=== PATIENT | male | born 1940 | race Caucasian/White ===

== ENCOUNTER 2020-12-28 16:41 | Inpatient (IN) | payer OTHER, SELFPAY ==
[2020-12-28 17:16] VITALS: BMI 35.2
[2020-12-28 18:09] VITALS: BP 118/64; PULSE 62; RESP 22; TEMP 36.7; O2SAT 93; O2SAT 96
--- NOTE | 2020-12-28 19:08 | P.HP_ITS ---
History of Present Illness History of Present Illness Date Patient Seen: 12/28/20 Time Patient Seen: 18:00 Chief complaint: DIRECT ADMIT FROM [facility] Narrative: Patient is 80-year-old male with history insulin dependent type 2 diabetes, hypertension, hyperlipidemia, TIA in April 2019 presented to [facility] Emergency Department on 12/27 with complaints of weakness, cough, diarrhea and confusion. Patient is able to give limited history but son reports that he has been declining in the past week with severe diarrhea and weakness to the point where son had to help him with all activities. Patient normally ambulates on his own and has been unable to get out of chair without help. Son also noticed there was some blood in his adult diaper. On presentation to ER patient had respiratory rate of 27 and sat of 84% on room air and subsequently 97% on 2 L. Noncontrast chest an abdomen pelvis CT showed bilateral diffuse consolidation as well as bilateral hydroureter and hydronephrosis. Outside labs showed WBC 5.4, hemoglobin 12.1, platelets 134. On chemistry sodium 137, potassium 4.3, chloride 104, CO2 16, anion gap 17, glucose 84, BUN 79, creatinine 3.28. He had mildly elevated LFTs with ALT 80, AST 75, normal bilirubin 0.2, normal alk-phos 89. He had abnormal UA with 4+ bacteria and greater than 100 WBC. Patient does note chronic difficulty urinating and history of BPH though is not on medications for his prostate. Patient is not vaccinated for COVID. Patient denies history of FL or stent or CHF. He is on furosemide for chronic edema in legs. Family history noncontributory. Lives with his son. Interventions in outside ER included aggressive IV hydration of 5 L, Rocephin 1 g IV, dexamethasone 6 mg IV. Patient is on Humulin N 68 units b.i.d., metformin 850 mg t.i.d., lisinopril 20 mg HS, glimepiride 4 mg b.i.d., furosemide 20 mg b.i.d., atorvastatin 80 mg HS, it atenolol 50 mg HS, clopidogrel 75 mg daily Meds Home Medications and Allergies Home Medications Medication Instructions Recorded Confirmed Type atenolol 50 mg tablet 50 mg PO BEDTIME 12/28/20 12/28/20 History atorvastatin 40 mg tablet 80 mg PO BEDTIME 12/28/20 12/28/20 History clopidogrel 75 mg tablet 75 mg PO DAILY 12/28/20 12/28/20 History furosemide 20 mg tablet 20 mg PO BID 12/28/20 12/28/20 History glimepiride 4 mg tablet 4 mg PO BID 12/28/20 12/28/20 History insulin NPH isoph U-100 human 100 68 unit SUBCUT BID 12/28/20 12/28/20 History unit/mL subcutaneous suspension (Humulin N NPH U-100 Insulin (isophane susp)) lisinopril 20 mg tablet 50 mg PO BEDTIME 12/28/20 12/28/20 History metformin 850 mg tablet 850 mg PO TID 12/28/20 12/28/20 History Review of Systems Review of Systems Narrative: Complete ROS negative unless otherwise noted. Exam Vital Signs (past 8 hours): - 12/28/20 18:09 Temperature 98.1 F Pulse Rate 62 Respiratory Rate 22 Blood Pressure 118/64 Pulse Oximetry 96 Oxygen Flow Rate 5 Narrative Exam Narrative: General: Obese male BMI 35 who appears lethargic but breathing comfortably HEENT: Pupils equal, anicteric Neck: No lymphadenopathy Lungs: Clear to auscultation Heart: Regular rhythm without murmur Abdomen: Obese, nontender, no HSM Extremities: Chronic venous stasis changes with mild edema and scabs on the right lower leg Neurological: Oriented to person and place, affect normal, speech somewhat diminished with difficulty recalling recent events of illness, no focal weakness Assessment & Plan Assessment & Plan narrative: 1. COVID-19 pneumonia with acute hypoxic respiratory failure -COVID positive with bilateral consolidation on outside CT -patient moderately ill with hypoxia on presentation, cough, profound weakness, and diarrhea as well as noted in acute renal failure -provide supplemental O2 currently on 4 L DC -dexamethasone 6 mg IV q.d. for up to 10 days, monitor blood sugars closely -remdesivir 200 mg x 1 then 100 mg IV q.d. x4 days -telemetry monitoring -check ESR, CRP, D-dimer -patient at high risk for clinical decline and potential need for mechanical ventilation to which he does provide consent 2. Urinary tract infection -outside UA with many bacteria and WBC, culture pending -continue Rocephin 1 g IV q.d. started at outside hospital, duration 7 days -follow-up culture results 3. Chronic urinary retention with bilateral hydronephrosis on CT -Mendez placed at outside ED, manage Mendez -start tamsulosin 0.4 mg q.d. with attempted trial of Mendez removal in 1 week 4. Insulin-dependent type 2 diabetes -check A1c -home regimen is Humulin N 68 units b.i.d., glimepiride 4 mg b.i.d. and metformin 850 mg t.i.d. -start Lantus 30 units b.i.d. which is approximately half his home insulin dosing, medium dose sliding scale -patient may require more insulin while on dexamethasone -hold glimepiride and metformin due to acute renal failure 5. Acute kidney injury -likely prerenal due to diarrhea associated with COVID -serum creatinine 3.2 at outside ED, baseline creatinine appears 1.48 from April 2019 -patient was aggressively hydrated at outside ED -recheck labs 6. Hypertension -hold patient's lisinopril and furosemide due to NIXON -continue atenolol 50 mg HS 7. History of TIA -continue patient's clopidogrel 75 mg q.d. and atorvastatin 80 mg q.p.m. DVT prophylaxis: Lovenox 30 mg subQ q.d. renal dosed Code status: Full code per wishes expressed at time of admission Surrogate decision maker: Son, review plan of care with patient's son Ranjit Curtis Time Spent With Patient Critical Care time: I spent a total of [] minutes of critical care time on this patient's care today; this time is exclusive of procedural time.
[2020-12-28 19:20] VITALS: O2SAT 93
[2020-12-28 19:30] LABS: Add Manual Diff / Slide Review NO; Basophils Absolute Auto 0 /uL (0-100); Basophils Percent Auto 0.1 % (0-2); Eosinophils Absolute Auto 0 /uL (0-450); Hematocrit 41.6 % (41-53); Hemoglobin 13.5 g/dL (13.5-17.5); Lymphocytes Absolute Auto 600 /uL (1100-4500); Lymphocytes Percent Auto 10.8 % (25-40); Mean Corpuscular HGB Conc 32.5 % (30-36); Monocytes Absolute Auto 400 /uL (0-900); Monocytes Percent Auto 7.3 % (3-14); Neutrophils Absolute Auto 4300 /uL (1500-7000); Neutrophils Percent Auto 81.8 % (50-75); Platelet Count 149 X10^3/uL (150-400); Red Blood Cell Count 4.84 X10^6/uL (4.5-5.9); Red Cell Distribution Width 16.3 % (11.6-14.8); White Blood Cell Count 5.3 X10^3/uL (4.5-11.0)
[2020-12-28 19:47] LABS: Alanine Aminotransferase 77 IU/L (<50); Albumin 3.5 g/dL (3.5-5.0); Albumin Globulin Ratio 1.1 (1.0-2.8); Alkaline Phosphatase 84 U/L (38-126); Aspartate Aminotransferase 88 IU/L (17-59); BUN Creatinine Ratio 35.3 (6-22); Bilirubin Total 0.3 mg/dL (0.2-1.3); Blood Urea Nitrogen 67 mg/dL (9-20); Calcium 7.6 mg/dL (8.4-10.2); Carbon Dioxide 15 mmol/L (22-32); Chloride 113 mmol/L (98-107); Estimated Glomerular Filt Rate 34.3 mL/min (>60); Globulin 3.3 g/dL (1.7-4.1); Glucose 201 mg/dL (80-110); HEMOLYSIS < 15 (0-50); Potassium 4.6 mmol/L (3.4-5.1); Sodium 140 mmol/L (137-145); Total Protein 6.8 g/dL (6.3-8.2)
[2020-12-28 19:48] LABS: Prothrombin Time 11.6 SECONDS (10.1-12.7)
[2020-12-28 19:56] LABS: D Dimer 517 ng/mL (<230)
[2020-12-28 20:00] LABS: Hemoglobin A1C% w Est Avg Glu 10.7 % (4.0-6.0)
[2020-12-28 20:04] LABS: C-Reactive Protein Quant 19.4 mg/dL (<1.0)
[2020-12-28 20:23] LABS: Erythrocyte Sedimentation Rate 58 MM/HR (0-15)
[2020-12-28] MEDS: REMDESIVIR 200 MG in SODIUM CHLORIDE 0.9% 210 ML 250 ML IV (20:29)
[2020-12-28] MEDS: ATORVASTATIN 20 MG TABLET 80 MG PO (20:32)
[2020-12-28] MEDS: INSULIN GLARGINE 100 UNIT/ML 3ML PEN 30 UNIT SUBCUT (21:46)
[2020-12-28] MEDS: INSULIN LISPRO 100 UNIT/ML 3ML VIAL SUBCUT (21:47)
[2020-12-28 22:09] VITALS: O2SAT 92
[2020-12-29] VITALS (18 sets, daily range): BP systolic 107–155; BP diastolic 58–83; PULSE 55–74; RESP 14–20; TEMP 36.1–36.6; O2SAT 92–98
[2020-12-29] MEDS: cefTRIAXone 1,000 MG in SODIUM CHLORIDE 0.9% 100 ML 200 ML IV (02:29)
[2020-12-29] MEDS: SODIUM CHLORIDE 0.9% 250 ML 21 ML IV (02:29)
[2020-12-29] MEDS: SODIUM CHLORIDE 0.9% FLUSH 10 ML IV ×3 (03:22→18:52)
[2020-12-29 05:05] LABS: Add Manual Diff / Slide Review NO; Basophils Absolute Auto 0 /uL (0-100); Basophils Percent Auto 0.2 % (0-2); Eosinophils Absolute Auto 0 /uL (0-450); Hematocrit 37.7 % (41-53); Hemoglobin 12.2 g/dL (13.5-17.5); Lymphocytes Absolute Auto 800 /uL (1100-4500); Lymphocytes Percent Auto 16.4 % (25-40); Mean Corpuscular HGB Conc 32.4 % (30-36); Mean Corpuscular Hemoglobin 27.6 PG (26-34); Mean Corpuscular Volume 85.3 fL (80-100); Monocytes Absolute Auto 500 /uL (0-900); Monocytes Percent Auto 9.7 % (3-14); Neutrophils Absolute Auto 3500 /uL (1500-7000); Neutrophils Percent Auto 73.7 % (50-75); Platelet Count 141 X10^3/uL (150-400); Red Blood Cell Count 4.42 X10^6/uL (4.5-5.9); Red Cell Distribution Width 15.8 % (11.6-14.8); White Blood Cell Count 4.8 X10^3/uL (4.5-11.0)
[2020-12-29 05:15] LABS: Alanine Aminotransferase 75 IU/L (<50); Alkaline Phosphatase 76 U/L (38-126); Aspartate Aminotransferase 84 IU/L (17-59); Bilirubin Total 0.1 mg/dL (0.2-1.3); Blood Urea Nitrogen 65 mg/dL (9-20); Calcium 7.8 mg/dL (8.4-10.2); Carbon Dioxide 18 mmol/L (22-32); Chloride 116 mmol/L (98-107); Estimated Glomerular Filt Rate 44.7 mL/min (>60); Glucose 305 mg/dL (80-110); HEMOLYSIS < 15 (0-50); Potassium 4.7 mmol/L (3.4-5.1); Sodium 142 mmol/L (137-145)
[2020-12-29] MEDS: METFORMIN HCL 500 MG TABLET 1000 MG PO ×2 (09:25→17:05)
[2020-12-29] MEDS: DEXAMETHASONE 10 MG/ML VIAL 6 MG IV (09:26)
[2020-12-29] MEDS: TAMSULOSIN 0.4 MG CAPSULE PO (09:26)
[2020-12-29] MEDS: ENOXAPARIN 30 MG/0.3 ML SYRINGE SUBCUT (09:26)
[2020-12-29] MEDS: CLOPIDOGREL 75 MG TABLET PO (09:26)
[2020-12-29] MEDS: INSULIN GLARGINE 100 UNIT/ML 3ML PEN 60 UNIT SUBCUT ×2 (09:29→20:42)
[2020-12-29] MEDS: INSULIN LISPRO 100 UNIT/ML 3ML VIAL SUBCUT ×4 (09:30→20:42)
[2020-12-29] MEDS: INSULIN LISPRO 100 UNIT/ML 3ML VIAL 15 UNIT SUBCUT ×3 (09:31→17:07)
[2020-12-29] MEDS: ACETAMINOPHEN 325 MG TABLET 650 MG PO ×2 (11:19→20:41)
--- NOTE | 2020-12-29 12:10 | CM.DANOTE ---
Patient is an 80 yo male who was admitted on 12/28/20 as Direct Admit from [facility] for COVID. Pt has [facility] ADV for insurance and his PCP is a doctor at the [facility]. EMR was reviewed. Per , pt Unvaccinated and admitted for COVID pneumonia and UTI and currently Full Code. SW spoke to pt's son via phone as pt currently on oxygen and in COVID precautions. Son [place] confirms he is pt's DPOA but unsure where pt's pwk/documentation is located and does not appear to be scanned into pt's current EMR. Son confirms that pt resides in son's home in [place] and is typically quite independent with ADL's at baseline. Pt prepares his own morning coffee and food as son works guard entrance registrar and ambulates with typically a cane but past couple weeks has declined in strength and has been using his walker. Pt still drives and son has been considering discussing giving up driving with the pt but as of yet has not. Son denies any hx of HH or SNF but states pt's spouse at [facility] and therefore if SNF needed they would prefer a different location. Son states he feels HH likely needed and SW discussed services and frequency and coverage under [facility] and son would be very agreeable to HH if pt safe for d/c home. No preference on HH agency. SW also discussed SNF in case pt not safe for d/c directly home and need for [facility] agency pending PT eval and recommendations once pt is more medically appropriate to participate. Son also discussed that he plans to begin seeking further DME like raised toilet seat etc and SW discussed that hospital PT/OT eval could help with determining DME needs and list of loaner/rental options and that HH could also do home assessment for DME needs and recommendations. Son interested in PP CG list as well for likely terminal make up operator needs once HH completed. Son has been experiencing COVID symptoms as well and awaiting his COVID test results from [employer] and has been quarantining himself but states once he tests negative he will need to return to work. HH vs SNF pending pt progress and eventual PT/OT eval. If SNF, [facility] auth will be needed. SW made HH initial referral to [facility] based on Vendor Calendar, but no F2F completed yet as still waiting for PT eval and recommendations. Plan: SW to follow closely for pt progress towards eventual PT/OT eval and recommendations towards determining HH vs SNF. If SNF, [facility] auth needed. If HH then F2F needed. Follow closely. BALAJI Mcdermott Discharge Planning/Care Management CM Discharge Assessment Start: 12/29/20 11:58 Freq: Status: Active Protocol: Document 12/29/20 11:58 BF (Rec: 12/29/20 12:10 BF [id number]) Discharge Planning Assessment Assigned Inverted Block Operator BALAJI Reich DPOA/Assigned Designee Name cherie Curtis Contact Information [phone] Advance Directives? No: son unsure where pwk is Advance Directives on File No History Provided By Patient,Family Member,Medical Record Has Patient been admitted in last 30 No days? Prior Living Arrangements House Household Members children Type of transporation used prior to Drives own vehicle admit Comment Lives with cherie Niño and still drives, but somewhat unsafely Independent with ADL's Yes Is patient alert and oriented? Yes Needs Assistance With Home Chores / Shopping Caregiver for Another No DME Already Rented / Owned FWW / Walker,Cane Patient/Family Preference Residential Facility,Home with Home Health Comment SNF vs HH pending eventual PT eval Barriers to Discharge No Discharge Plan Home with Home Health Community Services Physical Therapy,Occupational Therapy,Home Health Aid,Home Health Nurse Transportation Arrangement If safe for home, son can transport Referrals Initiated Home Health If patient plan is home with home health No : Has signed face to face form been completed? Medicare Choice List Provided Yes SNF/HH Preference No HH preference Review Status In Process Please Provide Date Initial DC 12/29/20 Assessment Was Performed Next Review Type Continued Stay Review
--- NOTE | 2020-12-29 15:58 | P.PN_ITS ---
Subjective Subjective Date Patient Seen: 12/29/20 Interval history: 80-year-old male with history insulin dependent type 2 diabetes, hypertension, hyperlipidemia, TIA in April 2019 presented initially to [facility] Emergency Department on 12/27 with complaints of weakness, cough, diarrhea and confusion.? Admitted here for COVID-19 pneumonia, hypoxic respiratory failure, NIXON and UTI. Patient states he is feeling significantly better since yesterday, breathing easier, less diarrhea. He is currently on 3 L O2. Exam Vital Signs (past 8 hours): - 12/29/20 08:12 12/29/20 08:28 12/29/20 11:30 Temperature 97.1 F L 97.9 F Pulse Rate 68 74 Respiratory Rate 20 20 Blood Pressure 133/65 147/83 H Pulse Oximetry 93 93 92 12/29/20 12:00 12/29/20 13:11 12/29/20 13:12 Temperature Pulse Rate Respiratory Rate Blood Pressure Pulse Oximetry 92 93 93 12/29/20 13:21 12/29/20 13:52 Temperature 97.3 F L 97.3 F L Pulse Rate 55 L 59 L Respiratory Rate 14 16 Blood Pressure 134/69 155/74 H Pulse Oximetry 97 98 Oxygen Delivery Method Nasal Cannula Oxygen Flow Rate 0 Narrative Exam Narrative: General: Alert and cooperative male without overtly labored breathing Lungs: Able to speak full sentences, CTA Heart: Regular rhythm Extremities: No edema Neurological: Appears well oriented Objective Labs Result Diagrams: 12/29/20 04:40 12/29/20 04:40 Labs: Laboratory Results - last 24 hr 12/28/20 12/28/20 12/28/20 19:20 19:20 19:20 WBC 5.3 RBC 4.84 Hgb 13.5 Hct 41.6 MCV 86.0 MCH 28.0 MCHC 32.5 RDW 16.3 H Plt Count 149 L Neut % (Auto) 81.8 H Lymph % (Auto) 10.8 L [place] % (Auto) 7.3 Eos % (Auto) 0.0 L Baso % (Auto) 0.1 Neut # (Auto) 4300 Lymph # (Auto) 600 L [place] # (Auto) 400 Eos # (Auto) 0 Baso # (Auto) 0 ESR PT INR D-Dimer Sodium 140 Potassium 4.6 Chloride 113 H Carbon Dioxide 15 L BUN 67 H Creatinine 1.90 H Estimated GFR 34.3 L BUN/Creatinine Ratio 35.3 H Glucose 201 H Hemoglobin A1c 10.7 H Calcium 7.6 L Total Bilirubin 0.3 AST 88 H ALT 77 H Alkaline Phosphatase 84 C-Reactive Protein Total Protein 6.8 Albumin 3.5 Globulin 3.3 Albumin/Globulin Ratio 1.1 12/28/20 12/28/20 12/28/20 19:20 19:20 19:20 WBC RBC Hgb Hct MCV MCH MCHC RDW Plt Count Neut % (Auto) Lymph % (Auto) [place] % (Auto) Eos % (Auto) Baso % (Auto) Neut # (Auto) Lymph # (Auto) [place] # (Auto) Eos # (Auto) Baso # (Auto) ESR 58 H PT 11.6 INR 1.0 D-Dimer 517 H Sodium Potassium Chloride Carbon Dioxide BUN Creatinine Estimated GFR BUN/Creatinine Ratio Glucose Hemoglobin A1c Calcium Total Bilirubin AST ALT Alkaline Phosphatase C-Reactive Protein Total Protein Albumin Globulin Albumin/Globulin Ratio 12/28/20 12/29/20 12/29/20 19:20 04:40 04:40 WBC 4.8 RBC 4.42 L Hgb 12.2 L Hct 37.7 L MCV 85.3 MCH 27.6 MCHC 32.4 RDW 15.8 H Plt Count 141 L Neut % (Auto) 73.7 Lymph % (Auto) 16.4 L [place] % (Auto) 9.7 Eos % (Auto) 0.0 L Baso % (Auto) 0.2 Neut # (Auto) 3500 Lymph # (Auto) 800 L [place] # (Auto) 500 Eos # (Auto) 0 Baso # (Auto) 0 ESR PT INR D-Dimer Sodium 142 Potassium 4.7 Chloride 116 H Carbon Dioxide 18 L BUN 65 H Creatinine 1.51 H Estimated GFR 44.7 L BUN/Creatinine Ratio 43.0 H Glucose 305 H D Hemoglobin A1c Calcium 7.8 L Total Bilirubin 0.1 L AST 84 H ALT 75 H Alkaline Phosphatase 76 C-Reactive Protein 19.4 H Total Protein 6.0 L Albumin 3.0 L Globulin 3.0 Albumin/Globulin Ratio 1.0 PFSH Social History household members: children Assessment & Plan Assessment & Plan narrative: 1. COVID-19 pneumonia with acute hypoxic r espiratory failure -unvaccinated male, COVID positive with bilateral consolidation on outside CT -elevated ESR, CRP, D-dimer -patient presented moderately ill with hypoxia on presentation, cough, profound weakness, and diarrhea as well as noted in acute renal failure -provide supplemental O2 currently on 3 L NC, improving O2 requirement -dexamethasone 6 mg IV q.d. for up to 10 days, monitor blood sugars closely -remdesivir 200 mg x 1 then 100 mg IV q.d. x4 days -telemetry monitoring -patient at high risk for clinical decline and potential need for mechanical ventilation to which he does provide consent 2. Urinary tract infection -outside UA with many bacteria and WBC, culture pending -continue Rocephin 1 g IV q.d. started at outside hospital, duration 7 days -follow-up culture results from [facility] 3. Chronic urinary retention with bilateral hydronephrosis on CT -Mendez placed at outside ED, manage Mendez -started tamsulosin 0.4 mg q.d. with attempted trial of Mendez removal in 1-2 weeks 4. 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 and metformin 850 mg t.i.d. -12/29 increased Lantus to 60 units b.i.d., started insulin lispro 15 units t.i.d. a.c., continued insulin lispromedium dose sliding scale -glucose 300 range on dexamethasone, continue insulin dose adjustment as required -holding glimepiride and metformin due to acute renal failure 5. Acute kidney injury, resolving -likely prerenal due to diarrhea associated with COVID -serum creatinine 3.2 at outside ED, baseline creatinine appears 1.48 from April 2019 -patient was aggressively hydrated at outside ED, has not required hydration here -recheck labs 6. Hypertension -holding patient's lisinopril and furosemide due to NIXON -continue atenolol 50 mg HS 7. History of TIA -continued patient's clopidogrel 75 mg q.d. and atorvastatin 80 mg q.p.m. 8. Acute metabolic encephalopathy, resolving -patient presented with confusion in setting of hypoxia, NIXON, COVID pneumonia and UTI DVT prophylaxis:? Lovenox 30 mg subQ q.d. renal dosed Code status:? Full code per wishes expressed by patient at time of admission Surrogate decision maker: Son, review plan of care with patient's son Ranjit Curtis Time Spent With Patient Critical Care time: I spent a total of [] minutes of critical care time on this patient's care today; this time is exclusive of procedural time.
[2020-12-29] MEDS: REMDESIVIR 100 MG in SODIUM CHLORIDE 0.9% 230 ML 250 ML IV (18:52)
[2020-12-29] MEDS: ATORVASTATIN 20 MG TABLET 80 MG PO (20:41)
[2020-12-29] MEDS: atenoloL 50 MG TABLET PO (20:41)
[2020-12-30] VITALS (12 sets, daily range): BP systolic 101–133; BP diastolic 55–99; PULSE 48–60; RESP 15–18; TEMP 35.8–36.6; O2SAT 90–96
[2020-12-30] MEDS: cefTRIAXone 1,000 MG in SODIUM CHLORIDE 0.9% 100 ML 200 ML IV (02:21)
[2020-12-30] MEDS: SODIUM CHLORIDE 0.9% FLUSH 10 ML IV ×3 (02:22→20:45)
[2020-12-30 09:25] LABS: BUN Creatinine Ratio 54.1 (6-22); Blood Urea Nitrogen 59 mg/dL (9-20); Calcium 8.3 mg/dL (8.4-10.2); Carbon Dioxide 19 mmol/L (22-32); Chloride 115 mmol/L (98-107); Estimated Glomerular Filt Rate > 60.0 mL/min (>60); Glucose 189 mg/dL (80-110); HEMOLYSIS < 15 (0-50); Potassium 4.9 mmol/L (3.4-5.1); Sodium 142 mmol/L (137-145)
[2020-12-30] MEDS: METFORMIN HCL 500 MG TABLET 1000 MG PO ×2 (09:51→17:09)
[2020-12-30] MEDS: INSULIN LISPRO 100 UNIT/ML 3ML VIAL SUBCUT ×4 (09:52→20:45)
[2020-12-30] MEDS: INSULIN GLARGINE 100 UNIT/ML 3ML PEN 60 UNIT SUBCUT ×2 (09:54→20:44)
[2020-12-30] MEDS: INSULIN LISPRO 100 UNIT/ML 3ML VIAL 15 UNIT SUBCUT ×3 (09:55→17:15)
[2020-12-30] MEDS: TAMSULOSIN 0.4 MG CAPSULE PO (09:56)
[2020-12-30] MEDS: CLOPIDOGREL 75 MG TABLET PO (09:56)
[2020-12-30] MEDS: DEXAMETHASONE 10 MG/ML VIAL 6 MG IV (09:56)
[2020-12-30] MEDS: ENOXAPARIN 40 MG/0.4 ML SYRINGE SUBCUT (09:57)
--- NOTE | 2020-12-30 12:22 | PM.PN.1 ---
Subjective Subjective Date Patient Seen: 12/30/20 Time Patient Seen: 08:00 Interval history: Today he has not had significant change in his breathing. He is slightly short of breath, coughing. He is more concerned about his diarrhea. He continues to have frequent diarrhea. Exam Vital Signs (past 8 hours): - 12/30/20 04:50 12/30/20 05:00 12/30/20 07:25 Temperature 96.8 F L Pulse Rate 48 L Respiratory Rate 16 Blood Pressure 116/63 Pulse Oximetry 91 91 92 12/30/20 08:30 12/30/20 12:00 Temperature 96.5 F L 96.8 F L Pulse Rate 53 L 60 Respiratory Rate 15 15 Blood Pressure 126/59 L 133/99 H Pulse Oximetry 93 96 Oxygen Delivery Method Nasal Cannula Oxygen Flow Rate 6 Narrative Exam Narrative: GEN: no acute distress CV: regular rate and rhythm, no murmurs PULM: clear bilaterally ABD: soft, nontender, nondistended, normal bowel sounds SKIN: intertrigo in skin folds Objective Labs Result Diagrams: 12/29/20 04:40 12/30/20 08:46 Labs: Laboratory Results - last 24 hr 12/30/20 08:46 Sodium 142 Potassium 4.9 Chloride 115 H Carbon Dioxide 19 L BUN 59 H Creatinine 1.09 Estimated GFR > 60.0 BUN/Creatinine Ratio 54.1 H Glucose 189 H D Calcium 8.3 L PFSH Social History household members: children Assessment & Plan Assessment & Plan narrative: 1. COVID-19 pneumonia with acute hypoxic respiratory failure -unvaccinated male, COVID positive with bilateral consolidation on outside CT -elevated ESR, CRP, D-dimer -patient presented moderately ill with hypoxia on presentation, cough, profound weakness, and diarrhea as well as noted in acute renal failure -provide supplemental O2 currently on 3 L NC, improving O2 requirement -dexamethasone 6 mg IV q.d. for up to 10 days, monitor blood sugars closely -remdesivir 200 mg x 1 then 100 mg IV q.d. x4 days -telemetry monitoring -patient at high risk for clinical decline and potential need for mechanical ventilation to which he does provide consent 2. Urinary tract infection -outside UA with many bacteria and WBC, culture pending -continue Rocephin 1 g IV q.d. started at outside hospital, duration 7 days -follow-up culture results from [facility] 3. Chronic urinary retention with bilateral hydronephrosis on CT -Mendez placed at outside ED, manage Mendez -started tamsulosin 0.4 mg q.d. with attempted trial of Mendez removal in 1-2 weeks 4. 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 and metformin 850 mg t.i.d. -12/29 increased Lantus to 60 units b.i.d., started insulin lispro 15 units t.i.d. a.c., continued insulin lispromedium dose sliding scale -glucose 300 range on dexamethasone, continue insulin dose adjustment as required -holding glimepiride and metformin due to acute renal failure 5. Acute kidney injury, resolved -likely prerenal due to diarrhea associated with COVID -serum creatinine 3.2 at outside ED, baseline creatinine appears 1.48 from April 2019, improved to 1.0 -patient was aggressively hydrated at outside ED, has not required hydration here 6. Hypertension -holding patient's lisinopril and furosemide due to NIXON -continue atenolol 50 mg HS 7. History of TIA -continued patient's clopidogrel 75 mg q.d. and atorvastatin 80 mg q.p.m. 8. Acute metabolic encephalopathy, resolving -patient presented with confusion in setting of hypoxia, NIXON, COVID pneumonia and UTI DVT prophylaxis:? Lovenox 30 mg subQ q.d. renal dosed Code status:? Full code per wishes expressed by patient at time of admission Surrogate decision maker: Ranjit Jolly Time Spent With Patient Critical Care time: I spent a total of [] minutes of critical care time on this patient's care today; this time is exclusive of procedural time.
[2020-12-30] MEDS: NYSTATIN POWDER 15GM 1 APPLIC TOP (17:10)
[2020-12-30] MEDS: REMDESIVIR 100 MG in SODIUM CHLORIDE 0.9% 230 ML 250 ML IV (19:31)
[2020-12-30 20:37] LABS: Clostridium Difficile Tox PCR Negative for C. diff (Negative)
[2020-12-30] MEDS: ATORVASTATIN 20 MG TABLET 80 MG PO (20:42)
[2020-12-30] MEDS: atenoloL 50 MG TABLET PO (20:42)
[2020-12-31] VITALS (25 sets, daily range): BP systolic 99–155; BP diastolic 50–75; PULSE 51–90; RESP 18–30; TEMP 35.9–36.6; O2SAT 85–95
--- NOTE | 2020-12-31 00:55 | PC.NURSE ---
Addendum entered by Sho Laureano R.N. 12/31/20 06:52: Patient desating during the night and was on 11L/min HFNC earlier with sat at 90% but is now consistently dropping down to 87% at rest so have now increased up to 14L/min in order to get sat up to 90%. RT contacted regarding increased oxygen needs. Original Note: Patient is alert and oriented but soft spoken and hard of hearing. Breath sounds diminished throughout but CTA. On oxygen at 7L/min per HFNC with sat of 92%. Slight SOB at rest but desats with activity of turning side to side. Occasional non-productive cough. HRR w/telemetry reading of SR w/BBB. Denies nausea. BT present and abdomen soft. Incontinent of stool plus had BM on bedpan. Indwelling catheter is patent. Is being assisted to reposition but preferring to lie on back with HOB elevated. Denies pain. On isolation for COVID. Fall risk score is high and bed alarm is activated.
[2020-12-31] MEDS: cefTRIAXone 1,000 MG in SODIUM CHLORIDE 0.9% 100 ML 200 ML IV (02:31)
[2020-12-31] MEDS: SODIUM CHLORIDE 0.9% 250 ML 21 ML IV ×2 (02:32→18:46)
[2020-12-31] MEDS: SODIUM CHLORIDE 0.9% FLUSH 10 ML IV ×3 (02:32→18:47)
[2020-12-31 05:40] LABS: BUN Creatinine Ratio 55.8 (6-22); Blood Urea Nitrogen 58 mg/dL (9-20); Calcium 8.6 mg/dL (8.4-10.2); Carbon Dioxide 19 mmol/L (22-32); Chloride 116 mmol/L (98-107); Estimated Glomerular Filt Rate > 60.0 mL/min (>60); Glucose 166 mg/dL (80-110); HEMOLYSIS < 15 (0-50); Sodium 141 mmol/L (137-145)
[2020-12-31 05:43] LABS: Potassium 5.6 mmol/L (3.4-5.1)
[2020-12-31 05:45] LABS: Hemoglobin 12.6 g/dL (13.5-17.5); Mean Corpuscular HGB Conc 32.2 % (30-36); Mean Corpuscular Hemoglobin 27.6 PG (26-34); Mean Corpuscular Volume 85.5 fL (80-100); Platelet Count 192 X10^3/uL (150-400); Red Blood Cell Count 4.56 X10^6/uL (4.5-5.9); White Blood Cell Count 7.7 X10^3/uL (4.5-11.0)
[2020-12-31] MEDS: INSULIN LISPRO 100 UNIT/ML 3ML VIAL SUBCUT ×3 (08:46→17:30)
[2020-12-31] MEDS: INSULIN LISPRO 100 UNIT/ML 3ML VIAL 15 UNIT SUBCUT ×3 (08:47→17:34)
[2020-12-31] MEDS: TAMSULOSIN 0.4 MG CAPSULE PO (08:48)
[2020-12-31] MEDS: CLOPIDOGREL 75 MG TABLET PO (08:48)
[2020-12-31] MEDS: INSULIN GLARGINE 100 UNIT/ML 3ML PEN 60 UNIT SUBCUT ×2 (08:49→21:06)
[2020-12-31] MEDS: DEXAMETHASONE 10 MG/ML VIAL 6 MG IV (08:51)
[2020-12-31] MEDS: ENOXAPARIN 40 MG/0.4 ML SYRINGE SUBCUT ×2 (08:58→21:04)
[2020-12-31] MEDS: METFORMIN HCL 500 MG TABLET 1000 MG PO ×2 (09:00→18:45)
--- NOTE | 2020-12-31 11:57 | RT ---
Consulted Dr. Linn about follow-up ABG and he declined, will continue to monitor and update as needed.
--- NOTE | 2020-12-31 14:35 | P.PN_ITS ---
Subjective Subjective Date Patient Seen: 12/31/20 Time Patient Seen: 14:35 Interval history: Today he has not had significant change in his breathing, actually feels somewhat better but was advanced to heated high flow. Started on baricitinib today. Diarrhea has improved. Exam Vital Signs (past 8 hours): - 12/31/20 07:12 12/31/20 08:00 12/31/20 10:11 Temperature Pulse Rate 57 L 51 L Respiratory Rate 20 30 H Blood Pressure 99/50 L 129/61 Pulse Oximetry 92 92 89 L 12/31/20 10:18 12/31/20 12:00 12/31/20 12:56 Temperature 98 F Pulse Rate 64 64 Respiratory Rate 21 30 H Blood Pressure 131/64 131/64 Pulse Oximetry 92 94 92 Fraction of Inspired Oxygen 60 Oxygen Delivery Method Heated High Flow Oxygen Flow Rate 55 Narrative Exam Narrative: GEN: no acute distress CV: regular rate and rhythm, no murmurs PULM: clear bilaterally ABD: soft, nontender, nondistended, normal bowel sounds SKIN: intertrigo in skin folds Objective Labs Result Diagrams: 12/31/20 04:50 12/31/20 04:50 Labs: Laboratory Results - last 24 hr 12/30/20 12/31/20 12/31/20 17:30 04:50 04:50 WBC 7.7 RBC 4.56 Hgb 12.6 L Hct 39.0 L MCV 85.5 MCH 27.6 MCHC 32.2 RDW 16.0 H Plt Count 192 Sodium 141 Potassium 5.6 H Chloride 116 H Carbon Dioxide 19 L BUN 58 H Creatinine 1.04 Estimated GFR > 60.0 BUN/Creatinine Ratio 55.8 H Glucose 166 H Calcium 8.6 Nasal Screen MRSA (PCR) C. difficile Tox (PCR) Negative for c. diff 12/31/20 09:20 WBC RBC Hgb Hct MCV MCH MCHC RDW Plt Count Sodium Potassium Chloride Carbon Dioxide BUN Creatinine Estimated GFR BUN/Creatinine Ratio Glucose Calcium Nasal Screen MRSA (PCR) Negative for mrsa C. difficile Tox (PCR) [facility] Social History household members: children Assessment & Plan Assessment & Plan narrative: 1. COVID-19 pneumonia with acute hypoxic respiratory failure -unvaccinated male, COVID positive with bilateral consolidation on outside CT -elevated ESR, CRP, D-dimer -patient presented moderately ill with hypoxia on presentation, cough, profound weakness, and diarrhea as well as noted in acute renal failure -provide supplemental O2 currently on heated high flow nasal cannula, worsened today. -dexamethasone 6 mg IV q.d. for up to 10 days, monitor blood sugars closely -remdesivir 200 mg x 1 then 100 mg IV q.d. x4 days -baricitinib started 12/31 after advancing to heated high flow. -telemetry monitoring -full code, okay with intubation if necessary. 2. Urinary tract infection -outside UA with many bacteria and WBC, culture pending -continue Rocephin 1 g IV q.d. started at outside hospital, duration 7 days -follow-up culture results from [facility] [place] 3. Chronic urinary retention with bilateral hydronephrosis on CT -Mendez placed at outside ED, manage Mendez -started tamsulosin 0.4 mg q.d. with attempted trial of Mendez removal in 1-2 weeks 4. 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 and metformin 850 mg t.i.d. -12/29 increased Lantus to 60 units b.i.d., started insulin lispro 15 units t.i.d. a.c., continued insulin lispromedium dose sliding scale -glucose 300 range on dexamethasone, continue insulin dose adjustment as required -holding glimepiride and metformin due to acute renal failure 5. Acute kidney injury, resolved -likely prerenal due to diarrhea associated with COVID -serum creatinine 3.2 at outside ED, baseline creatinine appears 1.48 from April 2019, improved to 1.0 -patient was aggressively hydrated at outside ED, has not required hydration here 6. Hypertension -holding patient's lisinopril and furosemide due to NIXON -continue atenolol 50 mg HS 7. History of TIA -continued patient's clopidogrel 75 mg q.d. and atorvastatin 80 mg q.p.m. 8. Acute metabolic encephalopathy, resolving -patient presented with confusion in setting of hypoxia, NIXON, COVID pneumonia and UTI DVT prophylaxis:? Lovenox 30 mg subQ q.d. renal dosed Code status:? Full code per wishes expressed by patient at time of admission Surrogate decision maker: Ranjit Jolly Time Spent With Patient Critical Care time: I spent a total of [] minutes of critical care time on this patient's care today; this time is exclusive of procedural time.
[2020-12-31] MEDS: BARICITINIB 2 MG TABLET 4 MG PO (14:36)
--- NOTE | 2020-12-31 14:58 | PC.NURSE ---
PT MOVED FROM 223 TO 226 THIS AM FOR WORSENING COVID PNA AND INCREASED OXYGEN NEEDS- HE IS PRESENTLY ON HHFNC AT 55L/65% - LUNGS DIM AND PT FREQUENTLY GET ANXIOUS AND KICKS LEGS AROUND HE IS EASILY FRUSTRATED- HE DECLINES TO PRONE BUT WILL SIDE LIE FOR ONLY MINUTES AT A TIME- SKIN REMAINS SOMEWHAT FUNGAL AND THICKENED AND REDDENED BILAT LOWER EXTREMITIES- USING INCENTIVE SPIROMETER TO 1200-1500MLS. HE REQUIRES FREQUENT REMINDERS RE: COVID PROTOCOL- SCDS'S IN PLACE
--- NOTE | 2020-12-31 16:30 | PC.NURSE ---
Addendum entered by Tatyana Yu R.N. 12/31/20 17:55: pt up to BSC; 2 person moderate assist, then to chair for dinner. pt had 1 milk, few bites of jello and PBJ only. states, I don't have an appetite but at least I'm not nauseous. desat to 80% with eating; recovers but states tires easily. 2 person back to bed; high fowlers. skin: scabs on right sheppard; B/L sheppard reddish skin. rectal area and buttocks red, tender. Original Note: This RN asked pt if he proned today. He stated, I did alittle bit today. pt states he understands the importance of it. He used incentive spirometer then sats down to 86%. slowly recovers. HOB elevated. pt drinking ice water.
--- NOTE | 2020-12-31 18:05 | PC.NURSE ---
K 5.8 Dr. Linn notified.
[2020-12-31] MEDS: REMDESIVIR 100 MG in SODIUM CHLORIDE 0.9% 230 ML 250 ML IV (18:45)
--- NOTE | 2020-12-31 20:31 | PM.ICURNDS ---
- :: Unable to visualize patient given camera is offline --> staff notified Note: 80 y.o. male with acute hypoxic respiratory failure due to COVID-19. Labs/orders reviewed. Interventions made: 1) Ceftriaxone increased to 2 grams daily due to obesity 2) Enoxaparin changed to 40 mg SUBQ BID (high dose chemoprophylaxis) due to combination of FiO2 requirement and obesity 3) Will repeat K+ given most recent value (mildly hyperkalemic) 4) Will stop metformin given overall clinical situation Plans discussed with bedside staff
[2020-12-31] MEDS: cefTRIAXone 2,000 MG in SODIUM CHLORIDE 0.9% 100 ML 200 ML IV (21:04)
[2020-12-31] MEDS: ATORVASTATIN 20 MG TABLET 80 MG PO (21:04)
[2020-12-31 21:43] LABS: HEMOLYSIS < 15 (0-50); Potassium 4.7 mmol/L (3.4-5.1)
[2021-01-01] VITALS (37 sets, daily range): BP systolic 117–172; BP diastolic 56–87; PULSE 50–92; RESP 15–31; TEMP 36.2–36.8; O2SAT 86–97
[2021-01-01 05:26] LABS: Alanine Aminotransferase 49 IU/L (<50); Albumin 2.9 g/dL (3.5-5.0); Alkaline Phosphatase 66 U/L (38-126); Aspartate Aminotransferase 53 IU/L (17-59); BUN Creatinine Ratio 61.9 (6-22); Bilirubin Total 0.2 mg/dL (0.2-1.3); Blood Urea Nitrogen 52 mg/dL (9-20); Calcium 8.3 mg/dL (8.4-10.2); Carbon Dioxide 19 mmol/L (22-32); Chloride 117 mmol/L (98-107); Estimated Glomerular Filt Rate > 60.0 mL/min (>60); Globulin 2.9 g/dL (1.7-4.1); Glucose 85 mg/dL (80-110); HEMOLYSIS 32 (0-50); Potassium 4.6 mmol/L (3.4-5.1); Sodium 142 mmol/L (137-145); Total Protein 5.8 g/dL (6.3-8.2)
--- NOTE | 2021-01-01 05:30 | PC.NURSE ---
Addendum entered by Marcia Whitfield R.N. 01/01/21 06:19: 0615- Dr Benavides updated on patient condition and orders rec. Original Note: 0430- Patient having difficulty maintaining saturations. After a bowel movement patient was unable to rebound saturations to 88%. Patient started having circumoral cyanosis so 100% NRB mask was added and Respiratory therapy called. Patient titrated to 60 liters and 80% FI02 and responed with a saturation of 92 %. Will monitor closely.
--- NOTE | 2021-01-01 06:16 | DI.RAD.S_ITS ---
PROCEDURE: XR CHEST 1V INDICATIONS: increased 02 needs TECHNIQUE: One view of the chest was acquired. COMPARISON: None. FINDINGS: Surgical changes and devices: None. Lungs and pleura: Bilateral patchy interstitial type infiltrates are seen, left worse than right. Low lung volumes are noted. This causes a crowded appearance to the lung markings and limits evaluation. No pneumothorax or pleural effusions are seen. Mediastinum: Mediastinal contours appear normal. Heart size is normal. Bones and chest wall: No suspicious bony lesions. Age-appropriate bony degenerative changes are seen. Overlying soft tissues appear unremarkable. IMPRESSION: Bilateral interstitial infiltrates are seen. Please consider COVID pneumonia. Note: No significant discrepancy from the preliminary report. Dictated by: James Maurer M.D. on 01/01/2021 at 7:08 Approved by: James Maurer M.D. on 01/01/2021 at 7:09
[2021-01-01 08:08] LABS: Fractionated Inspired Oxygen 100; HCO3 ABG 17 mmol/L (22-26); Oxygen Saturation ABG 94 % (95-100); PCO2 ABG 26.9 mmHg (35-45); PO2 ABG 68 mmHg (80-100); TCO2 ABG 17 mmol/L (21-31)
[2021-01-01] MEDS: BARICITINIB 2 MG TABLET 4 MG PO (08:46)
[2021-01-01] MEDS: DEXAMETHASONE 10 MG/ML VIAL 6 MG IV (08:46)
[2021-01-01] MEDS: ACETAMINOPHEN 325 MG TABLET 650 MG PO (08:47)
[2021-01-01] MEDS: TAMSULOSIN 0.4 MG CAPSULE PO (08:47)
[2021-01-01] MEDS: SODIUM CHLORIDE 0.9% FLUSH 10 ML IV (08:47)
[2021-01-01] MEDS: CLOPIDOGREL 75 MG TABLET PO (10:21)
[2021-01-01] MEDS: ENOXAPARIN 40 MG/0.4 ML SYRINGE SUBCUT ×2 (10:22→20:30)
[2021-01-01] MEDS: INSULIN LISPRO 100 UNIT/ML 3ML VIAL SUBCUT ×3 (11:58→20:37)
[2021-01-01] MEDS: INSULIN LISPRO 100 UNIT/ML 3ML VIAL 15 UNIT SUBCUT ×2 (11:59→17:47)
--- NOTE | 2021-01-01 13:13 | PC.NURSE ---
Addendum entered by Tatyana Yu R.N. 01/01/21 18:18: cpap 10/40 x1-2 hrs. pt restless. 1720 O2 changed to HHF for supper. pt sitting at side of bed with feet dangling. pt states I feel human now. pt fed self and some assist due to tremors. scds off at this time. 15 u lispro given for supper and pt ate about 50%. O2 sat 88-91%. lungs coarse with fine crackles bibasilar. started with moist cough. Addendum entered by Tatyana Yu R.N. 01/01/21 15:01: Dr. Linn notified of right enlarged, hard testicle, am Lantus held and HR 50's all shift. pt in chair position in bed. O2 sat 89% Original Note: this morning, pt slow to respond and having difficulty answering questions. O2 60L/90%, sat 86-88%. pt proned for 30-40min. O2 sat up to 96%. positioned to left side, O2 sats stayed 90ish%. pt able to sleep. ensure juice, OJ and infused water given to pt for CBG 66. For lunch, took yogart and fruit. Held Lantus and 15U insulin.
--- NOTE | 2021-01-01 15:39 | CM.DPC ---
Addendum entered by BALAJI Mcdonnell 01/02/21 11:04: 9; Dr Linn updates DCP team via multidisciplinary rounds- patient clinically getting worse, now w/confusion and agitation. Patient is not a candidate for brain MRI d/t his dependence on O2. Per patient's prior stated wishes, full code w/intubation if required. Following closely JW Original Note: DCP Cont: Per MD, pt making very slow progress and actually now on decreased oxygen at 80%. Per RN, when pt on his side he does so much better. Pt has not been appropriate to work with therapies yet. If SNF needed, [facility] auth would need to be obtained and barrier to SNF is pt's COVID+ status. Plan: SW to follow closely for d/c planning needs with pt and his adult son he lives with and eventual PT/OT eval. BALAJI Mcdermott
--- NOTE | 2021-01-01 16:02 | PM.PN.1 ---
Subjective Subjective Date Patient Seen: 01/01/21 Time Patient Seen: 16:02 Interval history: Feels more short of breath with activity. Advanced to heated high flow overnight, was on maximal settings, now improved to 60L and 85%. Exam Vital Signs (past 8 hours): - 01/01/21 10:28 01/01/21 10:35 01/01/21 12:00 Temperature 97.6 F Pulse Rate 51 L 56 L Respiratory Rate 16 16 17 Blood Pressure 169/87 H 117/56 L Pulse Oximetry 97 95 90 L 01/01/21 12:40 Temperature Pulse Rate 72 Respiratory Rate 20 Blood Pressure 117/56 L Pulse Oximetry 92 Fraction of Inspired Oxygen 0.82 Oxygen Delivery Method Heated High Flow Oxygen Flow Rate 60 Narrative Exam Narrative: GEN: no acute distress, obese CV: regular rate and rhythm, no murmurs PULM: clear bilaterally without wheezing. ABD: soft, nontender, nondistended, normal bowel sounds SKIN: intertrigo in skin folds Objective Labs Result Diagrams: 12/31/20 04:50 01/01/21 05:00 Labs: Laboratory Results - last 24 hr 12/31/20 01/01/21 01/01/21 21:19 05:00 07:16 ABG pH 7.40 ABG pCO2 26.9 L ABG pO2 68 L ABG HCO3 17 L ABG Total CO2 17 L ABG O2 Saturation 94 L ABG Base Excess -8.0 L FiO2 100 Sodium 142 Potassium 4.7 4.6 Chloride 117 H Carbon Dioxide 19 L BUN 52 H Creatinine 0.84 Estimated GFR > 60.0 BUN/Creatinine Ratio 61.9 H Glucose 85 Calcium 8.3 L Total Bilirubin 0.2 AST 53 ALT 49 Alkaline Phosphatase 66 Total Protein 5.8 L Albumin 2.9 L Globulin 2.9 Albumin/Globulin Ratio 1.0 [facility] Medical History (Updated 01/01/21 @ 16:05 by Romeo Linn DO) HLD (hyperlipidemia) HTN (hypertension) Type 2 diabetes mellitus Social History household members: children Assessment & Plan Assessment & Plan narrative: 1. COVID-19 pneumonia with acute hypoxic respiratory failure -unvaccinated male, COVID positive with bilateral consolidation on outside CT -elevated ESR, CRP, D-dimer -patient presented moderately ill with hypoxia on presentation, cough, profound weakness, and diarrhea as well as noted in acute renal failure -provide supplemental O2 currently on heated high flow nasal cannula, worsened overnight. -dexamethasone 6 mg IV q.d. for up to 10 days, monitor blood sugars closely -remdesivir 200 mg x 1 then 100 mg IV q.d. x4 days -baricitinib started 12/31 after advancing to heated high flow. -telemetry monitoring -full code, okay with intubation if necessary per discussions initially, however does not feel that he would want tracheostomy. Advised him to further think on whether intubation is something he really wants. 2. Urinary tract infection -outside UA with many bacteria and WBC, culture pending -continue Rocephin 1 g IV q.d. started at outside hospital, duration 7 days -follow-up culture results from [facility] [place] 3. Chronic urinary retention with bilateral hydronephrosis on CT -Mendez placed at outside ED, manage Mendez -started tamsulosin 0.4 mg q.d. with attempted trial of Mendez removal in 1-2 weeks 4. 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 and metformin 850 mg t.i.d. -12/29 increased Lantus to 60 units b.i.d. but now with hypoglycemia this AM. Reduce again to 50 U BID. started insulin lispro 15 units t.i.d. a.c., continued insulin lispro medium dose sliding scale -glucose 300 range on dexamethasone initially, continue insulin dose adjustment as required -holding glimepiride and metformin due to acute renal failure 5. Acute kidney injury, resolved -likely prerenal due to diarrhea associated with COVID, possible obstructive component as well. -serum creatinine 3.2 at outside ED, baseline creatinine appears 1.48 from April 2019, improved to 0.84 now. -patient was aggressively hydrated at outside ED, has not required hydration here 6. Hypertension -holding patient's lisinopril and furosemide due to NIXON -continue atenolol 50 mg HS 7. History of TIA -continued patient's clopidogrel 75 mg q.d. and atorvastatin 80 mg q.p.m. 8. Acute metabolic encephalopathy, resolving -patient presented with confusion in setting of hypoxia, NIXON, COVID pneumonia and UTI DVT prophylaxis:? Lovenox 30 mg subQ q.d. renal dosed Code status:? Full code per wishes expressed by patient at time of admission, rediscussed today and he remains full code but is less sure than initially after discussions on possible tracheostomy or assisted intubation. Surrogate decision maker: SonRanjit COVID-19 COVID-19 status: Positive Time Spent With Patient Critical Care time: I spent a total of [] minutes of critical care time on this patient's care today; this time is exclusive of procedural time.
[2021-01-01] MEDS: REMDESIVIR 100 MG in SODIUM CHLORIDE 0.9% 230 ML 200 ML IV (18:39)
[2021-01-01] MEDS: SODIUM CHLORIDE 0.9% 250 ML 21 ML IV (18:39)
--- NOTE | 2021-01-01 20:20 | PM.ICURNDS ---
- Date Patient Seen: 01/01/21 Time Patient Seen: 20:20 :: This patient was seen via real time interactive two-way audiovisual telecommunication. Note: HFNC currently at 60 L/min 80% FiO2. Has proned but unable to keep this position long due to hip pain. Hypoglycemic this AM; hospitalist decreased insulin glargine from 60 to 50 units BID; of note, he also has an order for prandial Lispro 15 units. Appetite is poor. RN also reports bradycardia overnight, possibly due to combination of atenolol 50 mg and remdesivir. INTERVENTIONS: 1. Prandial Lispro discontinued 2. Insulin glargine reduced further to 30 units BID 3. Atenolol reduced to 25 mg daily with instructions to hold for HR <50 Otherwise, continue with current plan; discussed with RN and RT.
[2021-01-01] MEDS: atenoloL 50 MG TABLET 25 MG PO (20:29)
[2021-01-01] MEDS: ATORVASTATIN 20 MG TABLET 80 MG PO (20:30)
[2021-01-01] MEDS: cefTRIAXone 2,000 MG in SODIUM CHLORIDE 0.9% 100 ML 200 ML IV (20:32)
[2021-01-01] MEDS: INSULIN GLARGINE 100 UNIT/ML 3ML PEN 30 UNIT SUBCUT (20:36)
[2021-01-02] VITALS (39 sets, daily range): BP systolic 129–206; BP diastolic 68–101; PULSE 37–97; RESP 0–31; TEMP 35.9–36.8; O2SAT 71–100
[2021-01-02 06:01] LABS: Alanine Aminotransferase 46 IU/L (<50); Albumin 2.9 g/dL (3.5-5.0); Alkaline Phosphatase 82 U/L (38-126); Aspartate Aminotransferase 42 IU/L (17-59); BUN Creatinine Ratio 56.1 (6-22); Bilirubin Total 0.4 mg/dL (0.2-1.3); Blood Urea Nitrogen 37 mg/dL (9-20); Calcium 8.3 mg/dL (8.4-10.2); Carbon Dioxide 23 mmol/L (22-32); Chloride 113 mmol/L (98-107); Estimated Glomerular Filt Rate > 60.0 mL/min (>60); Glucose 127 mg/dL (80-110); HEMOLYSIS < 15 (0-50); Sodium 140 mmol/L (137-145); Total Protein 5.9 g/dL (6.3-8.2)
[2021-01-02] MEDS: DEXAMETHASONE 10 MG/ML VIAL 6 MG IV (08:03)
[2021-01-02] MEDS: BARICITINIB 2 MG TABLET 4 MG PO (08:04)
[2021-01-02] MEDS: ENOXAPARIN 40 MG/0.4 ML SYRINGE SUBCUT ×2 (08:04→23:30)
[2021-01-02] MEDS: TAMSULOSIN 0.4 MG CAPSULE PO (08:04)
[2021-01-02] MEDS: CLOPIDOGREL 75 MG TABLET PO (08:04)
[2021-01-02] MEDS: SODIUM CHLORIDE 0.9% FLUSH 10 ML IV (08:04)
[2021-01-02] MEDS: INSULIN GLARGINE 100 UNIT/ML 3ML PEN 30 UNIT SUBCUT (08:05)
[2021-01-02] MEDS: LORazepam 2 MG/ML INJ 0.5 MG IV (09:33)
[2021-01-02 09:37] LABS: PCO2 ABG 24.7 mmHg (35-45); pH ABG 7.48 (7.35-7.45)
[2021-01-02 09:38] LABS: HCO3 ABG 18 mmol/L (22-26); PO2 ABG 44 mmHg (80-100)
[2021-01-02 09:39] LABS: Fractionated Inspired Oxygen 80; Oxygen Saturation ABG 84 % (95-100); TCO2 ABG 19 mmol/L (21-31)
--- NOTE | 2021-01-02 10:04 | PC.NURSE ---
Addendum entered by Luis Manuel Rizo R.N. 01/02/21 15:06: Hospitalist rounded. Pt fell asleep before precedex gtt available to hang. Pt removed his case monitor several times prior to falling asleep. Hospitalist states ok to leave case monitor off, allow pt to sleep. Addendum entered by Luis Manuel Rizo R.N. 01/02/21 14:43: Pt has only been able to sleep for about 10 continuous minutes at a time. Startles awake and rips off gown, monitoring devices, pulling at rao catheter, IV lines, removing O2. RT placed pt back on HHFNC 60L 95%. Unable to obtain ABG due to pt not cooperative at this time. Reported to Dr. Linn. Orders received to start precedex gtt. Addendum entered by Luis Manuel Rizo R.N. 01/02/21 13:00: 1245- Pt removing gown, pulling off leads, removing O2 despite medications, redirection, reorientation, 1:1 staff. Pt ripped apart heated high flow cannula. Placed pt on 15L NRB and administered PRN haldol. Post med administration, pt is intermittently restless but leaving O2 on. SPO2 91-94%. Update given to RT regarding O2 modality. Addendum entered by Luis Manuel Rizo R.N. 01/02/21 10:37: Pt increasingly confused/restless, attempting to pull lines and O2. Despite consistent staff, reorientation, redirection, careful explanation, and 1:1 staff- pt remains tenuous and SPO2 79-89%. Called to hospitalist and reported assessment findings. Orders received to administer haldol. Original Note: 0800- I need to get out of bed. Pt repeating need to get OOB. Unable to explain why he needs to get OOB. Able to state name, that he is in the hospital, and the year. Pt is having difficulty with word finding. Left eye is noted to not open as widely as the right eye which pt states is baseline. Pt is moving all extremities to command and demonstrates no drift of extremities. Pt has baseline neuropathy to BLE that he states is unchanged from baseline. Pupils are equal, round, and reactive at 3MM bilaterally. Denies any visual changes. Rechecked BG result = 103. Pt is noted to have BUE tremors and is restless/anxious but unable to identify or explain specific needs. SPO2 is difficult to assess due to artifact from pt movement. Reapplied O2 probe to right toe and noted SPO2 80% (well defined pleth) on 60L 80% HHFNC. RR mid 40s. Administered 100% O2 flush and assisted pt to left side lying which increased his SPO2 88-91% after about 10 minutes. Notified RT of assessment findings and requested RT to eval need for ABG or changes to O2 modality. After discussion with hospitalist, order received to obtain ABG. RT obtained ABG, increased fio2 to 95% and reported findings to hospitalist. Reported pt increasingly restless/anxious/confused. Unable to remain in sidelying position or prone. Orders received for IV ativan. Administered and assisted pt to prone positioning with SPO2 increasing to 93%. Despite attempts to make pt more comfortable with proning, pt is having difficulty maintaining this position and requiring ongoing staff assist to maintain positioning, provide reminders to stay in prone or sidelying position, leave O2 cannula in.
[2021-01-02] MEDS: HALOPERIDOL 5 MG/ML VIAL 2 MG IV ×3 (10:42→12:58)
[2021-01-02] MEDS: HALOPERIDOL 5 MG/ML VIAL 3 MG IV (11:14)
[2021-01-02] MEDS: LORazepam 2 MG/ML INJ IV (12:20)
[2021-01-02] MEDS: DEXTROSE 5%-0.45% NS 1,000 ML 100 ML IV (12:40)
--- NOTE | 2021-01-02 13:17 | PM.PN.1 ---
Subjective Subjective Date Patient Seen: 01/02/21 Time Patient Seen: 13:22 Interval history: Patient becoming increasingly confused, pulling at lines, maxed settings on heated high flow. Kept pulling at lines, states he wants to sleep but is very delirious. Desats with any activity or movement. Discussed with son, attempt as much as possible to avoid intubation, but if necessary proceed per patient's previous wishes. Improved oxygenation with non-rebreather mask. Will attempt pain control and sedation with fentanyl dose, possible precedex infusion. Will reattempt heated high flow but if no improvement likely will need intubation. Exam Vital Signs (past 8 hours): - 01/02/21 05:39 01/02/21 08:00 01/02/21 09:10 Temperature 98.2 F Pulse Rate 63 60 Respiratory Rate 22 24 Blood Pressure 159/73 H 151/72 H Pulse Oximetry 90 L 93 88 L 01/02/21 10:20 01/02/21 12:00 Temperature 97.6 F Pulse Rate 92 H 67 Respiratory Rate 25 H Blood Pressure 151/72 H 141/73 H Pulse Oximetry 87 L Fraction of Inspired Oxygen 100.0 SaO2/FiO2 Ratio 227 Oxygen Delivery Method Heated High Flow Oxygen Flow Rate 60 Narrative Exam Narrative: GEN: confused, ill appearing, obese male. CV: regular rate and rhythm, no murmurs PULM: bibasilar rhonchi, L > R. ABD: soft, nontender, nondistended, normal bowel sounds SKIN: intertrigo in skin folds Ext: no edema or joint effusions Objective Labs Result Diagrams: 12/31/20 04:50 01/02/21 05:35 Labs: Laboratory Results - last 24 hr 01/02/21 01/02/21 05:35 09:06 ABG pH 7.48 H ABG pCO2 24.7 L* ABG pO2 44 L* ABG HCO3 18 L ABG Total CO2 19 L ABG O2 Saturation 84 L* ABG Base Excess -5.0 L FiO2 80 Sodium 140 Potassium 4.0 Chloride 113 H Carbon Dioxide 23 BUN 37 H Creatinine 0.66 Estimated GFR > 60.0 BUN/Creatinine Ratio 56.1 H Glucose 127 H Calcium 8.3 L Total Bilirubin 0.4 AST 42 ALT 46 Alkaline Phosphatase 82 Total Protein 5.9 L Albumin 2.9 L Globulin 3.0 Albumin/Globulin Ratio 1.0 [facility] Medical History (Updated 01/01/21 @ 16:05 by Romeo Linn DO) HLD (hyperlipidemia) HTN (hypertension) Type 2 diabetes mellitus Social History household members: children Assessment & Plan Assessment & Plan narrative: 1. COVID-19 pneumonia with acute hypoxic respiratory failure -unvaccinated male, COVID positive with bilateral consolidation on outside CT. elevated ESR, CRP, D-dimer. patient presented moderately ill with hypoxia on presentation, cough, profound weakness, and diarrhea as well as noted in acute renal failure -provide supplemental O2, since admission oxygen requirements have been worsening. try and avoid intubation per son, improved temporarily with non-rebreather today. work on sedation given delirium and hopefully will improve oxygenation. If no further improvement, will likely proceed with intubation. Will repeat gas after return to heated high flow. -dexamethasone 6 mg IV q.d. for up to 10 days, monitor blood sugars closely -remdesivir 200 mg x 1 then 100 mg IV q.d. x4 days -baricitinib started 12/31 after advancing to heated high flow. -telemetry monitoring -full code, okay with intubation if necessary per discussions initially, however does not feel that he would want tracheostomy. Advised him to further think on whether intubation is something he really wants, however unable to further discuss today given confusion. Discussed with son, wishes to avoid intubation if at all possible, but agreeable to intubation. 2. Acute metabolic encephalopathy, -patient presented with confusion in setting of hypoxia, NIXON, COVID pneumonia and UTI. Initially improved but worsened today. -worsened today, likely hospital induced delirium and worsening hypoxia. Attempted haldol, ativan without much help. Try fentanyl, may attempt precedex for sedation in hopes to avoid intubation. 3. Urinary tract infection -outside UA with many bacteria and WBC, culture with citrobacter sens. to ceftriaxone. -continue Rocephin 1 g IV q.d. started at outside hospital, duration 7 days 4. Chronic urinary retention with bilateral hydronephrosis on CT -Mendez placed at outside ED, manage Mendez -started tamsulosin 0.4 mg q.d. with attempted trial of Mendez removal in 1-2 weeks 5. 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 and metformin 850 mg t.i.d. -12/29 increased Lantus to 60 units b.i.d. but now with hypoglycemia this AM. Reduced again to 30 BID per knowledge analyst, continued hypoglycemia today. Will change to daily. Given poor PO intake started d5 1/2 NS for IVF today. continued insulin lispro medium dose sliding scale -glucose 300 range on dexamethasone initially, continue insulin dose adjustment as required -holding glimepiride and metformin due to acute renal failure 6. Acute kidney injury, resolved -likely prerenal due to diarrhea associated with COVID, possible obstructive component as well. -serum creatinine 3.2 at outside ED, baseline creatinine appears 1.48 from April 2019, improved to 0.84 now. -patient was aggressively hydrated at outside ED, has not required hydration here. Started today again for low PO intake and hypogylcemia. 7. Hypertension -holding patient's lisinopril and furosemide due to initial NIXON -continue atenolol 25 mg HS 8. History of TIA -continued patient's clopidogrel 75 mg q.d. and atorvastatin 80 mg q.p.m. DVT prophylaxis:? Lovenox, 40 BID for obesity. Code status:? 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 He unfortunately is confused today. Surrogate decision maker: Son, Ranjit Curtis I spent 50 minutes providing critical care management this patient. This excludes time spent in performing separately billed procedures. Time Spent With Patient Critical Care time: I spent a total of [] minutes of critical care time on this patient's care today; this time is exclusive of procedural time.
[2021-01-02] MEDS: fentaNYL 100 MCG/2 ML INJ 50 MCG IV (13:24)
--- NOTE | 2021-01-02 16:40 | PC.NURSE ---
Addendum entered by Corinne Barajas R.N. 01/02/21 18:17: HHF 50L/70% SpO2 95%, Presidex gtt infusing as ordered Original Note: Evening shift note: Pt resting in bed with eyes closed, per report pt was very confused, pulling at lines, removed gown. Dr Linn aware, Presidex ordered but ok to hold until pt wakes up and needs for sedation. Current HHF setting 50L50% with SpO2 of 90%, turned down from 60L/95% for day shift. Mendez catheter draining cloudy, yellow urine. Tele is off due to pt removing constantly, provider aware. Bed low and locked, alarm on for safety, will continue to treat and monitor./
[2021-01-02] MEDS: DEXMEDETOMIDINE HCL 400 MCG in SODIUM CHLORIDE 0.9% 96 ML 5.544 ML IV (17:46)
[2021-01-02] MEDS: INSULIN LISPRO 100 UNIT/ML 3ML VIAL SUBCUT (17:50)
--- NOTE | 2021-01-02 20:43 | P.TELICUIN_ITS ---
Teleintensivist Intervention Date/Time Was camera activated?: Yes Date Patient Seen: 01/02/21 Time Patient Seen: 19:45 Issue(s) Addressed Issue(s): Pain, Agitation, Sedation, Delirium and Resp. Distress/Ventilator management Other:: e-Alert Intervention(s) :: Toxic-metabolic encephalopathy due to worsening acute hypoxic respiratory failure induced by COVID-19 pneumonia as well as a Citrobacter UTI. Dr. Linn's note from earlier today reviewed; Precedex was started during day in an effort to avoid intubation. Upon camera activation, it was infusing at 0.7 mcg/kg/hr. -Increased Precedex to 1.4 mcg/kg/hr as a temporizing measure. -Patient's HFNC currently at 50 L/min @ 95% FiO2. His hypoxic episodes have required high doses of analgosedation that are now impairing his mental status. This combination makes endotracheal intubation necessary. Dr. Campbell spoke to the son who does wish to proceed with intubation. -Post-intubation lung-protective strategy with starting PEEP of 10 cm H20; conventional analgosedation with propofol/fentanyl-->orders placed. I spent a total of 35 minutes of non-continuous critical care time on [facility]; this time is exclusive of all procedural time. This patient was evaluated multiple times via real-time interactive audiovisual telecommunication.
--- NOTE | 2021-01-02 21:15 | DI.RAD.S_ITS ---
PROCEDURE: XR CHEST 1V INDICATIONS: intubation TECHNIQUE: One view of the chest was acquired. COMPARISON: [facility], CR, XR CHEST 1V, 01/01/2021, 6:33. FINDINGS: Surgical changes and devices: There is an endotracheal tube whose tip is barely visible above the level of the thoracic inlet. Nasogastric tube is in place with the tip below the level of the diaphragm in the left upper quadrant. Lungs and pleura: Bilateral multifocal alveolar opacities, most confluent at the lung bases, and hazy opacities throughout the mid lungs bilaterally. No pneumothorax. Mediastinum: The heart size is obscured by dense left base opacity, but likely within normal limits. Normal mediastinal contour. Bones and chest wall: No suspicious bony lesions. Overlying soft tissues appear unremarkable. IMPRESSION: 1. High placement of endotracheal tube. Tube should be inserted 8 cm for optimal placement. Finding discussed with Eliezer, the patient's nurse. 2. Adequate placement of nasogastric tube. 3. Slight worsened appearance of dense bibasilar and midlung multifocal alveolar opacities consistent with pneumonia. Dictated by: Fiona Thao M.D. on 01/02/2021 at 23:13 Approved by: Fiona Thao M.D. on 01/02/2021 at 23:22
[2021-01-02] MEDS: KETAMINE 500 MG/5 ML INJ (21:22)
[2021-01-02] MEDS: ROCURONIUM 50 MG/5 ML INJ 110 MG IV (21:25)
[2021-01-02] MEDS: DEXMEDETOMIDINE HCL 400 MCG in SODIUM CHLORIDE 0.9% 96 ML 33.264 ML IV (21:50)
[2021-01-02] MEDS: propofoL 1,000 MG/100 ML VIAL 16.5 MG IV (21:54)
[2021-01-02] MEDS: fentaNYL 1,000 MCG in DEXTROSE 5% IN WATER 230 ML 12.5 ML IV (22:45)
[2021-01-02 23:24] LABS: PO2 ABG 93 mmHg (80-100); pH ABG 7.34 (7.35-7.45)
[2021-01-02 23:25] LABS: Fractionated Inspired Oxygen 100; HCO3 ABG 20 mmol/L (22-26); Oxygen Saturation ABG 97 % (95-100); TCO2 ABG 21 mmol/L (21-31)
[2021-01-02] MEDS: cefTRIAXone 2,000 MG in SODIUM CHLORIDE 0.9% 100 ML IV (23:30)
[2021-01-02] MEDS: CHLORHEXIDINE GLUCONATE 15 ML CUP PO (23:30)
[2021-01-03] VITALS (100 sets, daily range): BP systolic 95–170; BP diastolic 52–72; PULSE 34–84; RESP 0–25; TEMP 36.1–36.8; O2SAT 84–100
[2021-01-03] MEDS: INSULIN LISPRO 100 UNIT/ML 3ML VIAL SUBCUT ×4 (00:24→18:30)
[2021-01-03] MEDS: INSULIN GLARGINE 100 UNIT/ML 3ML PEN 30 UNIT SUBCUT ×3 (00:25→21:36)
[2021-01-03] MEDS: SODIUM CHLORIDE 0.9% FLUSH 10 ML IV (00:25)
[2021-01-03] MEDS: ATORVASTATIN 20 MG TABLET 80 MG PO ×2 (00:25→21:34)
[2021-01-03] MEDS: FAMOTIDINE 20 MG/2 ML VIAL IV ×3 (00:25→21:33)
--- NOTE | 2021-01-03 01:50 | PC.NURSE ---
01/02/20211929 Patient very agitated, restless, calling out. Precedex at 0.2 Had to hold patient's hands for roughly 15 minutes to prevent lines from being d/c'd and to reorientate. Precedex gradually increased to 0.7 Dr. Barillas summoned and permission to increase Precedex to 1.4 received. FiO2 increased to 100% due to sustained saturations in the 80's while agitated. Decision made on rounds to intubate. Dr. Mojica to intubate and requests Ketamine 1mg/kg, Rocuronium 1Mg/kg and standby Epinephrine 1mg/10ml. Intubatation at 2127 to 20cm. Vent settings 22/440/PEEP10/100% per Dr. Barillas. Propofol and Fentanyl started and Precedex weaned off per Dr. Barillas. ET advanced 2cm after xray. After subsequent xray, ET advanced by RT to 28cm per Dr. Thao.
--- NOTE | 2021-01-03 02:04 | PC.NURSE ---
Addendum entered by Poli Anthony R.N. 01/03/21 07:23: 01/03/2021 0705 Propofol increased to 30 mcg/kg/min per agitation Addendum entered by Poli Anthony R.N. 01/03/21 06:12: 0610 Propofol bottle and tubing changed. Rate lowered to 10 mcg/kg/min Addendum entered by Poli Anthony R.N. 01/03/21 03:35: 0330 15 mcg/kg/min Addendum entered by Poli Anthony R.N. 01/03/21 02:33: 0233 20 mcg/kg/min Original Note: Propofol gtts documentation (due to snafu in Molecular Imaging software that could not be resolved by [facility] x 2 phone calls) 01/02/2021 2154 25 mcg/kg/min 01/03/2021 0005 15 mcg/kg/min 0025 5 mcg/kg/min
[2021-01-03 05:01] LABS: Add Manual Diff / Slide Review NO; Basophils Absolute Auto 0 /uL (0-100); Basophils Percent Auto 0.4 % (0-2); Eosinophils Absolute Auto 0 /uL (0-450); Eosinophils Percent Auto 0.1 % (2-4); Hematocrit 36.2 % (41-53); Hemoglobin 11.8 g/dL (13.5-17.5); Lymphocytes Absolute Auto 900 /uL (1100-4500); Lymphocytes Percent Auto 13.9 % (25-40); Mean Corpuscular HGB Conc 32.6 % (30-36); Mean Corpuscular Hemoglobin 27.9 PG (26-34); Mean Corpuscular Volume 85.5 fL (80-100); Monocytes Absolute Auto 700 /uL (0-900); Monocytes Percent Auto 10.5 % (3-14); Neutrophils Absolute Auto 5000 /uL (1500-7000); Neutrophils Percent Auto 75.1 % (50-75); Platelet Count 205 X10^3/uL (150-400); Red Blood Cell Count 4.23 X10^6/uL (4.5-5.9); Red Cell Distribution Width 15.9 % (11.6-14.8); White Blood Cell Count 6.7 X10^3/uL (4.5-11.0)
[2021-01-03 05:19] LABS: Alanine Aminotransferase 39 IU/L (<50); Albumin 2.7 g/dL (3.5-5.0); Alkaline Phosphatase 88 U/L (38-126); Aspartate Aminotransferase 30 IU/L (17-59); Bilirubin Total 0.4 mg/dL (0.2-1.3); Bilirubin Unconjugated 0.2 mg/dL (0.0-1.1); Globulin 2.8 g/dL (1.7-4.1); HEMOLYSIS 18 (0-50); Total Protein 5.5 g/dL (6.3-8.2)
[2021-01-03 05:20] LABS: Potassium 4.2 mmol/L (3.4-5.1)
[2021-01-03 05:21] LABS: Alanine Aminotransferase 40 IU/L (<50); Albumin 2.7 g/dL (3.5-5.0); Alkaline Phosphatase 88 U/L (38-126); Aspartate Aminotransferase 31 IU/L (17-59); BUN Creatinine Ratio 44.1 (6-22); Bilirubin Total 0.3 mg/dL (0.2-1.3); Blood Urea Nitrogen 30 mg/dL (9-20); Calcium 7.7 mg/dL (8.4-10.2); Carbon Dioxide 20 mmol/L (22-32); Chloride 112 mmol/L (98-107); Estimated Glomerular Filt Rate > 60.0 mL/min (>60); Globulin 2.8 g/dL (1.7-4.1); Glucose 279 mg/dL (80-110); HEMOLYSIS 20 (0-50); Sodium 136 mmol/L (137-145); Total Protein 5.5 g/dL (6.3-8.2)
[2021-01-03] MEDS: CHLORHEXIDINE GLUCONATE 15 ML CUP PO ×3 (05:32→18:29)
[2021-01-03] MEDS: ENOXAPARIN 40 MG/0.4 ML SYRINGE SUBCUT ×2 (08:49→21:33)
[2021-01-03] MEDS: DEXAMETHASONE 10 MG/ML VIAL 6 MG IV (08:49)
[2021-01-03] MEDS: DEXTROSE 5%-0.45% NS 1,000 ML 100 ML IV (08:50)
[2021-01-03] MEDS: propofoL 1,000 MG/100 ML VIAL 20.79 MG IV (08:50)
[2021-01-03] MEDS: BARICITINIB 2 MG TABLET 4 MG PO (09:00)
[2021-01-03] MEDS: TAMSULOSIN 0.4 MG CAPSULE PO (09:00)
--- NOTE | 2021-01-03 11:13 | DIET.CONS ---
Dietary Consultation Note Admission Date: 12/28/2020 16:41 Assessment: 80y M admitted c covid19 pneumonia requiring intubation on 01/02 referred to nutrition for tube feeding reccs secondary to NPO on vent status. Pt has prior medical hx of: morbid obesity (BMI 36.9), DM2, HTN, HLD and takes 850mg metformin tid, 68U humulin bid, and 4mg glimepiride bid. Note: pt with poorly controlled DM as evidenced by A1c 10.7 Pt with elevated BGs in hospital worsened by Decadron therapy with this am BG 279. Ht: 177.8 cm Wt: 116.7 kg BMI: 35.2 IBW: 73kg Last BM: 01/02/21 (01/02/21 06:29) MNA: 10 Jack Score: 14 Nutrition Percent Meal Consumed 0% 01/02/21 14:00 Percent Meal Consumed 0% 01/02/21 08:00 Percent Meal Consumed 50% 01/01/21 18:16 Percent Meal Consumed 10 01/01/21 15:00 Percent Meal Consumed 100% 01/01/21 12:26 Labs: A1c 10.7 H, BG 85-279 Nutrition Dx: inadequate protein calorie intake r/t inability to consume POs aeb pt on ventilator and NPO, pt c covid19 pneumonia. Intervention: 1. Recc initiating continuous tube feeding via OG tube with Pivot 1.5 starting at 20mL/h increasing by 10mL q4h as tolerated up to goal of 45mL/h. Goal formula rate provides 1620kcals (23kcal/kg IBW), 101g PRO (1.4g/kg IBW), 186g CHO, and 800mL free water. Per hospitalist requests free fluid be delivered by TF rather than IVF. Pt requires 2,400mL free water flushes equating to 350mL q4h. 2. HOB elevated during continuous TF. EER: 1620kcal (22kcal/kg IBW per obese covid), 101g PRO (1.4g/kg IBW per obese covid), 3,200 mL free water Monitoring/Evaluation: TF tolerance, rate advancement, associated labs
--- NOTE | 2021-01-03 12:15 | PM.PROC.1 ---
Procedures Date/Time Date of procedure: 01/03/21 Time of procedure: 12:15 Arterial Line Time out performed: Yes Size (Gauge): 20 Technique used: guide wire technique Post-Procedure: line sutured into place and dry sterile dressing placed Patient tolerated procedure: Well Complications: none Site: right and radial
--- NOTE | 2021-01-03 12:47 | PM.PN.1 ---
Subjective Subjective Date Patient Seen: 01/03/21 Time Patient Seen: 12:47 Interval history: Patient worsened overnight, was intubated. Arterial line placed today. Oxygen now down to 60% FiO2 today, remains on fentanyl and propofol. bradycardia improves with decreased sedation but then patient fights ventilatory. Unable to participate in subjective exam. Blood sugars improved yesterday, but rising today. Exam Vital Signs (past 8 hours): - 01/03/21 05:00 01/03/21 06:00 01/03/21 07:00 Temperature 97.2 F L 97.0 F L 97.0 F L Pulse Rate 36 L 35 L 57 L Respiratory Rate 22 22 22 Blood Pressure 111/64 108/60 Pulse Oximetry 100 100 98 01/03/21 07:01 01/03/21 07:05 01/03/21 08:00 Temperature 97.0 F L 97.0 F L 97.0 F L Pulse Rate 48 L 50 L 39 L Respiratory Rate 22 19 21 Blood Pressure 128/70 100/59 L Pulse Oximetry 98 99 96 01/03/21 08:05 01/03/21 09:00 01/03/21 09:05 Temperature 97.0 F L 97.2 F L 97.2 F L Pulse Rate 38 L 36 L 37 L Respiratory Rate 22 22 22 Blood Pressure 98/55 L Pulse Oximetry 96 97 97 01/03/21 10:00 01/03/21 10:05 Temperature 97.0 F L 97.0 F L Pulse Rate 38 L 38 L Respiratory Rate 22 22 Blood Pressure 96/52 L Pulse Oximetry 98 98 Fraction of Inspired Oxygen 70 SaO2/FiO2 Ratio 227 Oxygen Delivery Method Mechanical Ventilation Oxygen Flow Rate 55 Narrative Exam Narrative: GEN: obese male, intubated and sedated. CV: regular rate and rhythm, no murmurs PULM: bibasilar rhonchi, L > R. ABD: soft, non-distended SKIN: intertrigo in skin folds Ext: no edema or joint effusions Objective Labs Result Diagrams: 01/03/21 04:50 01/03/21 04:50 Labs: Laboratory Results - last 24 hr 01/02/21 01/03/21 01/03/21 23:00 04:50 04:50 WBC 6.7 RBC 4.23 L Hgb 11.8 L Hct 36.2 L MCV 85.5 MCH 27.9 MCHC 32.6 RDW 15.9 H Plt Count 205 Neut % (Auto) 75.1 H Lymph % (Auto) 13.9 L [place] % (Auto) 10.5 Eos % (Auto) 0.1 L Baso % (Auto) 0.4 Neut # (Auto) 5000 Lymph # (Auto) 900 L [place] # (Auto) 700 Eos # (Auto) 0 Baso # (Auto) 0 ABG pH 7.34 L ABG pCO2 37.0 ABG pO2 93 ABG HCO3 20 L ABG Total CO2 21 ABG O2 Saturation 97 ABG Base Excess -6.0 L FiO2 100 Sodium 136 L Potassium 4.2 Chloride 112 H Carbon Dioxide 20 L BUN 30 H Creatinine 0.68 Estimated GFR > 60.0 BUN/Creatinine Ratio 44.1 H Glucose 279 H D Calcium 7.7 L Magnesium Total Bilirubin 0.3 Conjugated Bilirubin Unconjugated Bilirubin AST 31 ALT 40 Alkaline Phosphatase 88 Total Protein 5.5 L Albumin 2.7 L Globulin 2.8 Albumin/Globulin Ratio 1.0 01/03/21 04:50 WBC RBC Hgb Hct MCV MCH MCHC RDW Plt Count Neut % (Auto) Lymph % (Auto) [place] % (Auto) Eos % (Auto) Baso % (Auto) Neut # (Auto) Lymph # (Auto) [place] # (Auto) Eos # (Auto) Baso # (Auto) ABG pH ABG pCO2 ABG pO2 ABG HCO3 ABG Total CO2 ABG O2 Saturation ABG Base Excess FiO2 Sodium Potassium Chloride Carbon Dioxide BUN Creatinine Estimated GFR BUN/Creatinine Ratio Glucose Calcium Magnesium 2.0 Total Bilirubin 0.4 Conjugated Bilirubin 0.0 Unconjugated Bilirubin 0.2 AST 30 ALT 39 Alkaline Phosphatase 88 Total Protein 5.5 L Albumin 2.7 L Globulin 2.8 Albumin/Globulin Ratio 1.0 [facility] Medical History (Updated 01/01/21 @ 16:05 by Romeo Linn DO) HLD (hyperlipidemia) HTN (hypertension) Type 2 diabetes mellitus Social History household members: children Assessment & Plan Assessment & Plan narrative: 1. COVID-19 pneumonia with acute hypoxic respiratory failure -unvaccinated male, COVID positive with bilateral consolidation on outside CT. elevated ESR, CRP, D-dimer. patient presented moderately ill with hypoxia on presentation, cough, profound weakness, and diarrhea as well as noted in acute renal failure -provide supplemental O2, since admission oxygen requirements have been worsening. was advanced slowly, attempted precedex to avoid intubation, however ultimately worsened to point of needing intubation late on 01/02. Continue mechanical ventilation, appreciate tele-captain airline pilot assistance. -dexamethasone 6 mg IV q.d. for up to 10 days, monitor blood sugars closely -remdesivir 200 mg x 1 then 100 mg IV q.d. x4 days. Now complete -baricitinib started 12/31 after advancing to heated high flow. Continue x14 days. -telemetry monitoring -full code, okay with intubation if necessary per discussions initially, however does not feel that he would want tracheostomy. Ultimately became confused before patient able to further clarify so will proceed as full code. Surrogate decision maker is the patient's son. 2. Acute metabolic encephalopathy, -patient presented with confusion in setting of hypoxia, NIXON, COVID pneumonia and UTI. Initially improved but worsened on 01/02. -worsening likely hospital induced delirium and worsening hypoxia. Attempted haldol, ativan without much help. Tried fentanyl, and precedex for sedation in hopes to avoid intubation however these were unsuccessful and patient continued to decline. 3. Urinary tract infection -outside UA with many bacteria and WBC, culture with citrobacter sens. to ceftriaxone. -continue Rocephin 1 g IV q.d. started at outside hospital, duration 7 days 4. Chronic urinary retention with bilateral hydronephrosis on CT -Mendez placed at outside ED, manage Mendez -started tamsulosin 0.4 mg q.d. with attempted trial of Mendez removal in 1-2 weeks 5. 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 and metformin 850 mg t.i.d. -12/29 increased Lantus to 60 units b.i.d. but then with hypoglycemia. Now 30 U BID. Sugars increasing throughout the day today, was on D5 1/2 NS for hypoglycemia yesterday. Will stop with ability to give tube feeds. continue to follow and adjust therapies. Consider insulin infusion. -holding glimepiride and metformin due to acute renal failure initially 6. Acute kidney injury, resolved -likely prerenal due to diarrhea associated with COVID, possible obstructive component as well. -serum creatinine 3.2 at outside ED, baseline creatinine appears 1.48 from April 2019, improved to 0.68 now. -can stop IV fluids with tube feedings to start today 7. Hypertension -holding patient's lisinopril and furosemide due to initial NIXON -holding medications now while sedated. 8. History of TIA -continued patient's clopidogrel 75 mg q.d. and atorvastatin 80 mg q.p.m. Plavix recommended to be held by tele-captain airline pilot while on BID lovenox. Lines: R radial arterial line, placed 01/03. Midline L arm. NG tube. GI ppx: Famotidine 20 mg IV BID DVT prophylaxis:? Lovenox, 40 BID for obesity. Code status:? Full code per wishes expressed by patient at time of admission, rediscussed day prior to intubation and he remained full code but is less sure than initially after discussions on possible tracheostomy or assisted intubation. Surrogate decision maker: SonRanjit I spent 35 minutes providing critical care management this patient.? This excludes time spent in performing separately billed procedures. Time Spent With Patient Critical Care time: I spent a total of [] minutes of critical care time on this patient's care today; this time is exclusive of procedural time.
[2021-01-03] MEDS: propofoL 1,000 MG/100 ML VIAL 17.325 MG IV ×2 (13:12→18:55)
--- NOTE | 2021-01-03 15:58 | DI.RAD.S_ITS ---
PROCEDURE: XR CHEST 1V INDICATIONS: reassess ETT TECHNIQUE: One view of the chest was acquired. COMPARISON: [facility], CR, XR CHEST 1V, 01/01/2021, 6:33. [facility], CR, XR CHEST 1V, 01/02/2021, 22:24. FINDINGS: Surgical changes and devices: Endotracheal tube in the midtrachea. Enteric tube coursing into the stomach. Catheter at the left axilla, unchanged. Lungs and pleura: Bilateral patchy airspace opacity worse in the left lung. Overall this is similar to the prior exams. No pleural effusions or pneumothorax. Mediastinum: Mediastinal contours appear unchanged. Heart size is partially obscured but appears within normal limits. Bones and chest wall: No suspicious bony lesions. Overlying soft tissues appear unremarkable. IMPRESSION: 1. Endotracheal tube in the midtrachea in satisfactory position. 2. Catheter projecting over the left axilla is unchanged. 3. Bilateral patchy airspace opacity. Suspect multifocal pneumonia. COVID-19 could have this appearance. Dictated by: Humza Wyman M.D. on 01/03/2021 at 16:21 Approved by: Humza Wyman M.D. on 01/03/2021 at 16:24
[2021-01-03] MEDS: MIDAZOLAM 50 MG in DEXTROSE 5% IN WATER 240 ML 11.67 ML IV (21:00)
[2021-01-03 21:01] LABS: Fractionated Inspired Oxygen 100; HCO3 ABG 20 mmol/L (22-26); Oxygen Saturation ABG 99 % (95-100); PCO2 ABG 36.4 mmHg (35-45); PO2 ABG 171 mmHg (80-100); TCO2 ABG 21 mmol/L (21-31)
[2021-01-03] MEDS: DOPAMINE HCL IN DEXTROSE 5 % 400 MG/250 ML PLAST..BAG 17.4 MG IV (21:01)
[2021-01-03 21:02] LABS: pH ABG 7.34 (7.35-7.45)
[2021-01-03] MEDS: cefTRIAXone 2,000 MG in SODIUM CHLORIDE 0.9% 100 ML 200 ML IV (21:32)
[2021-01-03] MEDS: propofoL 1,000 MG/100 ML VIAL 27.72 MG IV (21:43)
--- NOTE | 2021-01-03 21:48 | PM.ICURNDS ---
- :: This patient was seen via real time interactive two-way audiovisual telecommunication. Note: Patient desaturated to 80's with vent bucking while on PEEP of 10 and FIO2 of 25%. Patient already on Propofol drip at 50 mcg/kg/min and fentanyl drip at 0.7 mcg/kg/min so will add versed drip for increased sedation for vent synchrony. After patient adequately sedated, Pox was 84 on Foi2 of 35% so FIo2 increased to 60%. Also started Dopamine drip for low HR and borderline low BP.
[2021-01-03] MEDS: fentaNYL 1,000 MCG in DEXTROSE 5% IN WATER 230 ML 28.875 ML IV (22:22)
--- NOTE | 2021-01-03 22:45 | PC.NURSE ---
Addendum entered by Enriqueta Cadena R.N. 01/03/21 23:11: HR now steady in 60's, BP MAP >65, did not have to hang levophed. Patient is sedated and no issues with the vent. FiO2 back to 60% after being bumped to 100% and an ABG drawn resulted with O2 elevated. See MAR for drip titrations. Original Note: Around 1900 patient began to goode vent, HR and BP became elevated, patient was not responsive to direction but was restless and shaking. Increased propofol to max, patient became more sedate and stopped bucking vent but BP and HR dropping quickly. Consulted teleICU Dr. King for increased sedation needs and BP/HR. Dr. King ordered a 50mcg bolus of fentanyl, versed drip, and dopamine. Levophed ordered on standby in case of BP dropping MAP<65.
[2021-01-04] VITALS (65 sets, daily range): BP systolic 91–182; BP diastolic 43–77; PULSE 40–116; RESP 19–24; TEMP 36.3–37.4; O2SAT 87–97
[2021-01-04] MEDS: INSULIN LISPRO 100 UNIT/ML 3ML VIAL SUBCUT ×4 (00:08→18:45)
[2021-01-04] MEDS: CHLORHEXIDINE GLUCONATE 15 ML CUP PO ×4 (00:10→17:42)
[2021-01-04] MEDS: propofoL 1,000 MG/100 ML VIAL 13.86 MG IV ×2 (02:09→12:33)
[2021-01-04 05:13] LABS: Add Manual Diff / Slide Review NO; Basophils Absolute Auto 200 /uL (0-100); Basophils Percent Auto 1.9 % (0-2); Eosinophils Absolute Auto 0 /uL (0-450); Eosinophils Percent Auto 0.1 % (2-4); Hematocrit 37.5 % (41-53); Hemoglobin 11.9 g/dL (13.5-17.5); Lymphocytes Absolute Auto 1100 /uL (1100-4500); Lymphocytes Percent Auto 12.1 % (25-40); Mean Corpuscular HGB Conc 31.8 % (30-36); Mean Corpuscular Hemoglobin 27.3 PG (26-34); Mean Corpuscular Volume 85.8 fL (80-100); Monocytes Absolute Auto 700 /uL (0-900); Monocytes Percent Auto 7.8 % (3-14); Neutrophils Absolute Auto 7000 /uL (1500-7000); Neutrophils Percent Auto 78.1 % (50-75); Platelet Count 280 X10^3/uL (150-400); Red Blood Cell Count 4.36 X10^6/uL (4.5-5.9); Red Cell Distribution Width 15.9 % (11.6-14.8)
[2021-01-04 05:26] LABS: Alanine Aminotransferase 44 IU/L (<50); Albumin 2.8 g/dL (3.5-5.0); Alkaline Phosphatase 98 U/L (38-126); Aspartate Aminotransferase 31 IU/L (17-59); Bilirubin Total 0.2 mg/dL (0.2-1.3); Bilirubin Unconjugated 0.1 mg/dL (0.0-1.1); Globulin 2.9 g/dL (1.7-4.1); HEMOLYSIS 16 (0-50); Magnesium 2.1 mg/dL (1.6-2.3); Total Protein 5.7 g/dL (6.3-8.2)
--- NOTE | 2021-01-04 06:48 | PC.NURSE ---
Rail Washer Note-Patient is on ventilator, no change in settings-FIO2 50%, PEEP 10, TV 440, RR 22, SpO2 90-97%, lung sounds clearing. Sedated on Versed 0.02mcg/kg/min, Fentanyl at 1mcg/kg/min, propofol currently at 15mcg/min, titrating down as tolerating, and dopamine at 4mcg/min to keep HR >50, art-line patent correlates with NBP, see vital trends. Tube feeding residuals 200ml, 180ml, then 30ml, current rate is 40ml/hr [id number] water flush.
[2021-01-04] MEDS: fentaNYL 1,000 MCG in DEXTROSE 5% IN WATER 230 ML 28.875 ML IV (07:30)
--- NOTE | 2021-01-04 08:00 | DI.RAD.S_ITS ---
PROCEDURE: XR CHEST 1V INDICATIONS: intubation TECHNIQUE: One view of the chest was acquired. COMPARISON: [facility], CR, XR CHEST 1V, 01/03/2021, 16:03. [facility], CR, XR CHEST 1V, 01/02/2021, 22:24. FINDINGS: Surgical changes and devices: Endotracheal tube in the midtrachea. Enteric tube coursing into the stomach. Catheter at the left axilla. Tubes and lines are unchanged in appearance. Lungs and pleura: Extensive bilateral patchy airspace opacity is not significantly changed. There is silhouetting at the left hemidiaphragm. No pleural effusions or pneumothorax. Mediastinum: Mediastinal contours appear normal. Heart size is normal. Bones and chest wall: No suspicious bony lesions. Overlying soft tissues appear unremarkable. IMPRESSION: 1. Tubes and lines are unchanged. Endotracheal tube in the midtrachea. Enteric tube coursing into the stomach. Left axillary catheter. 2. Similar extensive bilateral patchy airspace opacity. Suspect multifocal pneumonia. Dictated by: Humza Wyman M.D. on 01/04/2021 at 8:35 Approved by: Humza Wyman M.D. on 01/04/2021 at 8:37
--- NOTE | 2021-01-04 10:07 | DIET.PN1 ---
Addendum entered by Natalee Kraft 01/04/21 14:02: Tube Feed provides 186g carbohydrates per day when running at goal rate 45mL/h. Original Note: Dietary Progress Note Assessment: Dietary Consultation Note Admission Date: 12/28/2020 16:41 RD Note: Pt tolerating TF at 40mL/h with low/no residuals. BG remain high 357 this am. Ht: 177.8 cm Wt: 116.7 kg BMI: 35.2 IBW: 73kg Last BM: 01/02/21 (01/02/21 06:29) MNA: 10 Jack Score: 14 Labs: A1c 10.7 H, BG 85-279 Nutrition Dx: inadequate protein calorie intake r/t inability to consume POs aeb pt on ventilator and NPO, pt c covid19 pneumonia. Intervention: 1. Continue TF at goal rate. EER: 1620kcal (22kcal/kg IBW per obese covid), 101g PRO (1.4g/kg IBW per obese covid), 3,200 mL free water Monitoring/Evaluation: TF tolerance, rate advancement, associated labs
[2021-01-04] MEDS: ENOXAPARIN 40 MG/0.4 ML SYRINGE SUBCUT ×2 (10:37→21:14)
[2021-01-04] MEDS: FAMOTIDINE 20 MG/2 ML VIAL IV ×2 (10:38→21:15)
[2021-01-04] MEDS: DEXAMETHASONE 10 MG/ML VIAL 6 MG IV (10:38)
[2021-01-04] MEDS: BARICITINIB 2 MG TABLET 4 MG PO (10:38)
[2021-01-04] MEDS: TAMSULOSIN 0.4 MG CAPSULE PO (10:39)
[2021-01-04] MEDS: INSULIN GLARGINE 100 UNIT/ML 3ML PEN 30 UNIT SUBCUT (10:45)
--- NOTE | 2021-01-04 11:25 | P.PN_ITS ---
Subjective Subjective Date Patient Seen: 01/04/21 Time Patient Seen: 11:25 Interval history: Oxygen now down to 50% FiO2 today, desats when arousable, when sedated O2 in low 90s. remains on fentanyl and propofol. overnight was put on versed for vent synchrony and dopamine for bradycardia. bradycardia improved today, in 60s - 70s today. dopamine and versed stopped. Unable to participate in subjective exam. Blood sugars improved yesterday, but rising today. Slightly increased brown secretions today, sputum culture ordered. Exam Vital Signs (past 8 hours): - 01/04/21 03:30 01/04/21 04:00 01/04/21 04:05 Temperature 98.4 F 98.4 F 98.4 F Pulse Rate 55 L 55 L Respiratory Rate 22 22 Blood Pressure 126/58 L 125/60 Pulse Oximetry 96 95 01/04/21 04:30 01/04/21 05:00 01/04/21 05:30 Temperature 98.6 F 98.6 F 98.6 F Pulse Rate 63 92 H 62 Respiratory Rate 22 19 22 Blood Pressure 141/61 H 123/60 105/57 L Pulse Oximetry 96 93 89 L 01/04/21 05:45 01/04/21 06:00 01/04/21 06:30 Temperature 98.6 F 98.6 F 98.8 F Pulse Rate 72 67 62 Respiratory Rate 19 22 22 Blood Pressure 140/65 129/58 L 129/60 Pulse Oximetry 93 91 91 01/04/21 08:00 Temperature Pulse Rate 62 Respiratory Rate 22 Blood Pressure 129/53 L Pulse Oximetry 92 Fraction of Inspired Oxygen 50 SaO2/FiO2 Ratio 227 Oxygen Delivery Method Mechanical Ventilation Oxygen Flow Rate 55 Narrative Exam Narrative: GEN: obese male, intubated and sedated. HEENT: MMM, OG tube in place. CV: regular rate and rhythm, no murmurs PULM: bibasilar rhonchi, L > R. ABD: soft, non-distended SKIN: intertrigo in skin folds Ext: no edema or joint effusions Objective Labs Result Diagrams: 01/04/21 05:00 01/03/21 04:50 Labs: Laboratory Results - last 24 hr 01/03/21 01/04/21 01/04/21 20:48 05:00 05:00 WBC 9.0 RBC 4.36 L Hgb 11.9 L Hct 37.5 L MCV 85.8 MCH 27.3 MCHC 31.8 RDW 15.9 H Plt Count 280 Neut % (Auto) 78.1 H Lymph % (Auto) 12.1 L [place] % (Auto) 7.8 Eos % (Auto) 0.1 L Baso % (Auto) 1.9 Neut # (Auto) 7000 Lymph # (Auto) 1100 Fisher # (Auto) 700 Eos # (Auto) 0 Baso # (Auto) 200 H ABG pH 7.34 L ABG pCO2 36.4 ABG pO2 171 H ABG HCO3 20 L ABG Total CO2 21 ABG O2 Saturation 99 ABG Base Excess -6.0 L FiO2 100 Magnesium 2.1 Total Bilirubin 0.2 Conjugated Bilirubin 0.0 Unconjugated Bilirubin 0.1 AST 31 ALT 44 Alkaline Phosphatase 98 Total Protein 5.7 L Albumin 2.8 L Globulin 2.9 Albumin/Globulin Ratio 1.0 [facility] Medical History (Updated 01/01/21 @ 16:05 by Romeo Linn DO) HLD (hyperlipidemia) HTN (hypertension) Type 2 diabetes mellitus Social History household members: children Assessment & Plan Assessment & Plan narrative: 1. COVID-19 pneumonia with acute hypoxic respiratory failure -unvaccinated male, COVID positive with bilateral consolidation on outside CT. elevated ESR, CRP, D-dimer. patient presented moderately ill with hypoxia on presentation, cough, profound weakness, and diarrhea as well as noted in acute renal failure -provide supplemental O2, since admission oxygen requirements were worsening. was advanced slowly, attempted precedex to avoid intubation, however ultimately worsened to point of needing intubation late on 01/02. Continue mechanical ventilation, appreciate tele-roof promenade tile setter assistance. -dexamethasone 6 mg IV q.d. for up to 10 days, monitor blood sugars closely -remdesivir 200 mg x 1 then 100 mg IV q.d. x4 days. Now complete -baricitinib started 12/31 after advancing to heated high flow. Continue x14 days. -telemetry monitoring -full code, okay with intubation if necessary per discussions initially, however did not feel that he would want tracheostomy. Ultimately became confused before patient able to further clarify so will proceed as full code. Surrogate decision maker is the patient's son. -continue sedation with propfol and fentanyl, when waking he desaturates. PO2 improved on ABG. continue to wean as tolerated. 2. Acute metabolic encephalopathy, -patient presented with confusion in setting of hypoxia, NIXON, COVID pneumonia and UTI. Initially improved but worsened on 01/02. -worsening likely hospital induced delirium and worsening hypoxia. Attempted haldol, ativan without much help. Tried fentanyl, and precedex for sedation in hopes to avoid intubation however these were unsuccessful and patient continued to decline. 3. Urinary tract infection -outside UA with many bacteria and WBC, culture with citrobacter sens. to ceftriaxone. -continue Rocephin 1 g IV q.d. started at outside hospital, duration 7 days 4. Chronic urinary retention with bilateral hydronephrosis on CT -Mendez placed at outside ED, manage Mendez -started tamsulosin 0.4 mg q.d. with attempted trial of Mendez removal in 1-2 weeks 5. 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 and metformin 850 mg t.i.d. -12/29 increased Lantus to 60 units b.i.d. but then with hypoglycemia. Now 30 U BID. Sugars increasing throughout the day today, was on D5 1/2 NS for hypoglycemia yesterday. Will stop with ability to give tube feeds. continue to follow and adjust therapies. Consider insulin infusion. -holding glimepiride and metformin due to acute renal failure initially -01/04 - increased insulin to 40 U BID from 30 for continued high blood sugars. 6. Acute kidney injury, resolved -likely prerenal due to diarrhea associated with COVID, possible obstructive component as well. -serum creatinine 3.2 at outside ED, baseline creatinine appears 1.48 from April 2019, improved to 0.68 now. -can stop IV fluids with tube feedings to start today 7. Hypertension -holding patient's lisinopril and furosemide due to initial NIXON -holding medications now while sedated. 8. History of TIA -continued patient's clopidogrel 75 mg q.d. and atorvastatin 80 mg q.p.m. Plavix recommended to be held by tele-roof promenade tile setter while on BID lovenox. Lines: R radial arterial line, placed 01/03. Midline L arm. OG tube. GI ppx: Famotidine 20 mg IV BID DVT prophylaxis:? Lovenox, 40 BID for obesity. Code status:? Full code per wishes expressed by patient at time of admission, rediscussed day prior to intubation and he remained full code but is less sure than initially after discussions on possible tracheostomy or petroleum terminal plant operator intubatio n. Surrogate decision maker: SonRanjit I spent 35 minutes providing critical care management this patient.? This excludes time spent in performing separately billed procedures. Time Spent With Patient Critical Care time: I spent a total of [] minutes of critical care time on this patient's care today; this time is exclusive of procedural time.
[2021-01-04 11:42] LABS: BUN Creatinine Ratio 44.2 (6-22); Blood Urea Nitrogen 34 mg/dL (9-20); Calcium 7.8 mg/dL (8.4-10.2); Carbon Dioxide 20 mmol/L (22-32); Chloride 110 mmol/L (98-107); Estimated Glomerular Filt Rate > 60.0 mL/min (>60); Glucose 364 mg/dL (80-110); HEMOLYSIS 19 (0-50); Potassium 4.2 mmol/L (3.4-5.1); Sodium 135 mmol/L (137-145)
[2021-01-04] MEDS: ACETAMINOPHEN 325 MG TABLET 650 MG PO (12:29)
--- NOTE | 2021-01-04 14:10 | CM.DPC ---
DCP continued: CM not able to meet with patient or call due to the patient having covid and being intubated. informed CM during AM rounds that patient is doing better and my start weaning off of oxygen in the next day or so. CM called patients son (DPNINI) [place] discussed patient current position. Patient stated he has been calling twice a day talking with the nurses and keeping updated on his dads condition. CM disscussed possible plans for DC when patient is medically ready for that. Patients son stated that he wants his father to come home with HH because his dad will not want to go to SNF. [place] states pt's spouse at [facility] and they since then does not want to go to any SNF. Son also discussed getting DME like raised toilet seat etc when patient is looking better and has PT recommendations after evaluations when he has improved. Son interested in PP CG list as well for likely terminal block assembler needs as well as HH. Plan Is Home with HH and CG information once he is medically stable and ready for DC. Secondary plan is SNF but not any LCC's due to history. According to Patients son this would be a last resort and states he knows his father would not want to go. HH referral made to [facility] on 12/29 but will need follow up once patient is off Vent and had PT/OT evaluations and needs F2F if going to SNF will need a naval air station jrb Auth started closer to DC. Shital James RNmanager generation
--- NOTE | 2021-01-04 14:35 | PC.NURSE ---
PULLED OUT OGT, USED FOR TUBE FEEDING AND PLACED DOBHOFF ( WEIGHTED/WITH GUIDE WIRE INTACT) TO LEFT NARE- INSERTED TO 70CM MARKING ON TUBE - SECURED WITH PAPER TAPE AND PLACED PT ON HIS RIGHT SIDE ALLOWING FREE FLOW OF TUBE INTO GUT- WILL RECHECK PLACEMENT IN APPROX 1-2 H - TUBE FEEDING ON HOLD DURING THIS TIME AND PT WAS UP TO GOAL RATE OF 45/H PRIOR TO BEING TURNED TO OFF FOR THIS PROCEDURE
[2021-01-04] MEDS: fentaNYL 1,000 MCG in DEXTROSE 5% IN WATER 230 ML 43.313 ML IV ×2 (15:31→20:23)
--- NOTE | 2021-01-04 16:46 | DI.RAD.S_ITS ---
PROCEDURE: XR KUB INDICATIONS: dobhoff placement TECHNIQUE: One view of the abdomen acquired. COMPARISON: None. FINDINGS: Surgical changes and devices: There is a Dobbhoff feeding catheter with the tip in the distal stomach or proximal duodenum. Bowel: Bowel gas pattern is normal. Soft tissues: No suspicious abdominal calcifications. Visualized solid organ contours appear normal in size. Bones: No suspicious bony lesions. IMPRESSION: Dobbhoff catheter tip is in the distal stomach or proximal duodenum. Dictated by: Phoenix Cronin M.D. on 01/04/2021 at 17:07 Approved by: Phoenix Cronin M.D. on 01/04/2021 at 17:14
[2021-01-04 20:28] LABS: Triglycerides 186 mg/dL (35-150)
--- NOTE | 2021-01-04 20:45 | PC.NURSE ---
Report received, care assumed 1530. Pt intubated vent settings per RT. Pt heavily sedated on Propofol 25 mcg/kg/min, but responsive to significant stimuli. Pain control Fentanyl 1.5 mcg/kg/min. Bradycardic 40's and 50's, physician aware. Blood pressure stable with MAP>65. Akanksha placed by day shift, tube feeding held until placement confirmed by KUB. 1900: KUB reading inconclusive as to duodenal placement of feeding tube. Per sadiq Nguyen to start tube feeding. Initial rate of 25ml/hr with 350ml free water flush Q6.
[2021-01-04 20:56] LABS: Fractionated Inspired Oxygen 40; HCO3 ABG 19 mmol/L (22-26); Oxygen Saturation ABG 92 % (95-100); PCO2 ABG 32.6 mmHg (35-45); PO2 ABG 64 mmHg (80-100); TCO2 ABG 20 mmol/L (21-31); pH ABG 7.38 (7.35-7.45)
[2021-01-04] MEDS: INSULIN GLARGINE 100 UNIT/ML 3ML PEN 40 UNIT SUBCUT (21:19)
[2021-01-04] MEDS: propofoL 1,000 MG/100 ML VIAL 17.325 MG IV (21:30)
--- NOTE | 2021-01-04 21:30 | PM.ICURNDS ---
- :: This patient was seen via real time interactive two-way audiovisual telecommunication. Note: Patient was weaned off of Doapmine drip this morning. However tonight HR in the 30's and BP soft (MAP int he 60s) so Dopamine drip restarted. Versed drip weaned off. Patient currently synchronous with vent on fentanyl and propofol drip. Triglycerides a little high at 180. If bradicardia continues to be a problem and TG continues to trend up, consider transitioning from Propofol drip to Versed drip. Patient currently requiring PEEP 10 and FIO2 of 45%. Continue with decardron and barecitinib (pt. had completed course of Remdesivir).
[2021-01-04] MEDS: DOPAMINE HCL IN DEXTROSE 5 % 400 MG/250 ML PLAST..BAG 17.505 MG IV (21:31)
[2021-01-04] MEDS: SODIUM CHLORIDE 0.9% FLUSH 10 ML IV (21:57)
--- NOTE | 2021-01-04 23:03 | PC.NURSE ---
Patient's HR was in 30s, started dopamine drip @ 4mcg/kg/min as ordered by Dr. King for HR less than 50bpm. Patient's HR increased to 60's and BP increased to 190's systolic. Titrated down to 2mcg/kg/min and HR increased to 110's, patient became agitated- grimacing/shaking/moving arms, and desatted to mid 80's. RT at bedside, increased FiO2 to 60%, spO2 now low 90s%. Increased fentanyl to 2 mcg/kg/hr, increased propofol to 30 mcg/kg/min, and turned dopamine off, BP steadily decreased, now 100s/50s. HR steadily decreasing, now low 50's. HE[employer] RECORDS TECHNOLOGY TEACHER Jose Angel updated.
[2021-01-05] VITALS (80 sets, daily range): BP systolic 94–184; BP diastolic 41–78; PULSE 38–111; RESP 20–24; TEMP 36.7–37.4; O2SAT 91–98
[2021-01-05] MEDS: CHLORHEXIDINE GLUCONATE 15 ML CUP PO ×4 (00:55→18:02)
[2021-01-05] MEDS: INSULIN LISPRO 100 UNIT/ML 3ML VIAL SUBCUT ×4 (00:55→18:01)
[2021-01-05] MEDS: fentaNYL 1,000 MCG in DEXTROSE 5% IN WATER 230 ML 43.313 ML IV (03:04)
[2021-01-05] MEDS: propofoL 1,000 MG/100 ML VIAL 17.325 MG IV ×3 (03:05→14:35)
[2021-01-05 05:05] LABS: Add Manual Diff / Slide Review NO; Basophils Absolute Auto 0 /uL (0-100); Basophils Percent Auto 0.2 % (0-2); Eosinophils Absolute Auto 0 /uL (0-450); Hematocrit 37.6 % (41-53); Lymphocytes Absolute Auto 800 /uL (1100-4500); Lymphocytes Percent Auto 9.2 % (25-40); Mean Corpuscular HGB Conc 31.9 % (30-36); Mean Corpuscular Hemoglobin 27.5 PG (26-34); Mean Corpuscular Volume 86.2 fL (80-100); Monocytes Absolute Auto 800 /uL (0-900); Monocytes Percent Auto 8.7 % (3-14); Neutrophils Absolute Auto 7500 /uL (1500-7000); Neutrophils Percent Auto 81.9 % (50-75); Platelet Count 359 X10^3/uL (150-400); Red Blood Cell Count 4.37 X10^6/uL (4.5-5.9); Red Cell Distribution Width 16.4 % (11.6-14.8); White Blood Cell Count 9.2 X10^3/uL (4.5-11.0)
[2021-01-05 05:13] LABS: Alanine Aminotransferase 38 IU/L (<50); Albumin 2.9 g/dL (3.5-5.0); Albumin Globulin Ratio 0.9 (1.0-2.8); Alkaline Phosphatase 102 U/L (38-126); Aspartate Aminotransferase 40 IU/L (17-59); Bilirubin Total 0.3 mg/dL (0.2-1.3); Blood Urea Nitrogen 39 mg/dL (9-20); Calcium 7.6 mg/dL (8.4-10.2); Carbon Dioxide 23 mmol/L (22-32); Chloride 109 mmol/L (98-107); Estimated Glomerular Filt Rate > 60.0 mL/min (>60); Globulin 3.1 g/dL (1.7-4.1); Glucose 404 mg/dL (80-110); HEMOLYSIS 21 (0-50); Potassium 5.1 mmol/L (3.4-5.1); Sodium 135 mmol/L (137-145)
[2021-01-05 05:14] LABS: Magnesium 2.7 mg/dL (1.6-2.3)
--- NOTE | 2021-01-05 05:41 | PC.NURSE ---
0530- EARNESTINE Walter updated on patient Glucose result. This am 404. Glargine adjusted to 50 units Bid and Lispro advanced to High dose sliding scale. Patient at a RASS of -3. Good uop. Will monitor closely.
[2021-01-05 05:48] LABS: Triglycerides 174 mg/dL (35-150)
[2021-01-05] MEDS: fentaNYL 100 MCG/2 ML INJ 41 MCG IV (07:50)
--- NOTE | 2021-01-05 08:00 | DI.RAD.S_ITS ---
PROCEDURE: XR CHEST 1V INDICATIONS: intubation TECHNIQUE: One view of the chest was acquired. COMPARISON: [facility], CR, XR CHEST 1V, 01/04/2021, 5:36. FINDINGS: Surgical changes and devices: Endotracheal tube tip projects approximately 5.4 cm above the theresa. Nasogastric tube extends below the level of the diaphragm with the distal tip excluded off the [id number]. Left axillary catheter is unchanged in positioning. Lungs and pleura: No pneumothorax. Extensive bilateral patchy airspace opacities more pronounced on the left. Accounting for differences in patient positioning and overall lung aeration, findings are not significantly changed. Suspected small bilateral pleural effusions. Mediastinum: Mediastinal contours appear normal. Heart size is normal. Bones and chest wall: No suspicious bony lesions. Overlying soft tissues appear unremarkable. IMPRESSION: 1. Stable positioning of support equipment. 2. Stable cardiopulmonary examination with similar appearance of extensive left greater than right patchy bilateral airspace opacities compatible with multifocal pneumonia. Dictated by: Marlo Myers M.D. on 01/05/2021 at 9:49 Approved by: Marlo Myers M.D. on 01/05/2021 at 9:51
[2021-01-05] MEDS: fentaNYL 1,000 MCG in DEXTROSE 5% IN WATER 230 ML 57.75 ML IV ×3 (08:15→20:47)
[2021-01-05] MEDS: FAMOTIDINE 20 MG/2 ML VIAL IV ×2 (09:26→21:04)
[2021-01-05] MEDS: DEXAMETHASONE 10 MG/ML VIAL 6 MG IV (09:26)
[2021-01-05] MEDS: ENOXAPARIN 40 MG/0.4 ML SYRINGE SUBCUT ×2 (09:27→21:04)
[2021-01-05] MEDS: BARICITINIB 2 MG TABLET 4 MG PO (09:27)
[2021-01-05] MEDS: SODIUM CHLORIDE 0.9% FLUSH 10 ML IV ×2 (09:28→21:04)
[2021-01-05] MEDS: INSULIN GLARGINE 100 UNIT/ML 3ML PEN 50 UNIT SUBCUT (09:32)
--- NOTE | 2021-01-05 12:20 | PM.PN.1 ---
Subjective Subjective Date Patient Seen: 01/05/21 Time Patient Seen: 08:00 Interval history: Yesterday during the day patient was weaned off versed and dopamine was stopped. However, patient did have some slight agitation and propofol was increased. He became bradycardic and his dopaine was restarted again last night. His vent setting have remained stable. He is currently sedated, synchronous on the ventilator. This morning propofol weaned down slightly and patient remains calm. He remains bradcyardic on the dopamine drop with HR 55-65. Exam Vital Signs (past 8 hours): - 01/05/21 04:30 01/05/21 04:45 01/05/21 05:00 Temperature 98.8 F 99.0 F 99.0 F Pulse Rate 106 H 105 H 111 H Respiratory Rate 22 21 20 Blood Pressure 122/58 L 121/60 121/58 L Pulse Oximetry 92 91 94 01/05/21 05:06 01/05/21 05:15 01/05/21 05:30 Temperature 99.0 F 99.1 F 99.1 F Pulse Rate 79 74 81 Respiratory Rate 22 Blood Pressure 94/55 L 127/59 L 154/65 H Pulse Oximetry 91 93 94 01/05/21 05:45 01/05/21 06:00 01/05/21 07:00 Temperature 99.1 F 99.1 F 99.1 F Pulse Rate 81 73 61 Respiratory Rate 22 22 22 Blood Pressure 147/65 H 138/64 126/58 L Pulse Oximetry 93 93 94 01/05/21 07:50 01/05/21 08:00 01/05/21 08:05 Temperature 99.3 F 99.3 F Pulse Rate 58 L 57 L Respiratory Rate 22 Blood Pressure 130/63 Pulse Oximetry 96 95 95 01/05/21 09:00 01/05/21 09:05 01/05/21 10:00 Temperature 99.1 F 99.1 F 99.1 F Pulse Rate 54 L 62 104 H Respiratory Rate 22 22 22 Blood Pressure 146/66 H 112/52 L Pulse Oximetry 96 96 96 01/05/21 10:05 Temperature 99.1 F Pulse Rate 109 H Respiratory Rate 22 Blood Pressure Pulse Oximetry 95 Fraction of Inspired Oxygen 50 SaO2/FiO2 Ratio 227 Oxygen Delivery Method Mechanical Ventilation Oxygen Flow Rate 50 Narrative Exam Narrative: GEN: obese male, intubated and sedated. HEENT: MMM, OG tube in place. CV: regular rate and rhythm, no murmurs PULM: bibasilar rhonchi, L > R. ABD: soft, non-distended SKIN: intertrigo in skin folds Ext: no edema or joint effusions, extremities warm and well perfused NEURO: sedated, PERRL Objective Labs Result Diagrams: 01/05/21 04:59 01/05/21 04:59 Labs: Laboratory Results - last 24 hr 01/04/21 01/04/21 01/05/21 05:00 20:35 04:59 WBC RBC Hgb Hct MCV MCH MCHC RDW Plt Count Neut % (Auto) Lymph % (Auto) [place] % (Auto) Eos % (Auto) Baso % (Auto) Neut # (Auto) Lymph # (Auto) [place] # (Auto) Eos # (Auto) Baso # (Auto) ABG pH 7.38 ABG pCO2 32.6 L ABG pO2 64 L ABG HCO3 19 L ABG Total CO2 20 L ABG O2 Saturation 92 L ABG Base Excess -6.0 L FiO2 40 Sodium 135 L Potassium 5.1 Chloride 109 H Carbon Dioxide 23 BUN 39 H Creatinine 0.78 Estimated GFR > 60.0 BUN/Creatinine Ratio 50.0 H Glucose 404 H Calcium 7.6 L Magnesium Total Bilirubin 0.3 AST 40 ALT 38 Alkaline Phosphatase 102 Total Protein 6.0 L Albumin 2.9 L Globulin 3.1 Albumin/Globulin Ratio 0.9 L Triglycerides 186 H 01/05/21 01/05/21 01/05/21 04:59 04:59 05:00 WBC 9.2 RBC 4.37 L Hgb 12.0 L Hct 37.6 L MCV 86.2 MCH 27.5 MCHC 31.9 RDW 16.4 H Plt Count 359 Neut % (Auto) 81.9 H Lymph % (Auto) 9.2 L [place] % (Auto) 8.7 Eos % (Auto) 0.0 L Baso % (Auto) 0.2 Neut # (Auto) 7500 H Lymph # (Auto) 800 L [place] # (Auto) 800 Eos # (Auto) 0 Baso # (Auto) 0 ABG pH ABG pCO2 ABG pO2 ABG HCO3 ABG Total CO2 ABG O2 Saturation ABG Base Excess FiO2 Sodium Potassium Chloride Carbon Dioxide BUN Creatinine Estimated GFR BUN/Creatinine Ratio Glucose Calcium Magnesium 2.7 H Total Bilirubin AST ALT Alkaline Phosphatase Total Protein Albumin Globulin Albumin/Globulin Ratio Triglycerides 174 H [facility] Medical History (Updated 01/01/21 @ 16:05 by Romeo Linn DO) HLD (hyperlipidemia) HTN (hypertension) Type 2 diabetes mellitus Social History household members: children Assessment & Plan Assessment & Plan narrative: 1. COVID-19 pneumonia with acute hypoxic respiratory failure -unvaccinated male, COVID positive with bilateral consolidation on outside CT. elevated ESR, CRP, D-dimer. patient presented moderately ill with hypoxia on presentation, cough, profound weakness, and diarrhea as well as noted in acute renal failure -provide supplemental O2, since admission oxygen requirements were worsening. was advanced slowly, attempted precedex to avoid intubation, however ultimately worsened to point of needing intubation late on 01/02. Continue mechanical ventilation, appreciate tele-grain broker assistance. -dexamethasone 6 mg IV q.d. for up to 10 days, monitor blood sugars closely -remdesivir 200 mg x 1 then 100 mg IV q.d. x4 days. Now complete -baricitinib started 12/31 after advancing to heated high flow. Continue x14 days. -continue sedation with propfol and fentanyl, when waking he desaturates. PO2 improved on ABG. continue to wean as tolerated. -currently on fentanyl, propofol with bradycardia and mildly elevated triglycerides -trend triglycerides daily -attempt to wean propofol and if remains bradycardic will consider switch to versed -continue dopamine for now for MAP>65, and for bradycardia -OG tube with tube feeds, currently with high residuals so still below goal 2. Acute metabolic encephalopathy, -patient presented with confusion in setting of hypoxia, NIXON, COVID pneumonia and UTI. Initially improved but worsened on 01/02. -worsening likely hospital induced delirium and worsening hypoxia. Attempted haldol, ativan without much help. Tried fentanyl, and precedex for sedation in hopes to avoid intubation however these were unsuccessful and patient continued to decline. 3. Urinary tract infection -outside UA with many bacteria and WBC, culture with citrobacter sens. to ceftriaxone. -continue Rocephin 1 g IV q.d. started at outside hospital, duration 7 days 4. Chronic urinary retention with bilateral hydronephrosis on CT -Mendez placed at outside ED, manage Mendez -started tamsulosin 0.4 mg q.d. with attempted trial of Mendez removal in 1-2 weeks 5. 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 and metformin 850 mg t.i.d. -12/29 increased Lantus to 60 units b.i.d. but then with hypoglycemia. Now 30 U BID. Sugars increasing throughout the day today, was on D5 1/2 NS for hypoglycemia yesterday. Will stop with ability to give tube feeds. continue to follow and adjust therapies. Consider insulin infusion. -holding glimepiride and metformin due to acute renal failure initially -01/04 - increased insulin to 40 U BID from 30 for continued high blood sugars. 6. Acute kidney injury, resolved -likely prerenal due to diarrhea associated with COVID, possible obstructive component as well. -serum creatinine 3.2 at outside ED, baseline creatinine appears 1.48 from April 2019, improved to 0.68 now. -can stop IV fluids with tube feedings to start today 7. Hypertension -holding patient's lisinopril and furosemide due to initial NIXON -holding medications now while sedated. 8. History of TIA -continued patient's clopidogrel 75 mg q.d. and atorvastatin 80 mg q.p.m. Plavix recommended to be held by tele-grain broker while on BID lovenox. Lines: R radial arterial line, placed 01/03. Midline L arm. OG tube. GI ppx: Famotidine 20 mg IV BID DVT prophylaxis:? Lovenox, 40 BID for obesity. Code status:? Full code per wishes expressed by patient at time of admission, rediscussed day prior to intubation and he remained full code. He would not want tracheostomy per discussions with Dr. Linn Surrogate decision maker: Son, Ranjit Curtis Time Spent With Patient Critical Care time: I spent a total of [] minutes of critical care time on this patient's care today; this time is exclusive of procedural time.
--- NOTE | 2021-01-05 12:43 | PM.PN.1 ---
Subjective Subjective Date Patient Seen: 01/05/21 Time Patient Seen: 08:00 Exam Vital Signs (past 8 hours): - 01/05/21 04:45 01/05/21 05:00 01/05/21 05:06 Temperature 99.0 F 99.0 F 99.0 F Pulse Rate 105 H 111 H 79 Respiratory Rate 21 20 22 Blood Pressure 121/60 121/58 L 94/55 L Pulse Oximetry 91 94 91 01/05/21 05:15 01/05/21 05:30 01/05/21 05:45 Temperature 99.1 F 99.1 F 99.1 F Pulse Rate 74 81 81 Respiratory Rate 22 22 22 Blood Pressure 127/59 L 154/65 H 147/65 H Pulse Oximetry 93 94 93 01/05/21 06:00 01/05/21 07:00 01/05/21 07:50 Temperature 99.1 F 99.1 F Pulse Rate 73 61 Respiratory Rate 22 22 Blood Pressure 138/64 126/58 L Pulse Oximetry 93 94 96 01/05/21 08:00 01/05/21 08:05 01/05/21 09:00 Temperature 99.3 F 99.3 F 99.1 F Pulse Rate 58 L 57 L 54 L Respiratory Rate 22 22 22 Blood Pressure 130/63 146/66 H Pulse Oximetry 95 95 96 01/05/21 09:05 01/05/21 10:00 01/05/21 10:05 Temperature 99.1 F 99.1 F 99.1 F Pulse Rate 62 104 H 109 H Respiratory Rate 22 22 22 Blood Pressure 112/52 L Pulse Oximetry 96 96 95 Fraction of Inspired Oxygen 50 SaO2/FiO2 Ratio 227 Oxygen Delivery Method Mechanical Ventilation Oxygen Flow Rate 50 Objective Labs Result Diagrams: 01/05/21 04:59 01/05/21 04:59 Labs: Laboratory Results - last 24 hr 01/04/21 01/04/21 01/05/21 05:00 20:35 04:59 WBC RBC Hgb Hct MCV MCH MCHC RDW Plt Count Neut % (Auto) Lymph % (Auto) [place] % (Auto) Eos % (Auto) Baso % (Auto) Neut # (Auto) Lymph # (Auto) [place] # (Auto) Eos # (Auto) Baso # (Auto) ABG pH 7.38 ABG pCO2 32.6 L ABG pO2 64 L ABG HCO3 19 L ABG Total CO2 20 L ABG O2 Saturation 92 L ABG Base Excess -6.0 L FiO2 40 Sodium 135 L Potassium 5.1 Chloride 109 H Carbon Dioxide 23 BUN 39 H Creatinine 0.78 Estimated GFR > 60.0 BUN/Creatinine Ratio 50.0 H Glucose 404 H Calcium 7.6 L Magnesium Total Bilirubin 0.3 AST 40 ALT 38 Alkaline Phosphatase 102 Total Protein 6.0 L Albumin 2.9 L Globulin 3.1 Albumin/Globulin Ratio 0.9 L Triglycerides 186 H 01/05/21 01/05/21 01/05/21 04:59 04:59 05:00 WBC 9.2 RBC 4.37 L Hgb 12.0 L Hct 37.6 L MCV 86.2 MCH 27.5 MCHC 31.9 RDW 16.4 H Plt Count 359 Neut % (Auto) 81.9 H Lymph % (Auto) 9.2 L Ellsworth % (Auto) 8.7 Eos % (Auto) 0.0 L Baso % (Auto) 0.2 Neut # (Auto) 7500 H Lymph # (Auto) 800 L Ellsworth # (Auto) 800 Eos # (Auto) 0 Baso # (Auto) 0 ABG pH ABG pCO2 ABG pO2 ABG HCO3 ABG Total CO2 ABG O2 Saturation ABG Base Excess FiO2 Sodium Potassium Chloride Carbon Dioxide BUN Creatinine Estimated GFR BUN/Creatinine Ratio Glucose Calcium Magnesium 2.7 H Total Bilirubin AST ALT Alkaline Phosphatase Total Protein Albumin Globulin Albumin/Globulin Ratio Triglycerides 174 H [facility] Medical History (Updated 01/01/21 @ 16:05 by Romeo Linn DO) HLD (hyperlipidemia) HTN (hypertension) Type 2 diabetes mellitus Social History household members: children Assessment & Plan Time Spent With Patient Critical Care time: I spent a total of [] minutes of critical care time on this patient's care today; this time is exclusive of procedural time.
--- NOTE | 2021-01-05 13:18 | PC.NURSE ---
Addendum entered by Deepa Diaz R.N. 01/05/21 15:12: TF increased to 45ml/hr @ 1500 Original Note: Upon this RN's arrival this morning propofol was noted at 30mcg/kg/min (updated on JUN). Fentanyl and dopamine gtt's infusing as ordered (see JUN) Patient on telemetry, noted Sinus bradycardia/SR with heart rates approx. 57-62. Patient given IVP dose of fentanyl this morning as ordered prn while waiting for refill to arrive. Ventilator settings remain unchanged at this time Fio2 50%, PEP 10, RR 22, tidal 440. Arterial line in place to right wrist, dressing remains CDI without signs of bleeding or discoloration. Dobhoff to left nare in place with tube feeding diet as ordered, followed by splitting machine operator helper. GALDINO midline intact. Mendez in place draining clear yellow urine. Buttocks is excoriated, continuing with repositioning, barrier cream and david care. Per previous shift patient has been unable to tolerate proning, assisting with 2-3 PA to reposition side to side as tolerated at this time. Bed alarm on for safety. Continue to monitor, and follow plan of care.
[2021-01-05] MEDS: MIDAZOLAM 50 MG in DEXTROSE 5% IN WATER 240 ML 10 ML IV (16:59)
--- NOTE | 2021-01-05 18:52 | PC.NURSE ---
Addendum entered by Marianna Parra R.N. 01/05/21 22:37: Versed infusing at 5mg/hr and propofol stopped. Patient again became bradycardic this evening. Appears to be junctional at times. Per wolf hunter Dr. King, okay to accept bradycardia if MAP is adequate. Also okay to restart dopamine gtt as needed. Heart rate 39-41, Dopamine restarted at light rate of 1.5 mcg/kg/min. Original Note: Report received, care assumed 1530. A-line zeroed, consistent with cuff pressures. See MAR: Versed infusion started with intention of titrating down propofol. Started at 2mg/hr, increased to 3mg/hr. Dopamine titrated to off d/t tachycardia and hypertension. VSS at this time (1844) without Dopamine infusion. Tube feeding infusing at goal of 45ml/hr. Large unstageable purple area noted to coccyx. Pt cleaned, (2) Alevyn dressings placed, waffle cushion under coccyx, repositioned to right side. Heel boots also applied. Spoke to pt's son Carlo regarding patient's status and POC.
[2021-01-05 20:34] LABS: Fractionated Inspired Oxygen 50; HCO3 ABG 19 mmol/L (22-26); Oxygen Saturation ABG 95 % (95-100); PCO2 ABG 32.4 mmHg (35-45); PO2 ABG 74 mmHg (80-100); TCO2 ABG 20 mmol/L (21-31)
[2021-01-05 20:35] LABS: pH ABG 7.37 (7.35-7.45)
[2021-01-05] MEDS: INSULIN GLARGINE 100 UNIT/ML 3ML PEN 60 UNIT SUBCUT (21:00)
[2021-01-05] MEDS: SODIUM CHLORIDE 0.9% 250 ML 21 ML IV (21:03)
--- NOTE | 2021-01-05 21:06 | PM.ICURNDS ---
- :: This patient was seen via real time interactive two-way audiovisual telecommunication. Note: Patiented transitioned from Propofol drip to Versed drip (still on fentanyl drip) but HR still in 40's at times but with MAP in 70-80s. Nurses report that pt. is so sensitive to dopamine that when they start dopamine to raise HR, his HR improves but he becomes hypertensive. If unable to raise patient's HR with dopamine without making him hypertensive, can consider trying Isoproterenol drip. Patient's vent requirements remain relatively stable on AC 22 VT 440 PEEP 10 and FIO2 of 50% with stable ABG at 7.37/32/74.
[2021-01-06] VITALS (57 sets, daily range): BP systolic 136–197; BP diastolic 51–83; PULSE 47–98; RESP 0–25; TEMP 36.9–37.6; O2SAT 88–96
[2021-01-06] MEDS: CHLORHEXIDINE GLUCONATE 15 ML CUP PO ×4 (00:23→17:45)
[2021-01-06] MEDS: INSULIN LISPRO 100 UNIT/ML 3ML VIAL SUBCUT ×4 (00:23→19:41)
[2021-01-06] MEDS: DOPAMINE HCL IN DEXTROSE 5 % 400 MG/250 ML PLAST..BAG 8.753 MG IV (01:00)
[2021-01-06] MEDS: fentaNYL 1,000 MCG in DEXTROSE 5% IN WATER 230 ML 57.75 ML IV (03:00)
[2021-01-06 05:27] LABS: Hematocrit 34.5 % (41-53); Hemoglobin 11.2 g/dL (13.5-17.5); Mean Corpuscular HGB Conc 32.5 % (30-36); Mean Corpuscular Hemoglobin 27.6 PG (26-34); Platelet Count 361 X10^3/uL (150-400); Red Blood Cell Count 4.06 X10^6/uL (4.5-5.9); Red Cell Distribution Width 15.6 % (11.6-14.8); White Blood Cell Count 9.5 X10^3/uL (4.5-11.0)
[2021-01-06] MEDS: MIDAZOLAM 50 MG in DEXTROSE 5% IN WATER 240 ML 25 ML IV (05:31)
[2021-01-06 05:34] LABS: Alanine Aminotransferase 30 IU/L (<50); Albumin 2.7 g/dL (3.5-5.0); Albumin Globulin Ratio 0.9 (1.0-2.8); Alkaline Phosphatase 85 U/L (38-126); Aspartate Aminotransferase 35 IU/L (17-59); BUN Creatinine Ratio 50.7 (6-22); Bilirubin Total 0.3 mg/dL (0.2-1.3); Blood Urea Nitrogen 35 mg/dL (9-20); Carbon Dioxide 27 mmol/L (22-32); Chloride 110 mmol/L (98-107); Estimated Glomerular Filt Rate > 60.0 mL/min (>60); Globulin 2.9 g/dL (1.7-4.1); Glucose 318 mg/dL (80-110); HEMOLYSIS < 15 (0-50); Potassium 4.4 mmol/L (3.4-5.1); Sodium 137 mmol/L (137-145); Total Protein 5.6 g/dL (6.3-8.2)
[2021-01-06 05:54] LABS: Triglycerides 102 mg/dL (35-150)
[2021-01-06] MEDS: MIDAZOLAM 50 MG/10 ML VIAL IV (05:54)
--- NOTE | 2021-01-06 08:00 | DI.RAD.S_ITS ---
PROCEDURE: XR CHEST 1V INDICATIONS: intubation TECHNIQUE: One view of the chest was acquired. COMPARISON: [facility], CR, XR CHEST 1V, 01/05/2021, 5:24. FINDINGS: Surgical changes and devices: Endotracheal tube is unchanged. Nasogastric tube appears to remain present although mid and distal portions are not well visualized. Left PICC line remains present projecting over the left axilla. Lungs and pleura: There is a stable appearance of bilateral pulmonary opacities. Trace blunting of the costophrenic angles are present. Mediastinum: Mediastinal contours appear normal. Heart size is normal. Bones and chest wall: No suspicious bony lesions. Overlying soft tissues appear unremarkable. IMPRESSION: Stable bilateral pulmonary opacities with trace effusions, suggestive of multifocal pneumonia with little interval change. Dictated by: Rafaela Armstrong M.D. on 01/06/2021 at 8:54 Approved by: Rafaela Armstrong M.D. on 01/06/2021 at 8:59
[2021-01-06] MEDS: fentaNYL 1,000 MCG in DEXTROSE 5% IN WATER 230 ML 43.313 ML IV ×3 (08:24→22:35)
[2021-01-06] MEDS: DEXAMETHASONE 10 MG/ML VIAL 6 MG IV (09:39)
[2021-01-06] MEDS: BARICITINIB 2 MG TABLET 4 MG PO (09:39)
[2021-01-06] MEDS: ENOXAPARIN 40 MG/0.4 ML SYRINGE SUBCUT ×2 (09:39→21:00)
[2021-01-06] MEDS: FAMOTIDINE 20 MG/2 ML VIAL IV ×2 (09:39→21:00)
[2021-01-06] MEDS: SODIUM CHLORIDE 0.9% FLUSH 10 ML IV ×2 (09:40)
[2021-01-06] MEDS: INSULIN GLARGINE 100 UNIT/ML 3ML PEN 70 UNIT SUBCUT ×2 (09:42→21:01)
--- NOTE | 2021-01-06 12:43 | PC.NURSE ---
Addendum entered by Sylvester Caputo R.N. 01/06/21 14:50: HR decreased to 49/50, blood pressure remaining stable during this time. Dopamine increased back to 2mcg/kg/min with increase in HR to 55-63. current arterial pressure measuring 144/54. Addendum entered by Sylvester Caputo R.N. 01/06/21 14:36: 12noon A line zeroed, and consistent with automatic BP measurements. Site remains intact without bleeding or redness noted. +[facility] Original Note: Patient tolerating fentanyl and versed infusions as ordered for sedation, see MAR for titration. RASS score currently -4, and no signs of pain at this time. Ventilator settings remain unchanged today, Fio2 50%, PEP 10, RR 22, Tidal 440. Bilateral soft wrist restraints remain in place as when patient stirs and awakens he immediately attempts to move his hands towards tubes and lines. Patient able to squeeze hands, does not attempt to open eyes. Mendez remains in place and intact, draining clear yellow urine. Patient's buttocks worsened, large fredrick-able redness, excoriation and area of inner coccyx maceration. Made aware of concern for unstageable pressure injury from previous shift, allevyn removed from buttocks and cleansed and photos taken. Pressure relief measures continued with repositioning every 1-2 hours, barrier cream, and waffle cushion in place. Foam heel protectors remain in place. Patient tolerating PIVOT 1.5 at goal rate of 45ml per hour via dobhoff feeding tube. Message left for collar pointer to review as patient continues with high blood sugars. Elevated sugars discussed with Dr. Benavides this morning and lantus increased to 70 units BID. Continue to monitor, continue with plan of care.
--- NOTE | 2021-01-06 14:05 | PC.NURSE ---
Discussion with Natalee HARO, trial for Glucerna to see if CBG show any better control. Will change orders for next feeding. Continue on Lantus BID and high algorithm
--- NOTE | 2021-01-06 15:16 | PM.PN.1 ---
Subjective Subjective Date Patient Seen: 01/06/21 Time Patient Seen: 08:00 Interval history: Patient continued to be dopamine dependent yesterday, would become bradycardic when stopped. Because of inability to stop decided to stop propofol and transition to versed which happened overnight. Patient continued to remain bradycardic. His tube feeds were increased to goal with residual 100-200cc. His urine output has remained stable. His oxygen saturation has not significantly changed and his vent settings remain stable. Exam Vital Signs (past 8 hours): - 01/06/21 08:00 01/06/21 08:05 01/06/21 09:00 Temperature 98.8 F 98.8 F Pulse Rate 54 L 55 L 98 H Respiratory Rate 22 22 25 H Blood Pressure 150/67 H 137/56 L Pulse Oximetry 94 93 91 01/06/21 09:05 01/06/21 10:00 01/06/21 10:05 Temperature 99.0 F 99.3 F 99.3 F Pulse Rate 95 H 63 79 Respiratory Rate 22 22 22 Blood Pressure 136/60 Pulse Oximetry 93 94 94 01/06/21 11:00 01/06/21 12:00 01/06/21 12:55 Temperature 99.5 F 99.5 F 99.7 F H Pulse Rate 58 L 67 58 L Respiratory Rate 22 22 22 Blood Pressure 161/69 H 152/67 H Pulse Oximetry 92 91 93 01/06/21 13:00 01/06/21 13:01 01/06/21 14:27 Temperature 99.7 F H 99.7 F H Pulse Rate 73 67 54 L Respiratory Rate 22 22 22 Blood Pressure 163/83 H 146/59 H Pulse Oximetry 93 93 95 01/06/21 14:52 Temperature Pulse Rate 54 L Respiratory Rate Blood Pressure 144/54 H Pulse Oximetry Fraction of Inspired Oxygen 50 SaO2/FiO2 Ratio 227 Oxygen Delivery Method Mechanical Ventilation Oxygen Flow Rate 50 Narrative Exam Narrative: GEN: obese male, intubated and sedated. HEENT: MMM, OG tube in place. CV: regular rate and rhythm, no murmurs PULM: bibasilar rhonchi, L > R. ABD: soft, non-distended SKIN: intertrigo in skin folds Ext: no edema or joint effusions, extremities warm and well perfused NEURO: sedated, PERRL : rao in place Objective Labs Result Diagrams: 01/06/21 05:00 01/06/21 05:00 Labs: Laboratory Results - last 24 hr 01/05/21 01/06/21 01/06/21 19:52 05:00 05:00 WBC 9.5 RBC 4.06 L Hgb 11.2 L Hct 34.5 L MCV 85.0 MCH 27.6 MCHC 32.5 RDW 15.6 H Plt Count 361 ABG pH 7.37 ABG pCO2 32.4 L ABG pO2 74 L ABG HCO3 19 L ABG Total CO2 20 L ABG O2 Saturation 95 ABG Base Excess -6.0 L FiO2 50 Sodium 137 Potassium 4.4 Chloride 110 H Carbon Dioxide 27 BUN 35 H Creatinine 0.69 Estimated GFR > 60.0 BUN/Creatinine Ratio 50.7 H Glucose 318 H Calcium 8.0 L Total Bilirubin 0.3 AST 35 ALT 30 Alkaline Phosphatase 85 Total Protein 5.6 L Albumin 2.7 L Globulin 2.9 Albumin/Globulin Ratio 0.9 L Triglycerides 01/06/21 05:00 WBC RBC Hgb Hct MCV MCH MCHC RDW Plt Count ABG pH ABG pCO2 ABG pO2 ABG HCO3 ABG Total CO2 ABG O2 Saturation ABG Base Excess FiO2 Sodium Potassium Chloride Carbon Dioxide BUN Creatinine Estimated GFR BUN/Creatinine Ratio Glucose Calcium Total Bilirubin AST ALT Alkaline Phosphatase Total Protein Albumin Globulin Albumin/Globulin Ratio Triglycerides 102 [facility] Medical History (Updated 01/01/21 @ 16:05 by Romeo Linn DO) HLD (hyperlipidemia) HTN (hypertension) Type 2 diabetes mellitus Social History household members: children Assessment & Plan Assessment & Plan narrative: 1. COVID-19 pneumonia with acute hypoxic respiratory failure -unvaccinated male, COVID positive with bilateral consolidation on outside CT. elevated ESR, CRP, D-dimer. patient presented moderately ill with hypoxia on presentation, cough, profound weakness, and diarrhea as well as noted in acute renal failure -provide supplemental O2, since admission oxygen requirements were worsening. was advanced slowly, attempted precedex to avoid intubation, however ultimately worsened to point of needing intubation late on 01/02. Continue mechanical ventilation, appreciate tele-milling supervisor assistance. -dexamethasone 6 mg IV q.d. for up to 10 days, monitor blood sugars closely -remdesivir 200 mg x 1 then 100 mg IV q.d. x4 days. Now complete -baricitinib started 12/31 after advancing to heated high flow. Continue x14 days. -continue sedation with versed and fentanyl, when waking he desaturates. PO2 improved on ABG. continue to wean as tolerated. -currently on fentanyl, versed with bradycardia and mildly elevated triglycerides -discontinued propofol due to bradycardia, which had no significant effect on heart rate -trend triglycerides daily -continue dopamine for now for MAP>65, and for bradycardia -OG tube with tube feeds, currently with high residuals so still below goal 2. Acute metabolic encephalopathy, -patient presented with confusion in setting of hypoxia, NIXON, COVID pneumonia and UTI. Initially improved but worsened on 01/02. -worsening likely hospital induced delirium and worsening hypoxia. Attempted haldol, ativan without much help. Tried fentanyl, and precedex for sedation in hopes to avoid intubation however these were unsuccessful and patient continued to decline. 3. Urinary tract infection -outside UA with many bacteria and WBC, culture with citrobacter sens. to ceftriaxone. -continue Rocephin 1 g IV q.d. started at outside hospital, duration 7 days 4. Chronic urinary retention with bilateral hydronephrosis on CT -Rao placed at outside ED, manage Rao -started tamsulosin 0.4 mg q.d. with attempted trial of Rao removal in 1-2 weeks 5. 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 and metformin 850 mg t.i.d. -12/29 increased Lantus to 60 units b.i.d. but then with hypoglycemia. Now 30 U BID. Sugars increasing throughout the day today, was on D5 1/2 NS for hypoglycemia yesterday. Will stop with ability to give tube feeds. continue to follow and adjust therapies. Consider insulin infusion. -holding glimepiride and metformin due to acute renal failure initially -01/04 - increased insulin to 40 U BID from 30 for continued high blood sugars. 6. Acute kidney injury, resolved -likely prerenal due to diarrhea associated with COVID, possible obstructive component as well. -serum creatinine 3.2 at outside ED, baseline creatinine appears 1.48 from April 2019, improved to 0.68 now. -can stop IV fluids with tube feedings to start today 7. Hypertension -holding patient's lisinopril and furosemide due to initial NIXON -holding medications now while sedated. 8. History of TIA -continued patient's clopidogrel 75 mg q.d. and atorvastatin 80 mg q.p.m. Plavix recommended to be held by tele-milling supervisor while on BID lovenox. Lines: R radial arterial line, placed 01/03. Midline L arm. OG tube. Rao. GI ppx: Famotidine 20 mg IV BID DVT prophylaxis:? Lovenox, 40 BID for obesity. Code status:? Full code per wishes expressed by patient at time of admission, rediscussed day prior to intubation and he remained full code. He would not want tracheostomy per discussions with Dr. Linn Surrogate decision maker: SonRanjit Time Spent With Patient Critical Care time: I spent a total of [] minutes of critical care time on this patient's care today; this time is exclusive of procedural time.
--- NOTE | 2021-01-06 16:15 | DIET.PN1 ---
Dietary Progress Note RD Note: Nursing requests trial of different tube feed formula secondary to pts BGs remaining 200-400. Pts previous formula provides 187g CHO per day, trialing Glucerna 1.5 which provides 144g CHO per day. Rate, kcals, PRO, free water flushes remain the same. Please start pt at goal of 45mL/h once current bottle of Pivot 1.5 has completed running. Ht: 177.8 cm Wt: 116.7 kg BMI: 35.2 Last BM: 01/05/21 (01/05/21 19:01) MNA: 10 Jack Score: 14 Diet: 01/06/21 Dinner Tube Feeding Diet Diet Modifications: TF Supplement type: Glucerna 1.5 rita TF mode of delivery: Continuous Starting flow rate mL/hr: 45 Flow rate goal mL/hr: 45 Titration Schedule to reach Goal Rate: start at goal Max total daily volume in mL: 3,200 Free fluid: 350 Free Water Frequency: Q4H Comment: 350ml Q6 hours water flush Nutrition Type of Feeding Tube Dobhoff 01/06/21 09:00 Type of Feeding Tube Dobhoff 01/06/21 01:00 Type of Feeding Tube Dobhoff 01/05/21 00:00 Labs: RBC 4.06 X10^6/uL (4.5-5.9) L 01/06/21 05:00 Hgb 11.2 g/dL (13.5-17.5) L 01/06/21 05:00 Hct 34.5 % (41-53) L 01/06/21 05:00 Creatinine 0.69 mg/dL (0.66-1.25) 01/06/21 05:00 Hemoglobin A1c 10.7 % (4.0-6.0) H 12/28/20 19:20 Monitoring/Evaluations: TF tolerance
[2021-01-06] MEDS: MIDAZOLAM 50 MG in DEXTROSE 5% IN WATER 240 ML 12.5 ML IV (20:59)
--- NOTE | 2021-01-06 21:11 | PM.ICURNDS ---
- :: This patient was seen via real time interactive two-way audiovisual telecommunication. Note: No Sig change. Patient still on PEEP of 10 and FIo2 of 50%. He is on and off low dose dopamine drip for bradycardia.
[2021-01-06 21:51] LABS: HEMOLYSIS < 15 (0-50); Magnesium 2.6 mg/dL (1.6-2.3); Potassium 4.9 mmol/L (3.4-5.1)
[2021-01-06] MEDS: FUROSEMIDE 40 MG/4 ML VIAL 20 MG IV (21:53)
[2021-01-06 22:17] LABS: HCO3 ABG 21 mmol/L (22-26); PCO2 ABG 32.2 mmHg (35-45); PO2 ABG 58 mmHg (80-100); TCO2 ABG 22 mmol/L (21-31); pH ABG 7.41 (7.35-7.45)
[2021-01-06 22:18] LABS: Fractionated Inspired Oxygen 40; Oxygen Saturation ABG 90 % (95-100)
--- NOTE | 2021-01-06 22:59 | PC.NURSE ---
Report received, care assumed 1530. Pt. stable throughout shift. Versed, Fentanyl, and Dopamine gtt rates unchanged throughout shift (see MAR). Pt. repositioned frequently. Episodes of hypertension with stimulation but returns normotensive with rest. Spoke with son Carlo as to status and POC.
[2021-01-07] VITALS (59 sets, daily range): BP systolic 113–174; BP diastolic 44–75; PULSE 45–112; RESP 0–38; TEMP 36.6–37.7; O2SAT 87–96
[2021-01-07] MEDS: CHLORHEXIDINE GLUCONATE 15 ML CUP PO ×4 (00:10→17:10)
[2021-01-07] MEDS: INSULIN LISPRO 100 UNIT/ML 3ML VIAL SUBCUT ×4 (00:15→18:25)
[2021-01-07] MEDS: fentaNYL 1,000 MCG in DEXTROSE 5% IN WATER 230 ML 43.313 ML IV (05:00)
[2021-01-07 05:33] LABS: Hematocrit 34.6 % (41-53); Hemoglobin 11.1 g/dL (13.5-17.5); Mean Corpuscular Volume 84.5 fL (80-100); Platelet Count 396 X10^3/uL (150-400); Red Blood Cell Count 4.09 X10^6/uL (4.5-5.9); Red Cell Distribution Width 16.2 % (11.6-14.8); White Blood Cell Count 9.9 X10^3/uL (4.5-11.0)
[2021-01-07 06:07] LABS: Alanine Aminotransferase 32 IU/L (<50); Albumin 2.8 g/dL (3.5-5.0); Albumin Globulin Ratio 0.9 (1.0-2.8); Alkaline Phosphatase 85 U/L (38-126); Aspartate Aminotransferase 28 IU/L (17-59); BUN Creatinine Ratio 55.6 (6-22); Bilirubin Total 0.3 mg/dL (0.2-1.3); Blood Urea Nitrogen 40 mg/dL (9-20); Calcium 8.1 mg/dL (8.4-10.2); Carbon Dioxide 28 mmol/L (22-32); Chloride 106 mmol/L (98-107); Estimated Glomerular Filt Rate > 60.0 mL/min (>60); Glucose 277 mg/dL (80-110); HEMOLYSIS 19 (0-50); Potassium 4.4 mmol/L (3.4-5.1); Sodium 137 mmol/L (137-145); Total Protein 5.8 g/dL (6.3-8.2)
[2021-01-07 06:36] LABS: Triglycerides 138 mg/dL (35-150)
--- NOTE | 2021-01-07 06:39 | PC.NURSE ---
0500- Patient had medium soft stool. Patient actively attempting to reach ETT. BP and Heart rate elevated to the point of Dopamine being placed on standby. Cream applied to bottom, which is sore and slightly bloody. Good uop with Lasix dose last lolita. Versed titrated up to 5mg/hr as patient seemed too awake and uncomfortable. CXR done. BG this AM 277 via lab result, covered per orders. Vent settings remain the same. Patient did require 02 breathes at 100% during care as he desaturates with turning or stimulation. Lungs remain very dim and clear to auscultation. Low grade temperature noted. Will monitor closely.
--- NOTE | 2021-01-07 07:02 | RT ---
Patient recieved on vent on settings of PRVC rate of 22 breathing 22, Vt 440, PEEP of 10, and FIO2 of 40%. ABG ordered and obtained with PH 7.412, PCO2 32.2,Po2 58, HCO3 20.5, B.E. -4, SPO2 90%. FIO2 increased to 50% after those results. RN and Hospitalist notified of change. Suctioned for sm to mod amounts clear to creamy secreations from ET tube. Tube care given Q2 between RT and RN. BS mostly diminished and course. Expiratory wheeze noted to Right lung filed on last check but clearing with suctioning.
--- NOTE | 2021-01-07 07:41 | PC.NURSE ---
Am shift 0730, Dopamine restarted @ 0730 @ 2mcg/kg/min. HR 44 and BP 130/58 RASS -4 Reduced Versed to 2.gmcg/kg/min.
--- NOTE | 2021-01-07 08:00 | DI.RAD.S_ITS ---
PROCEDURE: XR CHEST 1V INDICATIONS: intubation TECHNIQUE: One view of the chest was acquired. COMPARISON: [facility], CR, XR CHEST 1V, 01/01/2021, 6:33. [facility], CR, XR CHEST 1V, 01/06/2021, 5:38. [facility], CR, XR CHEST 1V, 01/05/2021, 5:24. FINDINGS: Surgical changes and devices: Endotracheal tube in the midtrachea. Enteric tube coursing into the stomach. Catheter at the left axilla. Tubes and lines are unchanged. Lungs and pleura: Bilateral patchy airspace opacity is not significantly changed. Low lung volumes. No pleural effusions or pneumothorax. Mediastinum: Mediastinal contours appear normal. Heart size is normal. Bones and chest wall: No suspicious bony lesions. Overlying soft tissues appear unremarkable. IMPRESSION: Tubes and lines are unchanged in position. Bilateral patchy airspace opacity is not significantly changed. Dictated by: Humza Wyman M.D. on 01/07/2021 at 7:59 Approved by: Humza Wyman M.D. on 01/07/2021 at 8:01
[2021-01-07] MEDS: DOPAMINE HCL IN DEXTROSE 5 % 400 MG/250 ML PLAST..BAG 8.753 MG IV (09:17)
[2021-01-07] MEDS: ENOXAPARIN 40 MG/0.4 ML SYRINGE SUBCUT ×2 (09:36→20:56)
[2021-01-07] MEDS: FAMOTIDINE 20 MG/2 ML VIAL IV ×2 (09:37→20:56)
[2021-01-07] MEDS: NYSTATIN POWDER 15GM 1 APPLIC TOP (09:38)
[2021-01-07] MEDS: INSULIN GLARGINE 100 UNIT/ML 3ML PEN 70 UNIT SUBCUT (11:00)
[2021-01-07 12:13] LABS: Fractionated Inspired Oxygen 50; HCO3 ABG 28 mmol/L (22-26); Oxygen Saturation ABG 91 % (95-100); PO2 ABG 63 mmHg (80-100); TCO2 ABG 29 mmol/L (21-31); pH ABG 7.38 (7.35-7.45)
[2021-01-07] MEDS: BARICITINIB 2 MG TABLET 4 MG PO (12:27)
[2021-01-07] MEDS: DEXAMETHASONE 10 MG/ML VIAL 6 MG IV (12:27)
--- NOTE | 2021-01-07 13:03 | P.PN_ITS ---
Subjective Subjective Date Patient Seen: 01/07/21 Time Patient Seen: 08:00 Interval history: Overnight he was again tried off dopamine. He again became bradycardic. He is now back on dopamine. Attempt was made to wean down his oxygen but he did desaturate to the 80s. ABG last night showed PaO2 of 58. He did get lasix last night with good urine output and no significant change in respiratory status. Exam Vital Signs (past 8 hours): - 01/07/21 05:30 01/07/21 06:00 01/07/21 06:24 Temperature 99.3 F 99.3 F 99.5 F Pulse Rate 97 H 64 94 H Respiratory Rate 38 H 22 22 Blood Pressure 153/70 H Pulse Oximetry 93 91 95 Fraction of Inspired Oxygen 50 SaO2/FiO2 Ratio 227 Oxygen Delivery Method Mechanical Ventilation Oxygen Flow Rate 50 Narrative Exam Narrative: GEN: obese male, intubated and sedated. HEENT: MMM, OG tube in place. CV: regular rate and rhythm, no murmurs PULM: bibasilar rhonchi, L > R. ABD: soft, non-distended SKIN: intertrigo in skin folds Ext: no edema or joint effusions, extremities warm and well perfused NEURO: sedated, PERRL : rao in place Objective Labs Result Diagrams: 01/07/21 05:00 01/07/21 05:00 Labs: Laboratory Results - last 24 hr 01/03/21 01/06/21 01/06/21 20:48 20:31 21:15 WBC RBC Hgb Hct MCV MCH MCHC RDW Plt Count ABG pH 7.34 L 7.41 ABG pCO2 36.4 32.2 L ABG pO2 171 H 58 L ABG HCO3 20 L 21 L ABG Total CO2 21 22 ABG O2 Saturation 99 90 L ABG Base Excess -6.0 L -4.0 L FiO2 100 40 Sodium Potassium 4.9 Chloride Carbon Dioxide BUN Creatinine Estimated GFR BUN/Creatinine Ratio Glucose Calcium Magnesium 2.6 H Total Bilirubin AST ALT Alkaline Phosphatase Total Protein Albumin Globulin Albumin/Globulin Ratio Triglycerides 01/07/21 01/07/21 01/07/21 05:00 05:00 05:00 WBC 9.9 RBC 4.09 L Hgb 11.1 L Hct 34.6 L MCV 84.5 MCH 27.0 MCHC 32.0 RDW 16.2 H Plt Count 396 ABG pH ABG pCO2 ABG pO2 ABG HCO3 ABG Total CO2 ABG O2 Saturation ABG Base Excess FiO2 Sodium 137 Potassium 4.4 Chloride 106 Carbon Dioxide 28 BUN 40 H Creatinine 0.72 Estimated GFR > 60.0 BUN/Creatinine Ratio 55.6 H Glucose 277 H Calcium 8.1 L Magnesium Total Bilirubin 0.3 AST 28 ALT 32 Alkaline Phosphatase 85 Total Protein 5.8 L Albumin 2.8 L Globulin 3.0 Albumin/Globulin Ratio 0.9 L Triglycerides 138 01/07/21 01/07/21 10:45 10:45 WBC RBC Hgb Hct MCV MCH MCHC RDW Plt Count ABG pH Cancelled 7.38 ABG pCO2 Cancelled 47.0 H ABG pO2 Cancelled 63 L ABG HCO3 Cancelled 28 H ABG Total CO2 Cancelled 29 ABG O2 Saturation Cancelled 91 L ABG Base Excess Cancelled 3.0 H FiO2 Cancelled 50 Sodium Potassium Chloride Carbon Dioxide BUN Creatinine Estimated GFR BUN/Creatinine Ratio Glucose Calcium Magnesium Total Bilirubin AST ALT Alkaline Phosphatase Total Protein Albumin Globulin Albumin/Globulin Ratio Triglycerides [facility] Medical History (Updated 01/01/21 @ 16:05 by Romeo Linn DO) HLD (hyperlipidemia) HTN (hypertension) Type 2 diabetes mellitus Social History household members: children Assessment & Plan Assessment & Plan narrative: 1. COVID-19 pneumonia with acute hypoxic respirator y failure -unvaccinated male, COVID positive with bilateral consolidation on outside CT. elevated ESR, CRP, D-dimer. patient presented moderately ill with hypoxia on presentation, cough, profound weakness, and diarrhea as well as noted in acute renal failure -provide supplemental O2, since admission oxygen requirements were worsening. was advanced slowly, attempted precedex to avoid intubation, however ultimately worsened to point of needing intubation late on 01/02. Continue mechanical ventilation, appreciate tele-vice president of sales assistance. -dexamethasone 6 mg IV q.d. for up to 10 days, monitor blood sugars closely -remdesivir 200 mg x 1 then 100 mg IV q.d. x4 days. Now complete -baricitinib started 12/31 after advancing to heated high flow. Continue x14 days. -continue sedation with versed and fentanyl, when waking he desaturates. PO2 improved on ABG. continue to wean as tolerated. -currently on fentanyl, versed with bradycardia and mildly elevated triglycerides -discontinued propofol due to bradycardia, which had no significant effect on heart rate -continue dopamine for now for MAP>65, and for bradycardia -OG tube with tube feeds, currently with high residuals so still below goal -attempted weaning of vent and diuresis to improve respiratory status with little change 2. Acute metabolic encephalopathy, -patient presented with confusion in setting of hypoxia, NIXON, COVID pneumonia and UTI. Initially improved but worsened on 01/02. -worsening likely hospital induced delirium and worsening hypoxia. Attempted haldol, ativan without much help. Tried fentanyl, and precedex for sedation in hopes to avoid intubation however these were unsuccessful and patient continued to decline. 3. Urinary tract infection, resolved -outside UA with many bacteria and WBC, culture with citrobacter sens. to ceftriaxone. -continue Rocephin 1 g IV q.d. started at outside hospital, duration 7 days 4. Chronic urinary retention with bilateral hydronephrosis on CT -Rao placed at outside ED, manage Rao -started tamsulosin 0.4 mg q.d. with attempted trial of Rao removal in 1-2 weeks 5. 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 and metformin 850 mg t.i.d. -12/29 increased Lantus to 60 units b.i.d. but then with hypoglycemia. Now 30 U BID. Sugars increasing throughout the day today, was on D5 1/2 NS for hypoglycemia yesterday. Will stop with ability to give tube feeds. continue to follow and adjust therapies. Consider insulin infusion. -holding glimepiride and metformin due to acute renal failure initially -01/04 - increased insulin to 40 U BID from 30 for continued high blood sugars. 6. Acute kidney injury, resolved -likely prerenal due to diarrhea associated with COVID, possible obstructive component as well. -serum creatinine 3.2 at outside ED, baseline creatinine appears 1.48 from April 2019, improved to 0.68 now. -can stop IV fluids with tube feedings to start today 7. Hypertension -holding patient's lisinopril and furosemide due to initial NIXON -holding medications now while sedated. 8. History of TIA -continued patient's clopidogrel 75 mg q.d. and atorvastatin 80 mg q.p.m. Plavix recommended to be held by tele-vice president of sales while on BID lovenox. Lines: R radial arterial line, placed 01/03. Midline L arm. OG tube. Rao. GI ppx: Famotidine 20 mg IV BID DVT prophylaxis:? Lovenox, 40 BID for obesity. Code status:? Full code per wishes expressed by patient at time of admission, rediscussed day prior to intubation and he remained full code. He would not want tracheostomy per discussions with Dr. Linn Surrogate decision maker: SonRanjit Time Spent With Patient Critical Care time: I spent a total of [] minutes of critical care time on this patient's care today; this time is exclusive of procedural time.
[2021-01-07] MEDS: MIDAZOLAM 50 MG in DEXTROSE 5% IN WATER 240 ML 25 ML IV (14:16)
[2021-01-07] MEDS: fentaNYL 1,000 MCG in DEXTROSE 5% IN WATER 230 ML 57.75 ML IV (14:16)
--- NOTE | 2021-01-07 15:32 | CM.DPC ---
Addendum entered by BALAJI Mcdermott 01/07/21 15:39: ADD: Return msg from [facility] stating they are accepting new admissions and pt likely would meet criteria and willing to review and request referral be faxed to [phone]. Ideally they would like pt to have PEG/Trach placed prior to d/c but not always a requirement. Her cell phone for the w/e is [phone]. EMILY faxed referral to review in case pt makes some improvements or decision made to transfer for higher level of care. BF Original Note: DCP Cont: Per MD, pt continues to be intubated and attempts made to wean him off dopamine and reduce his oxygen needs but pt continues to require dopamine and increased oxygen. Per RN and MD, family continues to want pt to be full code and pursue full treatment at this time. EMILY called [facility] to inquire about their bed availability and possibility of reviewing to determine if he meets criteria and left msg requesting call back. EMILY checked in with MD to determine if [facility] might be an option if he is accepted and MD feels pt too critically ill to transfer at this time if accepted at [facility]. Currently no known SNF's accepting COVID+ patients and son Salinas recently confirmed that pt and family would strongly attempt to avoid SNF if at all possible and preference is home. Plan: SW to follow closely towards determining if pt will begin to improve as his prognosis seems guarded at this time. BALAJI Mcdermott
[2021-01-07] MEDS: fentaNYL 1,000 MCG in DEXTROSE 5% IN WATER 230 ML 28.875 ML IV (18:30)
[2021-01-07] MEDS: INSULIN GLARGINE 100 UNIT/ML 3ML PEN 75 UNIT SUBCUT (20:59)
--- NOTE | 2021-01-07 23:03 | PM.ICURNDS ---
- Date Patient Seen: 01/07/21 Time Patient Seen: 23:02 :: This patient was seen via real time interactive two-way audiovisual telecommunication. Note: Labs/orders reviewed. FiO2 is at 50%. He is hyperglycemic and his SUBQ regimen will be adjusted. Case discussed with FIDENCIO Walter RN and RT. Patient remains FULL CODE.
[2021-01-08] VITALS (66 sets, daily range): BP systolic 107–194; BP diastolic 45–160; PULSE 44–83; RESP 0–20; TEMP 36.1–37.1; O2SAT 88–96
[2021-01-08] MEDS: INSULIN LISPRO 100 UNIT/ML 3ML VIAL SUBCUT ×4 (00:26→18:41)
[2021-01-08] MEDS: CHLORHEXIDINE GLUCONATE 15 ML CUP PO ×5 (01:22→23:52)
[2021-01-08] MEDS: fentaNYL 1,000 MCG in DEXTROSE 5% IN WATER 230 ML 28.875 ML IV ×2 (02:38→17:45)
[2021-01-08] MEDS: MIDAZOLAM 50 MG in DEXTROSE 5% IN WATER 240 ML 25 ML IV (04:45)
[2021-01-08 04:55] LABS: Hematocrit 33.6 % (41-53); Hemoglobin 10.9 g/dL (13.5-17.5); Mean Corpuscular HGB Conc 32.5 % (30-36); Mean Corpuscular Hemoglobin 27.7 PG (26-34); Mean Corpuscular Volume 85.4 fL (80-100); Platelet Count 363 X10^3/uL (150-400); Red Blood Cell Count 3.94 X10^6/uL (4.5-5.9); White Blood Cell Count 8.7 X10^3/uL (4.5-11.0)
[2021-01-08 05:01] LABS: BUN Creatinine Ratio 57.4 (6-22); Blood Urea Nitrogen 39 mg/dL (9-20); Carbon Dioxide 28 mmol/L (22-32); Chloride 104 mmol/L (98-107); Estimated Glomerular Filt Rate > 60.0 mL/min (>60); Glucose 280 mg/dL (80-110); HEMOLYSIS < 15 (0-50); Magnesium 2.8 mg/dL (1.6-2.3); Potassium 4.8 mmol/L (3.4-5.1); Sodium 135 mmol/L (137-145)
[2021-01-08 06:13] LABS: PCO2 ABG 36.6 mmHg (35-45); pH ABG 7.46 (7.35-7.45)
[2021-01-08 06:14] LABS: HCO3 ABG 26 mmol/L (22-26); Oxygen Saturation ABG 93 % (95-100); PO2 ABG 64 mmHg (80-100); TCO2 ABG 27 mmol/L (21-31)
--- NOTE | 2021-01-08 06:57 | RT ---
patient continued on current settings of Vt 440, rate of 20, breathing 20, FIO2 of 50% and PEEP of 10. BS occasionally course, suctioning mod amounts clear to creamy secretions from ET tube.Oral care given throughout shift. ABG drawn at 05t45 for PH 7.455, PCO2, 36.6, PO2 64, HCO3 25.7, B.E. 2 SPO2 93%. No changes at this time.
--- NOTE | 2021-01-08 08:00 | DI.RAD.S_ITS ---
PROCEDURE: XR CHEST 1V INDICATIONS: intubation TECHNIQUE: One view of the chest was acquired. COMPARISON: [facility], CR, XR CHEST 1V, 01/03/2021, 16:03. [facility], CR, XR CHEST 1V, 01/04/2021, 5:36. [facility], CR, XR CHEST 1V, 01/05/2021, 5:24. [facility], CR, XR CHEST 1V, 01/06/2021, 5:38. [facility], CR, XR CHEST 1V, 01/07/2021, 5:24. FINDINGS: Surgical changes and devices: An endotracheal tube is seen, with the tip 6-7 cm above the theresa. The weighted feeding tube is seen overlying the mid stomach. Lungs and pleura: Bilateral interstitial infiltrates are seen, which are slightly improved compared to the prior examination. Blunting of the costophrenic angles can be seen. No large pneumothorax is seen. Mediastinum: Mediastinal contours appear normal. Heart size is normal. Bones and chest wall: No suspicious bony lesions. Age-appropriate bony degenerative changes are seen. Overlying soft tissues appear unremarkable. IMPRESSION: The tip of the endotracheal tube is seen 6-7 cm above the theresa. Slightly bilateral interstitial type infiltrates. Dictated by: James Maurer M.D. on 01/08/2021 at 7:22 Approved by: James Maurer M.D. on 01/08/2021 at 7:25
[2021-01-08] MEDS: BARICITINIB 2 MG TABLET 4 MG PO (09:05)
[2021-01-08] MEDS: ENOXAPARIN 40 MG/0.4 ML SYRINGE SUBCUT ×2 (09:05→20:57)
[2021-01-08] MEDS: FAMOTIDINE 20 MG/2 ML VIAL IV ×2 (09:06→20:57)
[2021-01-08] MEDS: SODIUM CHLORIDE 0.9% FLUSH 10 ML IV (09:08)
[2021-01-08] MEDS: INSULIN GLARGINE 100 UNIT/ML 3ML PEN 75 UNIT SUBCUT (09:08)
[2021-01-08 10:53] LABS: Ionized Calcium 4.7 mg/dL (4.5-5.6)
--- NOTE | 2021-01-08 12:00 | PC.NURSE ---
Addendum entered by Sylvester Caputo R.N. 01/08/21 15:30: Patient taken down for CT scan as ordered, with RT, Oralia CLOTH HANDLER, and this RN. Patient tolerated well, Vital signs remained stable. Dopamine paused at 1430, and heart rate in 60's sinus rhythm. Patient settled back in room. Report given to oncoming shift. Addendum entered by Sylvester Caputo R.N. 01/08/21 13:16: All sedation medication remains off since sedation vacation trial started at 1130am. No meaningful movement to voice, touch or painful stimuli noted, Dr. Benavides notified of current status. Vent setting remain unchanged, noted at Fio2 50%, PEP 10, RR 20, tidal volume 440 at 92% Prior to sedation vacation patient with RASS score of -4, occasionally trying to move left arm or furrow brow. Versed was decreased to 2.5 mg/hr at 835am then to 2mg/hr at 10am and paused at 1030. Patient remained sedated. Dr. Benavides notified of decreased responses and attempts to decrease sedation accordingly. Heart rate remains SB/SR with dopamine infusing at 1.5mcg/kg/min (see MAR). Continue to monitor. Original Note: Sedation vacation attempted at 1130am.
--- NOTE | 2021-01-08 14:03 | DI.CT.S_ITS ---
PROCEDURE: CT HEAD/BRAIN WO CON INDICATIONS: unresponsive TECHNIQUE: Noncontrast 4.5 mm thick angled axial sections acquired from the foramen magnum to the vertex, with coronal and sagittal reformats. For radiation dose reduction, the following was used: automated exposure control, adjustment of mA and/or kV according to patient size. COMPARISON: [facility], CR, XR CHEST 1V, 01/08/2021, 7:49. FINDINGS: Image quality: This examination is limited by involuntary motion artifact. CSF spaces: Basal cisterns are patent. No extra-axial fluid collections. The ventricles are symmetric in size and shape. Brain: No intracranial bleeds or masses. There is cerebral volume loss for age, with resultant ventricular and sulcal prominence. There are periventricular and deep white matter chronic small vessel ischemic changes. There is intracranial internal carotid artery atherosclerosis. Skull and face: Calvarium and visualized facial bones appear intact, without suspicious lesions. Sinuses: Visualized sinuses and mastoids are clear. Mild rightward nasal septal deviation can be seen. A left-sided nasogastric feeding tube can be seen. IMPRESSION: Limited study demonstrating no acute intracranial process. Note is made of age-appropriate brain parenchymal volume loss and chronic small vessel ischemic changes. Incidental note is made of: Left-sided nasogastric feeding tube Dictated by: James Maurer M.D. on 01/08/2021 at 14:00 Approved by: James Maurer M.D. on 01/08/2021 at 14:01
--- NOTE | 2021-01-08 17:19 | PM.PN.1 ---
Subjective Subjective Date Patient Seen: 01/08/21 Time Patient Seen: 08:00 Interval history: Patient continues on stable settings. Tube adjusted slightly this morning to 26 at the lips. Patient is not breathing over the vent. He is not responsive. Sedation has been discontinued to evaluate his response. Exam Vital Signs (past 8 hours): - 01/08/21 09:49 01/08/21 11:00 01/08/21 12:00 Temperature Pulse Rate 78 58 L 60 Respiratory Rate 20 20 20 Blood Pressure 139/65 194/77 H 146/67 H Pulse Oximetry 93 93 92 01/08/21 13:01 01/08/21 14:00 01/08/21 15:01 Temperature 98.8 F 98.8 F Pulse Rate 67 57 L 74 Respiratory Rate 20 20 20 Blood Pressure 167/70 H 143/65 H 172/74 H Pulse Oximetry 90 L 91 94 01/08/21 15:04 01/08/21 15:09 01/08/21 15:30 Temperature Pulse Rate 83 71 68 Respiratory Rate 17 20 20 Blood Pressure 180/82 H 170/74 H Pulse Oximetry 92 93 91 01/08/21 16:12 Temperature 97 F L Pulse Rate 67 Respiratory Rate 20 Blood Pressure 165/160 H Pulse Oximetry 92 Fraction of Inspired Oxygen 50 SaO2/FiO2 Ratio 227 Oxygen Delivery Method Mechanical Ventilation Oxygen Flow Rate 50 Narrative Exam Narrative: GEN: obese male, intubated and sedated. HEENT: MMM, OG tube in place. CV: regular rate and rhythm, no murmurs PULM: bibasilar rhonchi, L > R. ABD: soft, non-distended SKIN: intertrigo in skin folds Ext: no edema or joint effusions, extremities warm and well perfused NEURO: sedated, PERRL : rao in place Objective Labs Result Diagrams: 01/08/21 04:25 01/08/21 04:25 Labs: Laboratory Results - last 24 hr 01/06/21 01/06/21 01/08/21 21:05 21:15 04:25 WBC 8.7 RBC 3.94 L Hgb 10.9 L Hct 33.6 L MCV 85.4 MCH 27.7 MCHC 32.5 RDW 16.0 H Plt Count 363 ABG pH 7.41 ABG pCO2 32.2 L ABG pO2 58 L ABG HCO3 21 L ABG Total CO2 22 ABG O2 Saturation 90 L ABG Base Excess -4.0 L FiO2 40 Sodium Potassium Chloride Carbon Dioxide BUN Creatinine Estimated GFR BUN/Creatinine Ratio Glucose Calcium Ionized Calcium [place] 4.7 Magnesium 01/08/21 01/08/21 04:25 05:55 WBC RBC Hgb Hct MCV MCH MCHC RDW Plt Count ABG pH 7.46 H ABG pCO2 36.6 ABG pO2 64 L ABG HCO3 26 ABG Total CO2 27 ABG O2 Saturation 93 L ABG Base Excess 2.0 FiO2 Sodium 135 L Potassium 4.8 Chloride 104 Carbon Dioxide 28 BUN 39 H Creatinine 0.68 Estimated GFR > 60.0 BUN/Creatinine Ratio 57.4 H Glucose 280 H Calcium 8.0 L Ionized Calcium [place] Magnesium 2.8 H [facility] Medical History (Updated 01/01/21 @ 16:05 by Romeo Linn DO) HLD (hyperlipidemia) HTN (hypertension) Type 2 diabetes mellitus Social History household members: children Assessment & Plan Assessment & Plan narrative: 1. COVID-19 pneumonia with acute hypoxic respiratory failure -unvaccinated male, COVID positive with bilateral consolidation on outside CT. elevated ESR, CRP, D-dimer. patient presented moderately ill with hypoxia on presentation, cough, profound weakness, and diarrhea as well as noted in acute renal failure -provide supplemental O2, since admission oxygen requirements were worsening. was advanced slowly, attempted precedex to avoid intubation, however ultimately worsened to point of needing intubation late on 01/02. Continue mechanical ventilation, appreciate tele-portfolio accountant assistance. -dexamethasone 6 mg IV q.d -remdesivir 200 mg x 1 then 100 mg IV q.d. x4 days. Now complete -baricitinib started 12/31 after advancing to heated high flow. Continue x14 days. -continue sedation with versed and fentanyl, when waking he desaturates. PO2 improved on ABG. continue to wean as tolerated. -currently on fentanyl, versed with bradycardia and mildly elevated triglycerides -discontinued propofol due to bradycardia, which had no significant effect on heart rate -continue dopamine for now for MAP>65, and for bradycardia -OG tube with tube feeds, currently with high residuals so still below goal -attempted weaning of vent and diuresis to improve respiratory status with little change 2. Acute metabolic encephalopathy, -patient presented with confusion in setting of hypoxia, NIXON, COVID pneumonia and UTI. Initially improved but worsened on 01/02. -worsening likely hospital induced delirium and worsening hypoxia. Attempted haldol, ativan without much help. Tried fentanyl, and precedex for sedation in hopes to avoid intubation however these were unsuccessful and patient continued to decline -01/08 patient noted to be unresponsive and sedation able to be weaned down, still not responding, CT head ordered for further evaluation 3. Urinary tract infection, resolved -outside UA with many bacteria and WBC, culture with citrobacter sens. to ceftriaxone. -continue Rocephin 1 g IV q.d. started at outside hospital, duration 7 days 4. Chronic urinary retention with bilateral hydronephrosis on CT -Rao placed at outside ED, manage Rao -started tamsulosin 0.4 mg q.d. with attempted trial of Rao removal in 1-2 weeks 5. 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 and metformin 850 mg t.i.d. -continue to increase lantus due to hyperglycemia 6. Acute kidney injury, resolved -likely prerenal due to diarrhea associated with COVID, possible obstructive component as well. -serum creatinine 3.2 at outside ED, baseline creatinine appears 1.48 from April 2019, improved to 0.68 now. -can stop IV fluids with tube feedings to start today 7. Hypertension -holding patient's lisinopril and furosemide due to initial NIXON -holding medications now while sedated. 8. History of TIA -continued patient's clopidogrel 75 mg q.d. and atorvastatin 80 mg q.p.m. Plavix recommended to be held by tele-portfolio accountant while on BID lovenox. Lines: R radial arterial line, placed 01/03. Midline L arm. OG tube. Rao. GI ppx: Famotidine 20 mg IV BID DVT prophylaxis:? Lovenox, 40 BID for obesity. Code status:? Full code per wishes expressed by patient at time of admission, rediscussed day prior to intubation and he remained full code. He would not want tracheostomy per discussions with Dr. Linn Surrogate decision maker: SonRanjit Time Spent With Patient Critical Care time: I spent a total of [] minutes of critical care time on this patient's care today; this time is exclusive of procedural time.
[2021-01-08] MEDS: INSULIN GLARGINE 100 UNIT/ML 3ML PEN 80 UNIT SUBCUT (20:58)
--- NOTE | 2021-01-08 21:31 | PM.ICURNDS ---
- Date Patient Seen: 01/08/21 Time Patient Seen: 21:34 :: This patient was seen via real time interactive two-way audiovisual telecommunication. Note: Patient has a sedation holiday today. Due to delayed emergence, he had a head CT scan which ws (-). He eventually achieved a RASS of -3 and was resedated with midazolam and fentanyl infusions. He remains on/off low dose dopamine due to bradycardia. Glycemic control remains suboptimal. INTERVENTIONS -Would change midazolam to propofol given today's delayed emergence and midazolam's delirium risk -Insulin therapy will be adjusted Plans discussed with FIDENCIO Walter RN and RT.
[2021-01-08] MEDS: propofoL 1,000 MG/100 ML VIAL 3.501 MG IV (22:00)
[2021-01-08] MEDS: fentaNYL 1,000 MCG in DEXTROSE 5% IN WATER 230 ML 57.75 ML IV (22:24)
--- NOTE | 2021-01-08 22:49 | PC.NURSE ---
~1500: Patient just returned from CT and did not have any drips going. Goal was to see how patient responded to sedation vacation. Patient unresponsive but pupils equal and reactive to light. ~1700: Patient able to squeeze hands when directed and raising eyebrows when asked to open eyes. Talked with patient's son, updated on condition and plan of treatment. ~1745: Patient's HR and BP elevated. Restarted fentanyl and versed drip after discussing with MD. ~1830: Patient making multiple attempts to grab at ET tube, BP in 190's systolic. Increased fentanyl and versed ~1999: Rounds with teleICU Dr. Barillas. HR has decreased to 40's. Decision made to switch versed back to propofol. ~2230: Patient titrated off versed and now on 25 mcg/kg/min of propofol. HR remains in 40's, BP holding steady MAP in 70's.
[2021-01-09] VITALS (76 sets, daily range): BP systolic 100–190; BP diastolic 45–85; PULSE 43–115; RESP 4–25; TEMP 37.4–38.3; O2SAT 85–99
[2021-01-09] MEDS: LACTATED RINGERS 250 ML 1000 ML IV (01:39)
--- NOTE | 2021-01-09 01:57 | PC.NURSE ---
Shift Notes-Patient is sedated with RASS -3 to -4, propofol decreased to 20mcg/min, Fentanyl decreased to 1.5mcg/kg/min. Patient did not have much response during turning and changing brief d/t incontinence of large loose stool. Tube feed residual is 160ml, continue at current rate of 45ml/hr. Patient's UOP has been 30ml since 2329, informed MOTORS AND CONTROLS TESTER who suggest I notify Dr Barillas with [employer], message left. LR bolus of 250ml started per JUN prn order.
[2021-01-09] MEDS: propofoL 1,000 MG/100 ML VIAL 10.503 MG IV ×2 (02:56→14:53)
[2021-01-09] MEDS: fentaNYL 1,000 MCG in DEXTROSE 5% IN WATER 230 ML 37.538 ML IV (02:57)
[2021-01-09] MEDS: CHLORHEXIDINE GLUCONATE 15 ML CUP PO ×4 (05:23→23:55)
[2021-01-09 06:04] LABS: Hematocrit 32.2 % (41-53); Hemoglobin 10.4 g/dL (13.5-17.5); Mean Corpuscular HGB Conc 32.4 % (30-36); Mean Corpuscular Hemoglobin 27.5 PG (26-34); Mean Corpuscular Volume 85.1 fL (80-100); Platelet Count 334 X10^3/uL (150-400); Red Blood Cell Count 3.78 X10^6/uL (4.5-5.9); Red Cell Distribution Width 15.6 % (11.6-14.8); White Blood Cell Count 10.5 X10^3/uL (4.5-11.0)
[2021-01-09 06:14] LABS: BUN Creatinine Ratio 56.5 (6-22); Blood Urea Nitrogen 39 mg/dL (9-20); Calcium 7.8 mg/dL (8.4-10.2); Carbon Dioxide 28 mmol/L (22-32); Chloride 103 mmol/L (98-107); Estimated Glomerular Filt Rate > 60.0 mL/min (>60); Glucose 131 mg/dL (80-110); HEMOLYSIS < 15 (0-50); Sodium 135 mmol/L (137-145)
[2021-01-09 06:22] LABS: pH ABG 7.43 (7.35-7.45)
[2021-01-09 06:26] LABS: HCO3 ABG 26 mmol/L (22-26); Oxygen Saturation ABG 91 % (95-100); PCO2 ABG 38.8 mmHg (35-45); PO2 ABG 60 mmHg (80-100); TCO2 ABG 27 mmol/L (21-31)
[2021-01-09 06:27] LABS: Fractionated Inspired Oxygen 45
[2021-01-09] MEDS: INSULIN LISPRO 100 UNIT/ML 3ML VIAL SUBCUT (06:45)
--- NOTE | 2021-01-09 08:00 | DI.RAD.S_ITS ---
PROCEDURE: XR CHEST 1V INDICATIONS: intubation TECHNIQUE: One view of the chest was acquired. COMPARISON: [facility], CR, XR CHEST 1V, 01/06/2021, 5:38. [facility], CR, XR CHEST 1V, 01/07/2021, 5:24. [facility], CR, XR CHEST 1V, 01/08/2021, 7:49. FINDINGS: Surgical changes and devices: An endotracheal tube is seen, with the tip 6 cm above the theresa. A feeding tube is present, which appears obscured. Lungs and pleura: An incomplete inspiratory result is noted, causing a crowded appearance to the lung markings. Patchy interstitial infiltrates are seen. No pneumothorax or significant pleural effusions are seen. Mediastinum: Mediastinal contours appear normal. Heart size is normal. Bones and chest wall: No suspicious bony lesions. Overlying soft tissues appear unremarkable. IMPRESSION: The tip of the endotracheal tube is seen 6 cm above the theresa. Stable bilateral interstitial type infiltrates are seen. Dictated by: James Maurer M.D. on 01/09/2021 at 7:30 Approved by: James Maurer M.D. on 01/09/2021 at 7:31
--- NOTE | 2021-01-09 08:53 | PC.NURSE ---
Addendum entered by Sylvester Caputo R.N. 01/09/21 12:39: Temp 100.6 after tylenol suspension given as ordered. Antibiotics infusing as ordered. Sedation vacation attempted at 12noon, patient moving left arm mostly towards tubes and furrows brows with movement. Sedation restarted as ordered, patient now resting comfortably. Vent settings changed by RT noted at Fio2 50%, PEP 12, RR 20, TV 440, currently 91%. Continue to monitor. Addendum entered by Sylvester Caputo R.N. 01/09/21 10:31: O2 saturation decreased to 85-88%, RT to bedside, suctioned and increased Fio2 to 50 and then 55% to maintain appropriate o2 levels. Currently 90% on vent settings fio2 55%, PEP 10, RR 20, TV 440. Temp continues to increase, noted at 100.9, Dr. Benavides notified. Original Note: Urine, sputum, and 1 set of blood cultures from line sent as ordered. Patient on fentanyl 1.5mcg/kg/hr and propofol 20mcg/kg/min for sedation and turns head towards voice and attempting to move left arm at times, with RASS score of -3 this morning. Patient's son called to check on him, updated on new orders. Continue with plan of care.
[2021-01-09] MEDS: propofoL 1,000 MG/100 ML VIAL 14.004 MG IV (09:29)
[2021-01-09] MEDS: BARICITINIB 2 MG TABLET 4 MG PO (09:29)
[2021-01-09] MEDS: FAMOTIDINE 20 MG/2 ML VIAL IV ×2 (09:29→21:51)
[2021-01-09] MEDS: ENOXAPARIN 40 MG/0.4 ML SYRINGE SUBCUT ×2 (09:31→21:51)
[2021-01-09] MEDS: INSULIN GLARGINE 100 UNIT/ML 3ML PEN 85 UNIT SUBCUT ×2 (09:33→21:51)
[2021-01-09 09:47] LABS: Appearance Urine UA CLEAR; Bilirubin Urine UA Negative (NEGATIVE); Color Urine UA YELLOW; Glucose Urine UA TRACE g/dL (Negative); Ketones Urine UA NEGATIVE (NEGATIVE); Leukocyte Esterase Urine UA NEGATIVE (NEGATIVE); Nitrite Urine UA NEGATIVE (Negative); Occult Blood Urine UA Negative (Negative); Protein Urine UA NEGATIVE (Negative); RBC Urine None Seen (0-5/HPF); Urobilinogen Urine UA 0.2 E.U./dL (0.2); WBC Urine 5-10/HPF (0-5/HPF); pH Urine UA 5.5 (4.5-8.0)
[2021-01-09 09:48] LABS: Bacteria Urine Few (2-10); Culture Indicated Urine Specimen Cultured; Renal Epithelial Cells Urine 0-1/HPF (0-1/HPF); Squamous Epithelial Cell Urine 0-1 /HPF (0-5/HPF); Transitional Epi Cells Urine 0-1/HPF (0-5/HPF)
[2021-01-09] MEDS: SODIUM CHLORIDE 0.9% 250 ML 21 ML IV (10:42)
[2021-01-09] MEDS: PIPERACILLIN/TAZO 4.5 GM in SODIUM CHLORIDE 0.9% 100 ML 200 ML IV (10:43)
[2021-01-09] MEDS: fentaNYL 1,000 MCG in DEXTROSE 5% IN WATER 230 ML 43.313 ML IV (10:43)
[2021-01-09] MEDS: ACETAMINOPHEN SUSP 650 MG/20.3 ML UDC PO (11:05)
[2021-01-09] MEDS: VANCOMYCIN 3,000 MG/600 ML PIGGYBACK 200 MG IV (11:48)
--- NOTE | 2021-01-09 12:17 | PM.PN.1 ---
Subjective Subjective Date Patient Seen: 01/09/21 Time Patient Seen: 08:00 Interval history: Yesterday he did begin to become more active after the midazolam was held for several hours. CT head showed no acute process. He had versed discontinued and was swtiched to propofol. He remained on fentanyl and off dopamine. This morning he is having low grade fevers. He has thick sputum that is suctioned. He did desaturate slightly and FiO2 was increased with improvement. PEEP trial is planned. Exam Vital Signs (past 8 hours): - 01/09/21 04:30 01/09/21 04:45 01/09/21 05:00 Temperature 100.0 F H 100.2 F H 100.2 F H Pulse Rate 50 L 50 L 51 L Respiratory Rate 20 20 20 Blood Pressure 140/64 140/64 137/63 Pulse Oximetry 97 96 96 01/09/21 05:15 01/09/21 05:30 01/09/21 05:45 Temperature 100.2 F H 100.2 F H 100.2 F H Pulse Rate 51 L 51 L 52 L Respiratory Rate 20 20 20 Blood Pressure 148/66 H 135/63 135/57 L Pulse Oximetry 97 96 96 01/09/21 06:00 01/09/21 06:15 01/09/21 06:30 Temperature 100.2 F H 100.2 F H 100.0 F H Pulse Rate 51 L 50 L 49 L Respiratory Rate 20 20 20 Blood Pressure 139/66 135/60 134/63 Pulse Oximetry 96 97 96 01/09/21 06:45 01/09/21 07:00 01/09/21 07:15 Temperature 100.0 F H 100.0 F H 100.2 F H Pulse Rate 49 L 50 L 49 L Respiratory Rate 20 20 20 Blood Pressure 136/59 L 136/63 139/64 Pulse Oximetry 96 96 94 01/09/21 07:45 01/09/21 08:00 01/09/21 09:00 Temperature 100.2 F H 100.2 F H 100.2 F H Pulse Rate 57 L 52 L 85 Respiratory Rate 20 20 19 Blood Pressure 143/65 H 141/63 H 185/77 H Pulse Oximetry 95 91 86 L 01/09/21 09:30 01/09/21 10:00 01/09/21 11:05 Temperature 100.6 F H 100.8 F H 100.7 F H Pulse Rate 85 Respiratory Rate 18 18 Blood Pressure 167/74 H 190/77 H Pulse Oximetry 89 L 90 L Fraction of Inspired Oxygen 40 SaO2/FiO2 Ratio 227 Oxygen Delivery Method Mechanical Ventilation Oxygen Flow Rate 50 Narrative Exam Narrative: GEN: obese male, intubated and sedated. HEENT: MMM, OG tube in place. CV: regular rate and rhythm, no murmurs PULM: bibasilar rhonchi, L > R. ABD: soft, non-distended SKIN: intertrigo in skin folds Ext: no edema or joint effusions, extremities warm and well perfused NEURO: sedated, PERRL : rao in place Objective Labs Result Diagrams: 01/09/21 05:15 01/09/21 05:15 Labs: Laboratory Results - last 24 hr 01/09/21 01/09/21 01/09/21 05:15 05:15 05:50 WBC 10.5 RBC 3.78 L Hgb 10.4 L Hct 32.2 L MCV 85.1 MCH 27.5 MCHC 32.4 RDW 15.6 H Plt Count 334 ABG pH 7.43 ABG pCO2 38.8 ABG pO2 60 L ABG HCO3 26 ABG Total CO2 27 ABG O2 Saturation 91 L ABG Base Excess 1.0 FiO2 45 Sodium 135 L Potassium 4.0 Chloride 103 Carbon Dioxide 28 BUN 39 H Creatinine 0.69 Estimated GFR > 60.0 BUN/Creatinine Ratio 56.5 H Glucose 131 H D Calcium 7.8 L Urine Color Urine Appearance Urine pH Ur Specific Barlow Urine Protein Urine Glucose (UA) Urine Ketones Urine Occult Blood Urine Nitrate Urine Bilirubin Urine Urobilinogen Ur Leukocyte Esterase Urine RBC Urine WBC Ur Squamous Epith Cells Ur Transition Epith Cell Ur Renal Epithelial Cell Urine Bacteria Ur Culture Indicated? 01/09/21 07:53 WBC RBC Hgb Hct MCV MCH MCHC RDW Plt Count ABG pH ABG pCO2 ABG pO2 ABG HCO3 ABG Total CO2 ABG O2 Saturation ABG Base Excess FiO2 Sodium Potassium Chloride Carbon Dioxide BUN Creatinine Estimated GFR BUN/Creatinine Ratio Glucose Calcium Urine Color Yellow Urine Appearance Clear Urine pH 5.5 Ur Specific Barlow 1.010 Urine Protein Negative Urine Glucose (UA) Trace H Urine Ketones Negative Urine Occult Blood Negative Urine Nitrate Negative Urine Bilirubin Negative Urine Urobilinogen 0.2 Ur Leukocyte Esterase Negative Urine RBC None seen Urine WBC 5-10/hpf H Ur Squamous Epith Cells 0-1 /hpf Ur Transition Epith Cell 0-1/hpf Ur Renal Epithelial Cell 0-1/hpf Urine Bacteria Few (2-10) H Ur Culture Indicated? Specimen cultured [facility] Medical History (Updated 01/01/21 @ 16:05 by Romeo Linn, ) HLD (hyperlipidemia) HTN (hypertension) Type 2 diabetes mellitus Social History household members: children Assessment & Plan Assessment & Plan narrative: 1. COVID-19 pneumonia with acute hypoxic respiratory failure -unvaccinated male, COVID positive with bilateral consolidation on outside CT. elevated ESR, CRP, D-dimer. patient presented moderately ill with hypoxia on presentation, cough, profound weakness, and diarrhea as well as noted in acute renal failure -provide supplemental O2, since admission oxygen requirements were worsening. was advanced slowly, attempted precedex to avoid intubation, however ultimately worsened to point of needing intubation late on 01/02. Continue mechanical ventilation, appreciate tele-central office installer assistance. -dexamethasone 6 mg IV q.d -remdesivir 200 mg x 1 then 100 mg IV q.d. x4 days. Now complete -baricitinib started 12/31 after advancing to heated high flow. Continue x14 days. -continue sedation with propofol and fentanyl, when waking he desaturates. -currently off dopamine for bradycardia -OG tube with tube feeds, currently with high residuals so still below goal -attempted weaning of vent and diuresis to improve respiratory status with little change 2. Fever -developed fever on 01/09 -concern for possible bacterial infection -sputum, blood, urine cultures sent and pending -ordered for vancomycin/zosyn -procalcitonin ordered -sputum produced is thick -chest xray appears largely unchanged 3. Acute metabolic encephalopathy, delirium from versed -patient presented with confusion in setting of hypoxia, NIXON, COVID pneumonia and UTI. Initially improved but worsened on 01/02. -worsening likely hospital induced delirium and worsening hypoxia. Attempted haldol, ativan without much help. Tried fentanyl, and precedex for sedation in hopes to avoid intubation however these were unsuccessful and patient continued to decline -01/08 patient noted to be unresponsive and sedation able to be weaned down, still not responding, CT head ordered for further evaluation and was negative -switched to propofol from versed due to prolonged sedation time 4. Urinary tract infection, resolved -completed 7 days of ceftriaxone 5. Chronic urinary retention with bilateral hydronephrosis on CT -Rao placed at outside ED, manage Rao -started tamsulosin 0.4 mg daily 5. 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 and metformin 850 mg t.i.d. -continue to increase lantus due to hyperglycemia, now at 85u bid 6. Acute kidney injury, resolved -likely prerenal due to diarrhea associated with COVID, possible obstructive component as well. -serum creatinine 3.2 at outside ED, baseline creatinine appears 1.48 from April 2019, improved to 0.68 now. -can stop IV fluids with tube feedings to start today 7. Hypertension -holding patient's lisinopril and furosemide due to initial NIXON -holding medications now while intubated 8. History of TIA -continued patient's clopidogrel 75 mg q.d. and atorvastatin 80 mg q.p.m. Plavix recommended to be held by tele-central office installer while on BID lovenox. Lines: R radial arterial line, placed 01/03. Midline L arm. OG tube. Rao. GI ppx: Famotidine 20 mg IV BID DVT prophylaxis: Lovenox, 40 BID for obesity. Code status: Full code per wishes expressed by patient at time of admission, rediscussed day prior to intubation and he remained full code. He would not want tracheostomy per discussions with Dr. Linn Surrogate decision maker: Ranjit Jolly Time Spent With Patient Critical Care time: I spent a total of [] minutes of critical care time on this patient's care today; this time is exclusive of procedural time.
[2021-01-09] MEDS: PIPERACILLIN/TAZO 3.375 GM in SODIUM CHLORIDE 0.9% 100 ML 25 ML IV ×2 (15:19→21:51)
[2021-01-09] MEDS: DOPAMINE HCL IN DEXTROSE 5 % 400 MG/250 ML PLAST..BAG IV (16:15)
[2021-01-09] MEDS: fentaNYL 1,000 MCG in DEXTROSE 5% IN WATER 230 ML 57.75 ML IV (18:59)
--- NOTE | 2021-01-09 20:36 | PM.ICURNDS ---
- Date Patient Seen: 01/09/21 Time Patient Seen: 20:30 :: This patient was seen via real time interactive two-way audiovisual telecommunication. Note: Glycemi control somewhat erratic but overall trend improved. Continues on AC 440 RR 20 FiO2 45% PEEP 10. Had a brief SAT today and may have followed commands; had a brief SBT as well. I/Os trended has been (+) for ast 48H and has some peripheral edema despite static recorded weights. Tolerating EN. INTERVENTIONS 1) Ordered furosemide 10 mg IV q6H 2) RN instructed to maximize propofol and minimize fentanyl; we may need to change fentanyl to IVP given BMI/age in order to maximize probability of SAT/SBT success; Precedex may be another option within next 24-48H 3) Continue daily SAT/SBT 4) Wean PEEP to 8 in AM if AM ABG acceptable Discussed with RN and RT.
[2021-01-09] MEDS: SODIUM CHLORIDE 0.9% FLUSH 10 ML IV (21:51)
[2021-01-09] MEDS: NYSTATIN POWDER 15GM 1 APPLIC TOP (21:55)
[2021-01-09] MEDS: propofoL 1,000 MG/100 ML VIAL 35.01 MG IV (23:42)
[2021-01-09] MEDS: FUROSEMIDE 20 MG/2 ML VIAL 10 MG IV (23:55)
[2021-01-10] VITALS (90 sets, daily range): BP systolic 93–217; BP diastolic 34–107; PULSE 52–110; RESP 16–24; TEMP 37.6–38.3; O2SAT 84–97
[2021-01-10] MEDS: SODIUM CHLORIDE 0.9% 250 ML 21 ML IV ×2 (00:38→12:34)
[2021-01-10 00:40] LABS: Vancomycin Trough 18.4 ug/mL (10-20)
[2021-01-10] MEDS: VANCOMYCIN 1,500 MG/300 ML PIGGYBACK 150 MG IV (01:00)
[2021-01-10] MEDS: fentaNYL 1,000 MCG in DEXTROSE 5% IN WATER 230 ML 43.313 ML IV (01:00)
[2021-01-10] MEDS: ACETAMINOPHEN SUSP 650 MG/20.3 ML UDC PO ×3 (01:53→17:45)
[2021-01-10] MEDS: propofoL 1,000 MG/100 ML VIAL 17.505 MG IV ×3 (02:22→12:31)
[2021-01-10 04:35] LABS: Hematocrit 32.2 % (41-53); Mean Corpuscular HGB Conc 31.1 % (30-36); Mean Corpuscular Hemoglobin 26.7 PG (26-34); Mean Corpuscular Volume 85.9 fL (80-100); Platelet Count 342 X10^3/uL (150-400); Red Blood Cell Count 3.75 X10^6/uL (4.5-5.9); Red Cell Distribution Width 16.1 % (11.6-14.8); White Blood Cell Count 13.2 X10^3/uL (4.5-11.0)
[2021-01-10 04:45] LABS: Lipase 15 U/L (23-300)
[2021-01-10 04:50] LABS: Alanine Aminotransferase 79 IU/L (<50); Albumin 2.6 g/dL (3.5-5.0); Albumin Globulin Ratio 0.9 (1.0-2.8); Alkaline Phosphatase 94 U/L (38-126); Aspartate Aminotransferase 45 IU/L (17-59); BUN Creatinine Ratio 40.2 (6-22); Bilirubin Total 0.2 mg/dL (0.2-1.3); Bilirubin Unconjugated 0.1 mg/dL (0.0-1.1); Blood Urea Nitrogen 39 mg/dL (9-20); Calcium 7.5 mg/dL (8.4-10.2); Carbon Dioxide 26 mmol/L (22-32); Chloride 103 mmol/L (98-107); Estimated Glomerular Filt Rate > 60.0 mL/min (>60); Globulin 2.8 g/dL (1.7-4.1); Glucose 98 mg/dL (80-110); HEMOLYSIS < 15 (0-50); Potassium 3.7 mmol/L (3.4-5.1); Sodium 135 mmol/L (137-145); Total Protein 5.4 g/dL (6.3-8.2); Triglycerides 104 mg/dL (35-150)
[2021-01-10 05:04] LABS: Procalcitonin 0.18 ng/mL (<0.5)
[2021-01-10 05:12] LABS: Fractionated Inspired Oxygen 60; HCO3 ABG 25 mmol/L (22-26); Oxygen Saturation ABG 96 % (95-100); PCO2 ABG 42.6 mmHg (35-45); PO2 ABG 83 mmHg (80-100); TCO2 ABG 27 mmol/L (21-31); pH ABG 7.38 (7.35-7.45)
[2021-01-10] MEDS: PIPERACILLIN/TAZO 3.375 GM in SODIUM CHLORIDE 0.9% 100 ML 25 ML IV ×3 (05:50→21:29)
[2021-01-10] MEDS: FUROSEMIDE 20 MG/2 ML VIAL 10 MG IV ×3 (05:50→17:45)
[2021-01-10] MEDS: CHLORHEXIDINE GLUCONATE 15 ML CUP PO ×4 (05:50→23:45)
[2021-01-10] MEDS: BARICITINIB 2 MG TABLET 4 MG PO (07:51)
[2021-01-10] MEDS: FAMOTIDINE 20 MG/2 ML VIAL IV ×2 (07:51→21:29)
[2021-01-10] MEDS: ENOXAPARIN 40 MG/0.4 ML SYRINGE SUBCUT ×2 (07:51→21:29)
[2021-01-10] MEDS: SODIUM CHLORIDE 0.9% FLUSH 10 ML IV ×2 (07:52→21:29)
[2021-01-10] MEDS: INSULIN GLARGINE 100 UNIT/ML 3ML PEN 85 UNIT SUBCUT ×2 (07:56→21:30)
--- NOTE | 2021-01-10 08:00 | DI.RAD.S_ITS ---
PROCEDURE: XR CHEST 1V INDICATIONS: intubation TECHNIQUE: One view of the chest was acquired. COMPARISON: [facility], CR, XR CHEST 1V, 01/01/2021, 6:33. [facility], CR, XR CHEST 1V, 01/06/2021, 5:38. [facility], CR, XR CHEST 1V, 01/09/2021, 8:18. FINDINGS: Surgical changes and devices: ETT tip projected 4.4 cm above the theresa. Lungs and pleura: Diffuse, widespread bilateral interstitial and airspace opacities are present which appears similar prior examination. No definite pleural effusion or pneumothorax. Mediastinum: Mediastinal contours appear normal. Heart size is normal. Bones and chest wall: No suspicious bony lesions. Overlying soft tissues appear unremarkable. IMPRESSION: 1. ETT tip projected 4.4 cm above the theresa. 2. Bilateral interstitial and of the liver opacities appearing similar to prior examination suggesting of bilateral pneumonia. Dictated by: Lior Sandoval [facility] Interpreted: Ifrah Quijano MD on 01/10/2021 at 8:24 Approved by: Ifrah Quijano MD, PhD on 01/10/2021 at 11:02
--- NOTE | 2021-01-10 09:21 | CM.DPNOTE ---
Faxed Updated clinicals to [facility] [phone], ml [facility]. Lauren Fierro CM Asst.
--- NOTE | 2021-01-10 11:48 | CM.DPC ---
DCP/Continued: Reviewed chart. Patient remains on vent. Received call from Joanna from [facility] requesting additional records be sent. Notified TREVON/Lauren. In addition, Joanna inquiring about when patient will be undergoing a trach/PEG to be accepted at [facility]. As of tomorrow he will be on vent x14dys which usually is benchmark for exploring other options such as vent. REHABILITATION TECHNICIAN notified Dr. Campbell and provided her with [facility] accepting providers phone number (Dr. Gutierrez ph# [phone]. Dr. Campbell plans to follow up with family to day re: next steps. P: Pending. BALAJI De Jesus
--- NOTE | 2021-01-10 12:16 | DIET.PN1 ---
Dietary Progress Note RD f/u on pt who has been on ventilatory x14d for covid pneumonia. Pt tolerating TF at goal rate (Glucerna 1.5 45mL/h continuous). Lantus 85U BID keeping BGs in target range (<200 for two days now, previously >200). Ht: 177.8 cm Wt: 114 kg BMI: 35.2 Last BM: 01/10/21 (01/10/21 10:26) MNA: 10 Jack Score: 10 Diet: 01/06/21 Dinner Tube Feeding Diet Diet Modifications: TF Supplement type: Glucerna 1.5 rita TF mode of delivery: Continuous Starting flow rate mL/hr: 45 Flow rate goal mL/hr: 45 Titration Schedule to reach Goal Rate: start at goal Max total daily volume in mL: 3,200 Free fluid: 350 Free Water Frequency: Q4H Comment: 350ml Q6 hours water flush Nutrition Type of Feeding Tube Dobhoff 01/10/21 08:22 Type of Feeding Tube Dobhoff 01/10/21 06:00 Type of Feeding Tube Dobhoff 01/09/21 19:30 Type of Feeding Tube Dobhoff 01/09/21 16:00 Type of Feeding Tube Dobhoff 01/09/21 06:00 Type of Feeding Tube Dobhoff 01/09/21 00:00 Type of Feeding Tube Dobhoff 01/08/21 20:00 Type of Feeding Tube Dobhoff 01/08/21 16:00 Labs: RBC 3.75 X10^6/uL (4.5-5.9) L 01/10/21 04:00 Hgb 10.0 g/dL (13.5-17.5) L 01/10/21 04:00 Hct 32.2 % (41-53) L 01/10/21 04:00 Creatinine 0.97 mg/dL (0.66-1.25) 01/10/21 04:00 Hemoglobin A1c 10.7 % (4.0-6.0) H 12/28/20 19:20 Monitoring/Evaluations: TF tolerance and rate, POC
[2021-01-10] MEDS: VANCOMYCIN 1,500 MG/300 ML PIGGYBACK 200 MG IV (12:25)
--- NOTE | 2021-01-10 14:18 | PM.PN.1 ---
Subjective Subjective Interval history: The patient is an 80-year-old male who is on hospital day 13 for acute respiratory failure secondary to COVID pneumonia. Patient is intubated and sedated. His PEEP has been tapered down to 4, he is on a FiO2 of 0.45. The patient's propofol and fentanyl will be held. A spontaneous breathing trial will be obtained today in addition to an ABG. If the patient is ready will consider extubation. Patient continues to have low-grade fever, with a maximum temperature of 100.8?. Patient has been bradycardic. However he was tapered off dopamine with improvement of his heart rate most recently 93 Exam Vital Signs (past 8 hours): - 01/10/21 06:30 01/10/21 06:45 01/10/21 07:00 Temperature 100.6 F H 100.8 F H 100.8 F H Pulse Rate 71 59 L 53 L Respiratory Rate 20 20 20 Blood Pressure 117/59 L 93/40 L 104/53 L Pulse Oximetry 93 95 96 01/10/21 07:15 01/10/21 07:53 01/10/21 09:45 Temperature 100.8 F H 100.4 F H 100.2 F H Pulse Rate 56 L Respiratory Rate 20 Blood Pressure Pulse Oximetry 95 01/10/21 12:00 Temperature 99.9 F H Pulse Rate 93 H Respiratory Rate 20 Blood Pressure 160/66 H Pulse Oximetry 91 Fraction of Inspired Oxygen 45 SaO2/FiO2 Ratio 227 Oxygen Delivery Method Mechanical Ventilation Oxygen Flow Rate 6 Narrative Exam Narrative: Sedated gentleman intubated [facility] Other: Patient is intubated, oral G tube in place, Eyes Other: Eyes closed Resp Other: Lungs decreased breath sounds Cardio Other: Cardiac exam: Regular rate rhythm normal S1-S2 GI Other: Abdomen: Soft and nontender Extrem Other: Extremities: No edema Objective Labs Result Diagrams: 01/10/21 04:00 01/10/21 04:00 Labs: Laboratory Results - last 24 hr 01/09/21 01/10/21 01/10/21 23:55 04:00 04:00 WBC 13.2 H RBC 3.75 L Hgb 10.0 L Hct 32.2 L MCV 85.9 MCH 26.7 MCHC 31.1 RDW 16.1 H Plt Count 342 ABG pH ABG pCO2 ABG pO2 ABG HCO3 ABG Total CO2 ABG O2 Saturation ABG Base Excess FiO2 Sodium 135 L Potassium 3.7 Chloride 103 Carbon Dioxide 26 BUN 39 H Creatinine 0.97 Estimated GFR > 60.0 BUN/Creatinine Ratio 40.2 H Glucose 98 Calcium 7.5 L Total Bilirubin 0.2 Conjugated Bilirubin 0.0 Unconjugated Bilirubin 0.1 AST 45 ALT 79 H Alkaline Phosphatase 94 Total Protein 5.4 L Albumin 2.6 L Globulin 2.8 Albumin/Globulin Ratio 0.9 L Triglycerides 104 Lipase Procalcitonin 0.18 Vancomycin Trough 18.4 01/10/21 01/10/21 04:00 04:10 WBC RBC Hgb Hct MCV MCH MCHC RDW Plt Count ABG pH 7.38 ABG pCO2 42.6 ABG pO2 83 ABG HCO3 25 ABG Total CO2 27 ABG O2 Saturation 96 ABG Base Excess 0.0 FiO2 60 Sodium Potassium Chloride Carbon Dioxide BUN Creatinine Estimated GFR BUN/Creatinine Ratio Glucose Calcium Total Bilirubin Conjugated Bilirubin Unconjugated Bilirubin AST ALT Alkaline Phosphatase Total Protein Albumin Globulin Albumin/Globulin Ratio Triglycerides Lipase 15 L Procalcitonin Vancomycin Trough [facility] Medical History (Updated 01/01/21 @ 16:05 by Romeo Linn DO) HLD (hyperlipidemia) HTN (hypertension) Type 2 diabetes mellitus Social History household members: children Assessment & Plan Assessment & Plan narrative: COVID-19 pneumonia with acute hypoxic respiratory failure -unvaccinated male, COVID positive with bilateral consolidation on outside CT. elevated ESR, CRP, D-dimer. patient presented moderately ill with hypoxia on presentation, cough, profound weakness, and diarrhea as well as noted in acute renal failure -provide supplemental O2, since admission oxygen requirements were worsening. was advanced slowly, attempted precedex to avoid intubation, however ultimately worsened to point of needing intubation late on 01/02. Continue mechanical ventilation, appreciate tele-od grinder operator assistance. -dexamethasone 6 mg IV q.d -remdesivir 200 mg x 1 then 100 mg IV q.d. x4 days. Now complete -baricitinib started 12/31 after advancing to heated high flow. Continue x14 days. -continue sedation with propofol and fentanyl, when waking he desaturates. -currently off dopamine for bradycardia -OG tube with tube feeds, currently with high residuals so still below goal -attempted weaning of vent and diuresis to improve respiratory status with little change -patient is able to be weaned now to peep of 4, FiO2 0.45, fentanyl propofol will be held, spontaneous breathing trial will be attempted today. -will obtain an ABG. If the patient passes with extubate today -continue Decadron -continue Bariticinib until January 14, 2021 ( 14 days) 2. Fever -developed fever on 01/09 -concern for possible bacterial infection -sputum, blood, urine cultures sent and pending -ordered for vancomycin/zosyn -procalcitonin ordered -sputum produced is thick -chest xray appears largely unchanged -MRSA PCR is negative, will discontinue vancomycin, continue Zosyn -will repeat procalcitonin in the morning 3. Acute metabolic encephalopathy, delirium from versed -patient presented with confusion in setting of hypoxia, NIXON, COVID pneumonia and UTI. Initially improved but worsened on 01/02. -worsening likely hospital induced delirium and worsening hypoxia. Attempted haldol, ativan without much help. Tried fentanyl, and precedex for sedation in hopes to avoid intubation however these were unsuccessful and patient continued to decline -01/08 patient noted to be unresponsive and sedation able to be weaned down, still not responding, CT head ordered for further evaluation and was negative -switched to propofol from versed due to prolonged sedation time -tapering propofol and fentanyl for spontaneous breathing trial 4. Urinary tract infection, resolved -completed 7 days of ceftriaxone 5. Chronic urinary retention with bilateral hydronephrosis on CT -Mendez placed at outside ED, manage Mendez -started tamsulosin 0.4 mg daily 5. 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 and metformin 850 mg t.i.d. -continue to increase lantus due to hyperglycemia, now at 85u bid 6. Acute kidney injury, resolved -likely prerenal due to diarrhea associated with COVID, possible obstructive component as well. -serum creatinine 3.2 at outside ED, baseline creatinine appears 1.48 from April 2019, improved to 0.68 now. -can stop IV fluids with tube feedings to start today 7. Hypertension -holding patient's lisinopril and furosemide due to initial NIXON -holding medications now while intubated 8. History of TIA -continued patient's clopidogrel 75 mg q.d. and atorvastatin 80 mg q.p.m. Plavix recommended to be held by tele-od grinder operator while on BID lovenox. Lines: R radial arterial line, placed 01/03. Midline L arm. OG tube. Mendez. GI ppx: Famotidine 20 mg IV BID DVT prophylaxis:? Lovenox, 40 BID for obesity. Code status:? Full code per wishes expressed by patient at time of admission, rediscussed day prior to intubation and he remained full code. He would not want tracheostomy per discussions with Dr. Linn Surrogate decision maker: SonRanjit Time Spent With Patient Critical Care time: I spent a total of [] minutes of critical care time on this patient's care today; this time is exclusive of procedural time. Time Spent With Patient Critical Care time: I spent a total of [] minutes of critical care time on this patient's care today; this time is exclusive of procedural time.
--- NOTE | 2021-01-10 14:25 | ED.CONSULT ---
ED Provider Consult/Code Note General Reason for Admission: DIRECT ADMIT FROM [facility] leading to Consult/Code: 80M admitted with COVID pneumonia, multiple commorbidities, failing HFNC. Called by hospitalist team for pending airway failure and request to intubate. Cardiac Additional: NSR Care Provided Description of care provided: Intubation: Decision to intubate this patient was made secondary to [failure on HFNC]. Appropriate staffing including multiple nurses and respiratory therapy were at the bedside. Glidescope and DL blades were available. Patient was preoxygenated and put on monitors. Rapid sequence intubation was performed using the following drugs:[Ketamine and Rocuronium. Precedex drip had been in place prior to my involvement and was maintained at 1.2 during my procedure.]. Intubation was successful based on visualization through the cords, condensation tube, confirmation with end tidal CO2 monitoring, equal breath sounds bilaterally, as well as radiographic confirmation of endotracheal tube just above the theresa. Ongoing sedation per TeleICU. Outcome Outcome: Tube was high and advanced a few CM by RT
[2021-01-10] MEDS: fentaNYL 1,000 MCG in DEXTROSE 5% IN WATER 230 ML 28.875 ML IV (18:39)
--- NOTE | 2021-01-10 19:44 | PC.NURSE ---
At shift change patient was off of propofol and fentanyl. At approximately 1700 patient was responding to verbal cues to squeeze hands. Patient's BP was in the 200's systolic and HR >100 and had a temp of 100.8. Fentanyl was restarted and tylenol was given. Approximately an hour later patient became agitated and restless, spO2 dropping to 85% despite suctioning. RT at bedside, turned FiO2 up to 50%. Propofol restarted and BP, HR, and spO2 improved to WNL.
--- NOTE | 2021-01-10 20:39 | PM.ICURNDS ---
- :: This patient was seen via real time interactive two-way audiovisual telecommunication. Note: chart/labs/imaging/events over 24 hours reviewed discussed with bedside md/rn vent settings minimal glucose control improved low grade fever noted adequate urine output suggest -wean to dc sedatives and transition to precedex to optimize AM sbt trials -hold lasix as pt is net weight is -ve and low grade fevers -cont abx, check cxs, if hypotensive can bolus albumin prn - remove or change any indwelling catheters present for over 7 days -
[2021-01-11] VITALS (63 sets, daily range): BP systolic 92–233; BP diastolic 34–93; PULSE 20–117; RESP 14–27; TEMP 37.7–39; O2SAT 88–98
[2021-01-11] MEDS: propofoL 1,000 MG/100 ML VIAL 21.006 MG IV ×4 (01:10→13:31)
[2021-01-11] MEDS: fentaNYL 1,000 MCG in DEXTROSE 5% IN WATER 230 ML 34.65 ML IV (02:00)
[2021-01-11] MEDS: CHLORHEXIDINE GLUCONATE 15 ML CUP PO ×3 (04:52→18:58)
[2021-01-11 05:04] LABS: Blood Urea Nitrogen 34 mg/dL (9-20); Calcium 7.4 mg/dL (8.4-10.2); Carbon Dioxide 28 mmol/L (22-32); Chloride 104 mmol/L (98-107); Estimated Glomerular Filt Rate > 60.0 mL/min (>60); Glucose 83 mg/dL (80-110); HEMOLYSIS < 15 (0-50); Potassium 3.3 mmol/L (3.4-5.1); Sodium 134 mmol/L (137-145)
[2021-01-11 05:11] LABS: Hematocrit 25.9 % (41-53); Hemoglobin 8.4 g/dL (13.5-17.5); Mean Corpuscular HGB Conc 32.4 % (30-36); Mean Corpuscular Hemoglobin 27.5 PG (26-34); Mean Corpuscular Volume 84.6 fL (80-100); Platelet Count 306 X10^3/uL (150-400); Red Blood Cell Count 3.06 X10^6/uL (4.5-5.9); Red Cell Distribution Width 15.8 % (11.6-14.8)
[2021-01-11 05:13] LABS: HCO3 ABG 24 mmol/L (22-26); PCO2 ABG 32.7 mmHg (35-45); PO2 ABG 62 mmHg (80-100); TCO2 ABG 25 mmol/L (21-31); pH ABG 7.48 (7.35-7.45)
[2021-01-11 05:14] LABS: Add Manual Diff / Slide Review YES
[2021-01-11 05:14] LABS: Fractionated Inspired Oxygen 40; Oxygen Saturation ABG 93 % (95-100)
[2021-01-11 05:19] LABS: Fractionated Inspired Oxygen 50
[2021-01-11] MEDS: PIPERACILLIN/TAZO 3.375 GM in SODIUM CHLORIDE 0.9% 100 ML 25 ML IV ×3 (05:45→22:08)
[2021-01-11 05:58] LABS: Procalcitonin 0.35 ng/mL (<0.5)
[2021-01-11 06:19] LABS: Neutrophils Absolute Manual 13200 /uL (3000-5900); Total Cells Counted 100
[2021-01-11 06:20] LABS: Anisocytosis 2+; RBC Morphology sb
--- NOTE | 2021-01-11 06:30 | PM.EICU.INT ---
Teleintensivist Intervention Date/Time Was camera activated?: Yes Date Patient Seen: 01/11/21 Time Patient Seen: 06:31 Issue(s) Addressed Issue(s): Hypertension and Pain, Agitation, Sedation, Delirium Other:: pt was cleaned and moved became agitated, hypoxic and hypertensive. SUGGEST TO OPTIMIZE SEDATION, CHEST PT/PULM TOILET SUGGEST TO ADD SEROQUEL IF QTC IS LESS THAN 550 OR ABILIFY TO DECREASE IV SEDATIVES Intervention(s) Plan discussed with: Nurse
[2021-01-11] MEDS: propofoL 1,000 MG/100 ML VIAL 35.01 MG IV (06:48)
[2021-01-11] MEDS: ACETAMINOPHEN SUSP 650 MG/20.3 ML UDC PO (07:00)
--- NOTE | 2021-01-11 07:37 | PC.NURSE ---
Patient's scrotum palpates a large firm mass oriented unilaterally to right side. Sling placed under scrotum. Dr. Campbell informed. Ultrasound to be performed 01/11/21
[2021-01-11] MEDS: FAMOTIDINE 20 MG/2 ML VIAL IV ×2 (08:02→21:00)
[2021-01-11] MEDS: ENOXAPARIN 40 MG/0.4 ML SYRINGE SUBCUT ×2 (08:03→21:54)
[2021-01-11] MEDS: SODIUM CHLORIDE 0.9% FLUSH 10 ML IV (08:04)
[2021-01-11] MEDS: INSULIN GLARGINE 100 UNIT/ML 3ML PEN 85 UNIT SUBCUT ×2 (08:04→21:38)
[2021-01-11] MEDS: BARICITINIB 2 MG TABLET 4 MG PO (08:07)
[2021-01-11] MEDS: fentaNYL 1,000 MCG in DEXTROSE 5% IN WATER 230 ML 28.875 ML IV ×2 (09:21→17:40)
[2021-01-11] MEDS: FUROSEMIDE 20 MG/2 ML VIAL 10 MG IV ×2 (11:13→17:26)
--- NOTE | 2021-01-11 14:23 | PC.NURSE ---
Day Shift Note Pt sedated on propofol 30 mcg/kg/min and fentanyl 1 mcg/kg/hr. RASS between -3 and -4, not following commands but will grimace and attempt to reach for tubing when repositioned. Attempted to decrease sedation without success, pt became hypertensive up to the 180s systolic and agitated when propofol decreased to 20 mcg/kg/min. Clarified plan of care for the day with Dr. Campbell and no sedation vacation to be done per Dr. Campbell. Vent settings per RT, currently 70% FiO2, 10 PEEP, 20 RR, and 440 TV. Breathing 20 bpm with vent. Arterial line zeroed x2 this shift per protocol. Mendez catheter noted to not be draining and required aspiration of a moderate amount of sediment before draining normally. Loose stools x2 this shift. Dressings changed to open areas on buttocks/coccyx.
--- NOTE | 2021-01-11 14:53 | CM.DPC ---
DCP/continued: Reviewed chart. Received phone call from Joanna at [facility] this AM. She indicates that they can accept this patient once he has trach and PEG placed. Dr. Campbell aware and will most likely be contacting surgery. BOXING INSTRUCTOR placed call to Jess with [facility] ph# [phone]. Jess is assigned [facility] CM. Jess reports that once patient has PEG/trach she will contact medical aide at [facility] for [facility] authorization. Jess given [facility] contact/Joanna phone number. Jess does not anticipate that there will be any problem with authorization because there is no other fpc placement with this high acuity. P: CM team following closely. Hopeful once patient has PEG/trach he can go to [facility]. NIVIA
[2021-01-11] MEDS: QUETIAPINE 25 MG TABLET 50 MG PO (17:26)
[2021-01-11] MEDS: DEXMEDETOMIDINE HCL 400 MCG in SODIUM CHLORIDE 0.9% 100 ML 6 ML IV ×2 (17:30→23:31)
[2021-01-11] MEDS: SODIUM CHLORIDE 0.9% 250 ML 21 ML IV (17:52)
--- NOTE | 2021-01-11 18:35 | P.PN_ITS ---
Subjective Subjective Date Patient Seen: 01/11/21 Time Patient Seen: 14:30 Interval history: The patient is an 80-year-old male intubated in the ICU with acute respiratory failure secondary to COVID pneumonia. Patient has had difficulty over the past 24 hours. He has become increasingly agitated. He is difficult to ventilate. He becomes hypoxic. And his FiO2 has been increased to 70% in addition to increasing his PEEP from 4-10. Patient continues to have l ow-grade fever. Chest x-ray is on changed, however given diffuse opacities it is quite possible that the patient has a probable ventilator associated pneumonia which is difficult to ascertain. Exam Vital Signs (past 8 hours): - 01/11/21 11:00 01/11/21 11:01 01/11/21 12:00 Temperature 100.4 F H 100.4 F H 100.6 F H Pulse Rate 73 73 68 Respiratory Rate 19 17 14 Blood Pressure 169/49 H 187/76 H 142/63 H Pulse Oximetry 96 96 92 01/11/21 12:01 01/11/21 13:00 01/11/21 14:00 Temperature 100.6 F H 100.4 F H 100.4 F H Pulse Rate 68 70 56 L Respiratory Rate 14 17 20 Blood Pressure 142/63 H 173/73 H 107/44 L Pulse Oximetry 92 95 95 01/11/21 14:01 01/11/21 15:00 01/11/21 16:00 Temperature 100.4 F H 100.2 F H 100.0 F H Pulse Rate 53 L 46 L 48 L Respiratory Rate 20 20 20 Blood Pressure 110/56 L 93/53 L 107/55 L Pulse Oximetry 95 97 98 01/11/21 16:41 01/11/21 17:00 Temperature Pulse Rate 95 H 100 H Respiratory Rate 20 20 Blood Pressure 196/88 H 191/81 H Pulse Oximetry 93 88 L Fraction of Inspired Oxygen 0.7 SaO2/FiO2 Ratio 227 Oxygen Delivery Method Mechanical Ventilation Oxygen Flow Rate 5 Narrative Exam Narrative: Intubated sedated male lying in bed, deeply sedated Resp Other: Lungs decreased breath sounds bilaterally Cardio Other: Cardiac exam: Regular rate rhythm normal S1-S2 GI Other: Abdomen: Soft and nontender Extrem Other: Extremities: 2+ edema bilaterally Objective Labs Result Diagrams: 01/11/21 04:35 01/11/21 04:35 Labs: Laboratory Results - last 24 hr 01/08/21 01/11/21 01/11/21 05:55 04:35 04:35 WBC 15.0 H RBC 3.06 L Hgb 8.4 L Hct 25.9 L MCV 84.6 MCH 27.5 MCHC 32.4 RDW 15.8 H Plt Count 306 Neut % (Auto) Not Reportable Lymph % (Auto) Not Reportable [place] % (Auto) Not Reportable Eos % (Auto) Not Reportable Baso % (Auto) Not Reportable Lymph # (Auto) Not Reportable [place] # (Auto) Not Reportable Baso # (Auto) Not Reportable Total Counted 100 Seg Neutrophils % 88.0 H Lymphocytes % (Manual) 5.0 L Monocytes % (Manual) 7.0 Neutrophils # (Manual) 94930 H RBC Morphology sb Anisocytosis 2+ H ABG pH ABG pCO2 ABG pO2 ABG HCO3 ABG Total CO2 ABG O2 Saturation ABG Base Excess FiO2 50 Sodium 134 L Potassium 3.3 L Chloride 104 Carbon Dioxide 28 BUN 34 H Creatinine 0.92 Estimated GFR > 60.0 BUN/Creatinine Ratio 37.0 H Glucose 83 Calcium 7.4 L Procalcitonin 01/11/21 01/11/21 04:35 04:43 WBC RBC Hgb Hct MCV MCH MCHC RDW Plt Count Neut % (Auto) Lymph % (Auto) [place] % (Auto) Eos % (Auto) Baso % (Auto) Lymph # (Auto) [place] # (Auto) Baso # (Auto) Total Counted Seg Neutrophils % Lymphocytes % (Manual) Monocytes % (Manual) Neutrophils # (Manual) RBC Morphology Anisocytosis ABG pH 7.48 H ABG pCO2 32.7 L ABG pO2 62 L ABG HCO3 24 ABG Total CO2 25 ABG O2 Saturation 93 L ABG Base Excess 0.0 FiO2 40 Sodium Potassium Chloride Carbon Dioxide BUN Creatinine Estimated GFR BUN/Creatinine Ratio Glucose Calcium Procalcitonin 0.35 [facility] Medical History (Updated 01/01/21 @ 16:05 by Romeo Linn DO) HLD (hyperlipidemia) HTN (hypertension) Type 2 diabetes mellitus Social History household members: children Assessment & Plan Assessment & Plan narrative: COVID-19 pneumonia with acute hypoxic respiratory failure -unvaccinated male, COVID positive with bilateral consolidation on outside CT. elevated ESR, CRP, D-dimer. patient presented moderately ill with hypoxia on presentation, cough, profound weakness, and diarrhea as well as noted in acute renal failure -provide supplemental O2, since admission oxygen requirements were worsening. was advanced slowly, attempted precedex to avoid intubation, however ultimately worsened to point of needing intubation late on 01/02. Continue mechanical nat tilation, appreciate tele-hand mica plate layer assistance. -dexamethasone 6 mg IV q.d -remdesivir 200 mg x 1 then 100 mg IV q.d. x4 days. Now complete -baricitinib started 12/31 after advancing to heated high flow. Continue x14 days. -continue sedation with propofol and fentanyl, when waking he desaturates. -currently off dopamine for bradycardia -OG tube with tube feeds, currently with high residuals so still below goal -attempted weaning of vent and diuresis to improve respiratory status with little change -patient is able to be weaned now to peep of 4, FiO2 0.45, fentanyl propofol will be held, spontaneous breathing trial will be attempted today. -will obtain an ABG.? If the patient passes with extubate today -continue Decadron -continue Bariticinib until January 14, 2021 ( 14 days) -patient continues to develop severe agitation, hypertension, hypoxemia with difficult ventilation -will discontinue propofol and fentanyl -will start Precedex -will add Seroquel 50 q.day -patient with a MAP of 54, will give 250 cc saline, and follow, will use lowest dose of precedex as possible -discussed trach with son today, he will visit his dad tomorrow, will proceed with trach if patient unable to wean tomorrow 2. Fever -developed fever on 01/09 -concern for possible bacterial infection -sputum, blood, urine cultures sent and pending -ordered for vancomycin/zosyn -procalcitonin ordered -sputum produced is thick -chest xray appears largely unchanged -MRSA PCR is negative, will discontinue vancomycin, continue Zosyn -will repeat procalcitonin in the morning -suspect probable ventilator associated pneumonia -WBC increasing, consider adding antifungal -procalcitonin .35 today ( not suggestive of bacterial infection) 3. Acute metabolic encephalopathy, delirium from versed -patient presented with confusion in setting of hypoxia, NIXON, COVID pneumonia and UTI. Initially improved but worsened on 01/02. -worsening likely hospital induced delirium and worsening hypoxia. Attempted haldol, ativan without much help. Tried fentanyl, and precedex for sedation in hopes to avoid intubation however these were unsuccessful and patient continued to decline -01/08 patient noted to be unresponsive and sedation able to be weaned down, still not responding, CT head ordered for further evaluation and was negative -switched to propofol from versed due to prolonged sedation time -tapering propofol and fentanyl for spontaneous breathing trial -patient unable to tolerate SBT -now on precedex/seroquel, increased FI02 to 70%, PEEP 10 4. Urinary tract infection, resolved -completed 7 days of ceftriaxone 5. Chronic urinary retention with bilateral hydronephrosis on CT -Mendez placed at outside ED, manage Mendez -started tamsulosin 0.4 mg daily 5. 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 and metformin 850 mg t.i.d. -continue to increase lantus due to hyperglycemia, now at 85u bid 6. Acute kidney injury, resolved -likely prerenal due to diarrhea associated with COVID, possible obstructive component as well. -serum creatinine 3.2 at outside ED, baseline creatinine appears 1.48 from April 2019, improved to 0.68 now. 7. Hypertension -holding patient's lisinopril and furosemide due to initial NIXON -holding medications now while intubated 8. History of TIA -continued patient's clopidogrel 75 mg q.d. and atorvastatin 80 mg q.p.m. Plavix recommended to be held by tele-hand mica plate layer while on BID lovenox. 9. Prognosis is very poor. This has been communicated to his son Mariposa, who wishes to proceed with full support. Lines: R radial arterial line, placed 01/03. Midline L arm. OG tube. Mendez. GI ppx: Famotidine 20 mg IV BID DVT prophylaxis:? Lovenox, 40 BID for obesity. Time Spent With Patient Critical Care time: I spent a total of [] minutes of critical care time on this patient's care today; this time is exclusive of procedural time.
[2021-01-11] MEDS: POTASSIUM CHLORIDE IN WATER 10 MEQ/100 ML PIGGYBACK 100 MEQ IV ×4 (18:48→22:08)
[2021-01-11] MEDS: SODIUM CHLORIDE 0.9% 500 ML 250 ML IV (18:58)
--- NOTE | 2021-01-11 19:21 | PC.NURSE ---
Addendum entered by Marianna Parra R.N. 01/11/21 22:58: Repositioned right side at 2230. HOB > 30. Addendum entered by Marianna Parra R.N. 01/11/21 20:51: Despite pressure ulcers of patient buttocks, pt not repositioned after 1600 due to poor tolerance - labiel vital signs, agitation, increased oxygen needs, etc. Addendum entered by Marianna Parra R.N. 01/11/21 20:15: Care conference arranged with son, [place], for tomorrow at 5:15 pm. He is hoping his dad can be given a sedation vacation at that time. Intensive care physician Dr. Stuart in agreement that plans need to be made sooner rather than later for extubation vs. trach. Original Note: Report received, care assumed 1530. Contact with patient about 1600 for assessment and repositioning. With stimulation, patient became agitated, dropping his oxygen sats to 70's, becoming hypertensive systolic >200, tachycardic >100, tachypnea >35 (over the ventilator rate). Status did not improve with cessation of stimulation or with increased doses of analgesic and sedative. Dr. Campbell informed. Orders received for Precedex gtt and discontinuation of Diprivan. Loading dose administered per protocol and gtt started at lowest protocol rate of 0.2 mcg/kg/hr. Pt calmer but then became hypotensive, with MAP<60. Fentanyl off, IV bolus administered per order. VSS at this time (1929).
--- NOTE | 2021-01-11 20:08 | PM.ICURNDS ---
- Date Patient Seen: 01/11/21 Time Patient Seen: 20:08 :: This patient was seen via real time interactive two-way audiovisual telecommunication. Note: chart/labs/imaging/events over 24 hours reviewed pt vitals/vent/sats remain labile, hypertension and desaturation with agitation sedative meds have been adjusted low grade fever noted again adequate urine output suggest -cont abx -dc lasix -ok with smmall bolus for bp, hold precedex if hypotension persists -dc precedex if bradycardia with hr less than 60 -unlikely will be a good candidate for extubation,
[2021-01-12] VITALS (65 sets, daily range): BP systolic 92–220; BP diastolic 41–86; PULSE 42–114; RESP 17–23; TEMP 37.3–38.8; O2SAT 86–99
--- NOTE | 2021-01-12 00:43 | PM.EICU.INT ---
Teleintensivist Intervention Date/Time Was camera activated?: Yes Date Patient Seen: 01/12/21 Time Patient Seen: 00:43 Issue(s) Addressed Issue(s): Arrhythmia, Electrolytes and Fever Intervention(s) :: check labs check ekg optimize sedation, restart fentanyl give 1 gram of magnesium if arrhythmia persists and irregular, could do cardizem/lopressor prn would not fully anticoagulate Plan discussed with: Nurse
[2021-01-12 00:57] LABS: Add Manual Diff / Slide Review NO; Basophils Absolute Auto 100 /uL (0-100); Basophils Percent Auto 0.5 % (0-2); Eosinophils Absolute Auto 0 /uL (0-450); Eosinophils Percent Auto 0.2 % (2-4); Hematocrit 30.8 % (41-53); Hemoglobin 9.9 g/dL (13.5-17.5); Lymphocytes Absolute Auto 1100 /uL (1100-4500); Lymphocytes Percent Auto 7.2 % (25-40); Mean Corpuscular Hemoglobin 27.1 PG (26-34); Mean Corpuscular Volume 84.5 fL (80-100); Monocytes Absolute Auto 1600 /uL (0-900); Monocytes Percent Auto 9.9 % (3-14); Neutrophils Absolute Auto 13000 /uL (1500-7000); Neutrophils Percent Auto 82.2 % (50-75); Platelet Count 368 X10^3/uL (150-400); Red Blood Cell Count 3.65 X10^6/uL (4.5-5.9); Red Cell Distribution Width 15.5 % (11.6-14.8); White Blood Cell Count 15.8 X10^3/uL (4.5-11.0)
--- NOTE | 2021-01-12 01:01 | DI.US.S_ITS ---
PROCEDURE: US PERIPH VENOUS LOW EXTREM BI INDICATIONS: RULE OUT DEEP VEIN THROMBOSIS. COVID POSITIVE. TECHNIQUE: Real-time imaging, as well as color and pulse Doppler interrogation, were performed of the deep veins of both legs from the inguinal ligament to the popliteal fossa. COMPARISON: None. FINDINGS: Right: The common femoral, femoral and popliteal veins are normally compressible, and free of intraluminal thrombus. Color and pulse Doppler demonstrate normal phasic intravascular flow. There is normal augmentation response to distal compression maneuver. Left: The common femoral, femoral and popliteal veins are normally compressible, and free of intraluminal thrombus. Color and pulse Doppler demonstrate normal phasic intravascular flow. There is normal augmentation response to distal compression maneuver. IMPRESSION: No sonographic evidence of DVT. Dictated by: Bowen Miller M.D. on 01/12/2021 at 9:47 Approved by: Bowen Miller M.D. on 01/12/2021 at 9:48
[2021-01-12 01:14] LABS: BUN Creatinine Ratio 45.7 (6-22); Blood Urea Nitrogen 37 mg/dL (9-20); Calcium 7.4 mg/dL (8.4-10.2); Carbon Dioxide 28 mmol/L (22-32); Chloride 103 mmol/L (98-107); Estimated Glomerular Filt Rate > 60.0 mL/min (>60); Glucose 65 mg/dL (80-110); HEMOLYSIS 78 (0-50); Magnesium 2.5 mg/dL (1.6-2.3); Phosphorous 3.3 mg/dL (2.3-3.7); Sodium 135 mmol/L (137-145)
[2021-01-12 01:16] LABS: Potassium 4.4 mmol/L (3.4-5.1)
[2021-01-12] MEDS: DEXTROSE 50 % IN WATER 25 GM/50 ML SYRINGE IV ×2 (01:36→11:52)
[2021-01-12] MEDS: CHLORHEXIDINE GLUCONATE 15 ML CUP PO ×4 (01:36→18:14)
[2021-01-12] MEDS: MAGNESIUM SULFATE 2 GM/50 ML PIGGYBACK IV (01:36)
--- NOTE | 2021-01-12 03:19 | PC.NURSE ---
Shift Notes-At change of shift around midnight, patient was restless, agitated, hypertensive, and started to have bursts of SVT with rate up to 160, see strips and vital trends. Fentanyl gtt restarted at 2mcg/kg/hr, Precedex gtt increased to 0.3mcg/min. Intercept contacted in room, Dr. Stuart assessed patient, EKG done, labs drawn, Mg+ sulfate 1gm ordered and hung, Fentanyl increased to 2.5mcg. Core Temp 101.7, cooling patient with fan and cold clothes, Zosyn infusing. Dr. Benavides notified by phone. 0200-Amp D50 given for lab glucose of 65, FS CBG at 0000 was 75. Vent settings have remained the same-FIO2 .70. PEEP 8, TV 440, RR 20, SpO2 has been >93%, lung sounds coarse throughout. 0300-Patient is calmly sedated, no more episodes of SVT or tachycardia, HR has decresed to 50s-60s, BP 130s/50s via art-line, Precedex decreased to 0.2mcg, Fentanyl decreased to 1.5mcg.
[2021-01-12] MEDS: fentaNYL 1,000 MCG in DEXTROSE 5% IN WATER 230 ML 43.313 ML IV ×2 (03:53→18:16)
--- NOTE | 2021-01-12 04:54 | PC.NURSE ---
Addendum entered by Poli Anthony R.N. 01/12/21 06:00: 0520 01/12/2021 Kierra Manju calls again and asks if there is a difference in treatment protocol for a person who catches COVID from a vaccinated person vs a non-vaccinated person. Ms Nunes states that this patient caught COVID from a vaccinated person. Education was provided as best as I could. Original Note: 0450 01/12/2021 Kierra Nunes updated via phone.
[2021-01-12 05:15] LABS: Alanine Aminotransferase 55 IU/L (<50); Albumin 2.8 g/dL (3.5-5.0); Albumin Globulin Ratio 0.9 (1.0-2.8); Alkaline Phosphatase 106 U/L (38-126); Aspartate Aminotransferase 38 IU/L (17-59); BUN Creatinine Ratio 39.5 (6-22); Bilirubin Total 0.2 mg/dL (0.2-1.3); Blood Urea Nitrogen 34 mg/dL (9-20); Calcium 7.5 mg/dL (8.4-10.2); Carbon Dioxide 29 mmol/L (22-32); Chloride 102 mmol/L (98-107); Estimated Glomerular Filt Rate > 60.0 mL/min (>60); Globulin 3.2 g/dL (1.7-4.1); Glucose 79 mg/dL (80-110); HEMOLYSIS < 15 (0-50); Potassium 4.1 mmol/L (3.4-5.1); Sodium 134 mmol/L (137-145)
[2021-01-12 05:22] LABS: NT-proBNP (BNP-Adult 18+) 1840 pg/mL (<450)
[2021-01-12] MEDS: PIPERACILLIN/TAZO 3.375 GM in SODIUM CHLORIDE 0.9% 100 ML 25 ML IV ×3 (05:47→21:46)
[2021-01-12 06:13] LABS: Fractionated Inspired Oxygen 70; HCO3 ABG 22 mmol/L (22-26); Oxygen Saturation ABG 96 % (95-100); PCO2 ABG 34.1 mmHg (35-45); PO2 ABG 77 mmHg (80-100); TCO2 ABG 23 mmol/L (21-31); pH ABG 7.42 (7.35-7.45)
[2021-01-12 06:28] LABS: Add Manual Diff / Slide Review NO; Basophils Absolute Auto 100 /uL (0-100); Basophils Percent Auto 0.8 % (0-2); Eosinophils Absolute Auto 0 /uL (0-450); Eosinophils Percent Auto 0.1 % (2-4); Hematocrit 27.8 % (41-53); Hemoglobin 8.8 g/dL (13.5-17.5); Lymphocytes Absolute Auto 800 /uL (1100-4500); Lymphocytes Percent Auto 6.3 % (25-40); Mean Corpuscular HGB Conc 31.6 % (30-36); Mean Corpuscular Volume 85.4 fL (80-100); Monocytes Absolute Auto 1400 /uL (0-900); Monocytes Percent Auto 11.3 % (3-14); Neutrophils Absolute Auto 10200 /uL (1500-7000); Neutrophils Percent Auto 81.5 % (50-75); Platelet Count 277 X10^3/uL (150-400); Red Blood Cell Count 3.26 X10^6/uL (4.5-5.9); Red Cell Distribution Width 15.4 % (11.6-14.8); White Blood Cell Count 12.6 X10^3/uL (4.5-11.0)
[2021-01-12] MEDS: ENOXAPARIN 40 MG/0.4 ML SYRINGE SUBCUT ×2 (08:54→20:09)
[2021-01-12] MEDS: INSULIN GLARGINE 100 UNIT/ML 3ML PEN 85 UNIT SUBCUT (08:55)
[2021-01-12] MEDS: BARICITINIB 2 MG TABLET 4 MG PO (08:55)
[2021-01-12] MEDS: FAMOTIDINE 20 MG/2 ML VIAL IV ×2 (08:55→20:09)
[2021-01-12] MEDS: SODIUM CHLORIDE 0.9% FLUSH 10 ML IV ×2 (08:56→20:10)
[2021-01-12] MEDS: fentaNYL 1,000 MCG in DEXTROSE 5% IN WATER 230 ML 57.75 ML IV ×2 (08:56→13:25)
[2021-01-12] MEDS: ACETAMINOPHEN SUSP 650 MG/20.3 ML UDC PO (10:19)
[2021-01-12] MEDS: DEXMEDETOMIDINE HCL 400 MCG in SODIUM CHLORIDE 0.9% 100 ML 26.676 ML IV (10:29)
--- NOTE | 2021-01-12 11:41 | PM.PN.1 ---
Subjective Subjective Interval history: 80 y/o male admitted for acute respiratory failure secondary to Covid Pneumonia. Patient has been intubated since Jan 02. He is unable to wean, he continues to have agitation and need for high flow oxygen. He does not appear to be making any progress. His son will be in today to see the patient. 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 Patient remains febrile despite antibiotics Exam Vital Signs (past 8 hours): - 01/12/21 04:00 01/12/21 04:01 01/12/21 04:30 Temperature 101.3 F H 101.3 F H 101.5 F H Pulse Rate 81 82 87 Respiratory Rate 17 17 21 Blood Pressure 188/84 H 173/77 H Pulse Oximetry 96 95 92 01/12/21 05:00 01/12/21 05:30 01/12/21 06:00 Temperature 101.7 F H 101.7 F H 101.7 F H Pulse Rate 74 66 63 Respiratory Rate 20 20 20 Blood Pressure 154/67 H 140/63 132/60 Pulse Oximetry 95 95 95 01/12/21 07:00 01/12/21 08:00 01/12/21 09:00 Temperature 101.7 F H 101.7 F H 101.7 F H Pulse Rate 61 59 L 81 Respiratory Rate 20 20 20 Blood Pressure 146/46 H 143/46 H 220/59 H Pulse Oximetry 95 95 96 01/12/21 10:00 01/12/21 10:19 01/12/21 11:00 Temperature 101.5 F H 101.5 F H 100.9 F H Pulse Rate 54 L 50 L Respiratory Rate 20 20 Blood Pressure 122/41 L 109/57 L Pulse Oximetry 95 98 Fraction of Inspired Oxygen 0.65 SaO2/FiO2 Ratio 227 Oxygen Delivery Method Mechanical Ventilation Oxygen Flow Rate 5 Narrative Exam Narrative: Ill appearing male sedated, intubated, eyes closed Resp Other: Lungs: decreased breath sounds Cardio Other: RRR nl Sl S2 GI Other: abdomen: soft/ non tender/ no palpapble masses Other: rao in place Extrem Other: 1+ edema bilaterally Objective Labs Result Diagrams: 01/12/21 06:16 01/12/21 04:40 Labs: Laboratory Results - last 24 hr 01/11/21 01/12/21 01/12/21 04:43 00:45 00:45 WBC 15.8 H RBC 3.65 L Hgb 9.9 L Hct 30.8 L MCV 84.5 MCH 27.1 MCHC 32.0 RDW 15.5 H Plt Count 368 Neut % (Auto) 82.2 H Lymph % (Auto) 7.2 L [place] % (Auto) 9.9 Eos % (Auto) 0.2 L Baso % (Auto) 0.5 Neut # (Auto) 99882 H Lymph # (Auto) 1100 [place] # (Auto) 1600 H Eos # (Auto) 0 Baso # (Auto) 100 ABG pH 7.48 H ABG pCO2 32.7 L ABG pO2 62 L ABG HCO3 24 ABG Total CO2 25 ABG O2 Saturation 93 L ABG Base Excess 0.0 FiO2 40 Sodium 135 L Potassium 4.4 Chloride 103 Carbon Dioxide 28 BUN 37 H Creatinine 0.81 Estimated GFR > 60.0 BUN/Creatinine Ratio 45.7 H Glucose 65 L Calcium 7.4 L Phosphorus 3.3 Magnesium 2.5 H Total Bilirubin AST ALT Alkaline Phosphatase NT-Pro-B Natriuret Pep Total Protein Albumin Globulin Albumin/Globulin Ratio 01/12/21 01/12/21 01/12/21 04:40 05:50 06:16 WBC 12.6 H RBC 3.26 L Hgb 8.8 L Hct 27.8 L MCV 85.4 MCH 27.0 MCHC 31.6 RDW 15.4 H Plt Count 277 Neut % (Auto) 81.5 H Lymph % (Auto) 6.3 L [place] % (Auto) 11.3 Eos % (Auto) 0.1 L Baso % (Auto) 0.8 Neut # (Auto) 88349 H Lymph # (Auto) 800 L [place] # (Auto) 1400 H Eos # (Auto) 0 Baso # (Auto) 100 ABG pH 7.42 ABG pCO2 34.1 L ABG pO2 77 L ABG HCO3 22 ABG Total CO2 23 ABG O2 Saturation 96 ABG Base Excess -2.0 FiO2 70 Sodium 134 L Potassium 4.1 Chloride 102 Carbon Dioxide 29 BUN 34 H Creatinine 0.86 Estimated GFR > 60.0 BUN/Creatinine Ratio 39.5 H Glucose 79 L Calcium 7.5 L Phosphorus Magnesium Total Bilirubin 0.2 AST 38 ALT 55 H Alkaline Phosphatase 106 NT-Pro-B Natriuret Pep 1840 H Total Protein 6.0 L Albumin 2.8 L Globulin 3.2 Albumin/Globulin Ratio 0.9 L [facility] Medical History (Updated 01/01/21 @ 16:05 by Romeo Linn DO) HLD (hyperlipidemia) HTN (hypertension) Type 2 diabetes mellitus Social History household members: children Assessment & Plan Assessment & Plan narrative: COVID-19 pneumonia with acute hypoxic respiratory failure -unvaccinated male, COVID positive with bilateral consolidation on outside CT. elevated ESR, CRP, D-dimer. patient presented moderately ill with hypoxia on presentation, cough, profound weakness, and diarrhea as well as noted in acute renal failure -provide supplemental O2, since admission oxygen requirements were worsening. was advanced slowly, attempted precedex to avoid intubation, however ultimately worsened to point of needing intubation late on 01/02. Continue mechanical ventilation, appreciate tele-cooker process cheese assistance. -dexamethasone 6 mg IV q.d -remdesivir 200 mg x 1 then 100 mg IV q.d. x4 days. Now complete -baricitinib started 12/31 after advancing to heated high flow. Continue x14 days. -continue sedation with propofol and fentanyl, when waking he desaturates. -currently off dopamine for bradycardia -OG tube with tube feeds, currently with high residuals so still below goal -attempted weaning of vent and diuresis to improve respiratory status with little change -patient is able to be weaned now to peep of 4, FiO2 0.45, fentanyl propofol will be held, spontaneous breathing trial will be attempted today. -will obtain an ABG.? If the patient passes with extubate today -continue Decadron -continue Bariticinib until January 14, 2021 ( 14 days) -patient continues to develop severe agitation, hypertension, hypoxemia with difficult ventilation -will discontinue propofol and fentanyl -will start Precedex -will add Seroquel 50 q.day -patient with a MAP of 54, will give 250 cc saline, and follow, will use lowest dose of precedex as possible -discussed trach with son today, he will visit his dad tomorrow, will proceed with trach if patient unable to wean tomorrow 2. Fever -developed fever on 01/09 -concern for possible bacterial infection -sputum, blood, urine cultures sent and pending -ordered for vancomycin/zosyn -procalcitonin ordered -sputum produced is thick -chest xray appears largely unchanged -MRSA PCR is negative, will discontinue vancomycin, continue Zosyn -will repeat procalcitonin in the morning -suspect probable ventilator associated pneumonia -WBC increasing, consider adding antifungal -procalcitonin .35 today ( not suggestive of bacterial infection) 3. Acute metabolic encephalopathy, delirium from versed -patient presented with confusion in setting of hypoxia, NIXON, COVID pneumonia and UTI. Initially improved but worsened on 01/02. -worsening likely hospital induced delirium and worsening hypoxia. Attempted haldol, ativan without much help. Tried fentanyl, and precedex for sedation in hopes to avoid intubation however these were unsuccessful and patient continued to decline -01/08 patient noted to be unresponsive and sedation able to be weaned down, still not responding, CT head ordered for further evaluation and was negative -switched to propofol from versed due to prolonged sedation time -tapering propofol and fentanyl for spontaneous breathing trial -patient unable to tolerate SBT -now on precedex/seroquel, increased FI02 to 70%, PEEP 10 4. Urinary tract infection, resolved -completed 7 days of ceftriaxone 5. Chronic urinary retention with bilateral hydronephrosis on CT -Rao placed at outside ED, manage Rao -started tamsulosin 0.4 mg daily 5. 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 and metformin 850 mg t.i.d. -continue to increase lantus due to hyperglycemia, now at 85u bid 6. Acute kidney injury, resolved -likely prerenal due to diarrhea associated with COVID, possible obstructive component as well. -serum creatinine 3.2 at outside ED, baseline creatinine appears 1.48 from April 2019, improved to 0.68 now. Time Spent With Patient Critical Care time: I spent a total of [] minutes of critical care time on this patient's care today; this time is exclusive of procedural time.
[2021-01-12] MEDS: DEXMEDETOMIDINE HCL 400 MCG in SODIUM CHLORIDE 0.9% 100 ML 17.784 ML IV ×2 (13:27→20:00)
--- NOTE | 2021-01-12 14:44 | PC.NURSE ---
Day Shift Note Pt agitated this AM during U/S and with attempts to reposition, tensing muscles and grimacing. Not following commands. BP up to the 230s systolic and HR 100-110 bpm (sinus). Required precedex up to 0.9 mcg/kg/hr along with fentanyl at 2 mcg/kg/hr to achieve RASS of -3 to -4 while tolerating changes in position. Precedex currently at 0.6 mcg/kg/hr and fentanyl at 2 mcg/kg/hr. HR in the 40-50s, BP in the 100-110s systolic. VS and current gtt rates reviewed with Dr. Campbell. CBG 59 at 1200 check, 1 amp D50 administered per order with increase to 140 on recheck - updated Dr. Campbell and that she will adjust the Lantus dose. Turning every 2 hours using the bed tilt. Mendez catheter in place and draining clear yellow urine. Soft wrist restraints in place bilaterally. ART line zeroed x2 and tubing changed per protocol.
--- NOTE | 2021-01-12 15:40 | CM.DPC ---
DCP Cont: Per MD, pt continues on the ventilator without any signs of being extubated and plan is still for son/LUCÍA Niño to be bedside this evening around 1730 for final decision of trach/PEG vs hospice with pt and so far son has been in agreement with full tx. MD to consult with Surgeons towards likely plan of trach/PEG and when they could get pt on the surgery schedule. EMILY called [facility] and updated on pt status and plan for this evening and she confirms that they can still accept after Trach/PEG placed. SW to call Jess with [facility] ph# [phone] once patient has PEG/trach placed and she will contact medical nurse at [facility] for [place] authorization. Jess given [place] contact/[facility] phone number. Jess does not anticipate that there will be any problem with authorization. Plan: SW to follow closely after son arrives tonight towards determining LT[facility] at [place] vs hospice. BALAJI Mcdermott
--- NOTE | 2021-01-12 20:12 | PM.CN ---
History of Present Illness Consult details Date Patient Seen: 01/12/21 Time Patient Seen: 20:12 Chief complaint: DIRECT ADMIT FROM [facility] [place] Reason for consult: Trach and PEG placement Requesting provider: Heide Campbell Narrative: The patient is a gentleman who I have been asked to place a PEG and a tracheostomy. He is a gentleman with respiratory failure and COVID pneumonia. He has been on a ventilator for the last 9 days. Thus far they have been unsuccessful in weaning and extubating him. He has is history of a TIA. He is a known diabetic with hypertension. Meds Home Medications and Allergies Home Medications Medication Instructions Recorded Confirmed Type atenolol 50 mg tablet 50 mg PO BEDTIME 12/28/20 12/28/20 History atorvastatin 40 mg tablet 80 mg PO BEDTIME 12/28/20 12/28/20 History clopidogrel 75 mg tablet 75 mg PO DAILY 12/28/20 12/28/20 History furosemide 20 mg tablet 20 mg PO BID 12/28/20 12/28/20 History glimepiride 4 mg tablet 4 mg PO BID 12/28/20 12/28/20 History insulin NPH isoph U-100 human 100 68 unit SUBCUT BID 12/28/20 12/28/20 History unit/mL subcutaneous suspension (Humulin N NPH U-100 Insulin (isophane susp)) lisinopril 20 mg tablet 20 mg PO BEDTIME 12/28/20 12/28/20 History metformin 850 mg tablet 850 mg PO TID 12/28/20 12/28/20 History Allergies Allergy/AdvReac Type Severity Reaction Status Date / Time No Known Drug Allergies Allergy Verified 12/28/20 23:21 Review of Systems Review of Systems Narrative: Unable to obtain as the patient is intubated. Apparently had developed diarrhea and confusion prior to arrival. Was transferred from [facility]. Exam Vital Signs (past 8 hours): - 01/12/21 13:00 01/12/21 14:00 01/12/21 15:00 Temperature 100.4 F H 100 F H 100 F H Pulse Rate 59 L 47 L 47 L Respiratory Rate 20 20 20 Blood Pressure 108/44 L 106/43 L 110/49 L Pulse Oximetry 99 98 98 01/12/21 16:41 01/12/21 19:41 Temperature 99.1 F Pulse Rate 45 L 55 L Respiratory Rate 20 20 Blood Pressure 101/45 L 118/58 L Pulse Oximetry 96 91 Fraction of Inspired Oxygen 45 SaO2/FiO2 Ratio 227 Oxygen Delivery Method Mechanical Ventilation Oxygen Flow Rate 5 Narrative Exam Narrative: Ventilated patient and sedated patient. Mendez in place. Lungs are clear anteriorly but I do not hear any breath sounds laterally or in the bases. Heart regular rate and rhythm. I do not appreciate a murmur gallop. Abdomen is protuberant. There is a protruding umbilical hernia. It is only partially reducible. No scars are seen on the abdominal wall. There may be a fluid wave. Extremities are padded. Patient is quite pale. Objective Labs Result Diagrams: 01/12/21 06:16 01/12/21 04:40 Labs: Laboratory Results - last 24 hr 01/12/21 01/12/21 01/12/21 00:45 00:45 04:40 WBC 15.8 H RBC 3.65 L Hgb 9.9 L Hct 30.8 L MCV 84.5 MCH 27.1 MCHC 32.0 RDW 15.5 H Plt Count 368 Neut % (Auto) 82.2 H Lymph % (Auto) 7.2 L [place] % (Auto) 9.9 Eos % (Auto) 0.2 L Baso % (Auto) 0.5 Neut # (Auto) 88796 H Lymph # (Auto) 1100 [place] # (Auto) 1600 H Eos # (Auto) 0 Baso # (Auto) 100 ABG pH ABG pCO2 ABG pO2 ABG HCO3 ABG Total CO2 ABG O2 Saturation ABG Base Excess FiO2 Sodium 135 L 134 L Potassium 4.4 4.1 Chloride 103 102 Carbon Dioxide 28 29 BUN 37 H 34 H Creatinine 0.81 0.86 Estimated GFR > 60.0 > 60.0 BUN/Creatinine Ratio 45.7 H 39.5 H Glucose 65 L 79 L Calcium 7.4 L 7.5 L Phosphorus 3.3 Magnesium 2.5 H Total Bilirubin 0.2 AST 38 ALT 55 H Alkaline Phosphatase 106 NT-Pro-B Natriuret Pep 1840 H Total Protein 6.0 L Albumin 2.8 L Globulin 3.2 Albumin/Globulin Ratio 0.9 L 01/12/21 01/12/21 05:50 06:16 WBC 12.6 H RBC 3.26 L Hgb 8.8 L Hct 27.8 L MCV 85.4 MCH 27.0 MCHC 31.6 RDW 15.4 H Plt Count 277 Neut % (Auto) 81.5 H Lymph % (Auto) 6.3 L [place] % (Auto) 11.3 Eos % (Auto) 0.1 L Baso % (Auto) 0.8 Neut # (Auto) 57203 H Lymph # (Auto) 800 L [place] # (Auto) 1400 H Eos # (Auto) 0 Baso # (Auto) 100 ABG pH 7.42 ABG pCO2 34.1 L ABG pO2 77 L ABG HCO3 22 ABG Total CO2 23 ABG O2 Saturation 96 ABG Base Excess -2.0 FiO2 70 Sodium Potassium Chloride Carbon Dioxide BUN Creatinine Estimated GFR BUN/Creatinine Ratio Glucose Calcium Phosphorus Magnesium Total Bilirubin AST ALT Alkaline Phosphatase NT-Pro-B Natriuret Pep Total Protein Albumin Globulin Albumin/Globulin Ratio [facility] Medical History HLD (hyperlipidemia) HTN (hypertension) Type 2 diabetes mellitus Social History household members: children Assessment & Plan Assessment and plan (1) Respiratory failure: Status: Acute Assessment & Plan narrative: I was asked to the patient regarding placement of a tracheostomy and a PEG tube. I am a bit concerned that he may have developed ascites. I have requested the actual films be sent from [facility] to our facility so I can review them specifically for the presence of fluid. None is mentioned in the report. In any event because he has been critically ill it may be useful to obtain ultrasound here to make sure no fluid/ascites has developed before proceeding with a PEG tube placement. Additionally, will talk to the son once am certain that we can proceed. I do not feel there is any emergent need at this time for placement of a tracheostomy Time Spent With Patient Critical Care time: I spent a total of [] minutes of critical care time on this patient's care today; this time is exclusive of procedural time.
[2021-01-12] MEDS: INSULIN GLARGINE 100 UNIT/ML 3ML PEN 60 UNIT SUBCUT (21:46)
[2021-01-12] MEDS: fentaNYL 1,000 MCG in DEXTROSE 5% IN WATER 230 ML 51.975 ML IV (22:58)
--- NOTE | 2021-01-12 23:04 | PM.ICURNDS ---
- Date Patient Seen: 01/12/21 Time Patient Seen: 23:04 :: This patient was seen via real time interactive two-way audiovisual telecommunication. Note: Remains on55% FiO2 on ventilator. Discussions are underway for a trach/PEG. Patient failed a sedation vacation but Precedex was also turned off completely during SAT. Tolerating feeds. Has had some hypoglycemic events and insulin glargine was 75 units SUBQ BID Interventions: -Decreased glargine to 60 units Recommendations -Daily SAT should ideally be conducted while Precedex is infusing Plans discussed with RN and RT.
[2021-01-13] VITALS (64 sets, daily range): BP systolic 94–232; BP diastolic 38–109; PULSE 38–109; RESP 15–26; TEMP 35.6–37.8; O2SAT 88–99
[2021-01-13] MEDS: DEXMEDETOMIDINE HCL 400 MCG in SODIUM CHLORIDE 0.9% 100 ML 17.784 ML IV (01:52)
[2021-01-13] MEDS: fentaNYL 100 MCG/2 ML INJ 41 MCG IV (03:48)
[2021-01-13] MEDS: fentaNYL 1,000 MCG in DEXTROSE 5% IN WATER 230 ML 57.75 ML IV ×4 (03:50→20:43)
[2021-01-13] MEDS: MIDAZOLAM 2 MG/2 ML VIAL IV ×7 (05:06→22:53)
[2021-01-13 05:20] LABS: Fractionated Inspired Oxygen 50; HCO3 ABG 22 mmol/L (22-26); Oxygen Saturation ABG 86 % (95-100); PCO2 ABG 37.5 mmHg (35-45); PO2 ABG 51 mmHg (80-100); TCO2 ABG 24 mmol/L (21-31); pH ABG 7.39 (7.35-7.45)
[2021-01-13] MEDS: PIPERACILLIN/TAZO 3.375 GM in SODIUM CHLORIDE 0.9% 100 ML 25 ML IV ×3 (05:31→22:14)
[2021-01-13] MEDS: DEXMEDETOMIDINE HCL 400 MCG in SODIUM CHLORIDE 0.9% 100 ML 23.712 ML IV (06:10)
--- NOTE | 2021-01-13 06:46 | DI.US.S_ITS ---
PROCEDURE: US ABDOMEN LIMITED INDICATIONS: POSSIBLE ASCITIES TECHNIQUE: Real-time focused scanning was performed of the abdomen, with image documentation. COMPARISON: None. FINDINGS: Evaluation of all 4 quadrants of the abdomen/pelvis demonstrates no free fluid. IMPRESSION: No ascites. Dictated by: Ifrah Quijano MD, PhD on 01/13/2021 at 7:32 Approved by: Ifrah Quijano MD, PhD on 01/13/2021 at 7:33
[2021-01-13] MEDS: BARICITINIB 2 MG TABLET 4 MG PO (08:57)
[2021-01-13] MEDS: INSULIN GLARGINE 100 UNIT/ML 3ML PEN 60 UNIT SUBCUT (08:57)
[2021-01-13] MEDS: FAMOTIDINE 20 MG/2 ML VIAL IV ×2 (08:59→21:02)
[2021-01-13] MEDS: SODIUM CHLORIDE 0.9% FLUSH 10 ML IV ×2 (08:59→21:03)
[2021-01-13] MEDS: ENOXAPARIN 40 MG/0.4 ML SYRINGE SUBCUT ×2 (08:59→21:02)
--- NOTE | 2021-01-13 10:31 | DIET.PN1 ---
Addendum entered by Natalee Kraft 01/13/21 16:44: If pt indeed does have PEG placed, current TF formula, rate and flushes remain appropriate. Original Note: Dietary Progress Note Assessment: 80y M covid+ c uncontrolled DM2 (A1c >10) on LOS day 16 on ventilator and receiving TF running at goal rate, tolerating feeding. CM and hospitalist working c pt's son on POC regarding placement of PEG for transfer to [place] vs hospice. Ht: 177.8 cm Wt: 115 kg BMI: 35.2 UBW: Last BM: 01/11/21 (01/11/21 22:44) MNA: 10 Jack Score: 11 Diet: 01/06/21 Dinner Tube Feeding Diet Diet Modifications: TF Supplement type: Glucerna 1.5 rita TF mode of delivery: Continuous Starting flow rate mL/hr: 45 Flow rate goal mL/hr: 45 Titration Schedule to reach Goal Rate: start at goal Max total daily volume in mL: 3,200 Free fluid: 350 Free Water Frequency: Q4H Comment: 350ml Q6 hours water flush Nutrition Type of Feeding Tube Dobhoff 01/13/21 09:00 Type of Feeding Tube Dobhoff 01/13/21 05:59 Type of Feeding Tube Dobhoff 01/13/21 00:00 Type of Feeding Tube Dobhoff 01/12/21 21:23 Type of Feeding Tube Dobhoff 01/12/21 18:30 Type of Feeding Tube Dobhoff 01/12/21 08:00 Type of Feeding Tube Dobhoff 01/12/21 04:00 Type of Feeding Tube Dobhoff 01/12/21 00:00 Type of Feeding Tube Gastrojejunostomy 01/11/21 12:00 Labs: RBC 3.26 X10^6/uL (4.5-5.9) L 01/12/21 06:16 Hgb 8.8 g/dL (13.5-17.5) L 01/12/21 06:16 Hct 27.8 % (41-53) L 01/12/21 06:16 Creatinine 0.86 mg/dL (0.66-1.25) 01/12/21 04:40 Hemoglobin A1c 10.7 % (4.0-6.0) H 12/28/20 19:20 NT-Pro-B Natriuret Pep 1840 pg/mL (<450) H 01/12/21 04:40 Monitoring/Evaluations: POC Electronically Signed by: Natalee Kraft 01/13/21 10:31 Clinical Dietitian [address] [address]
[2021-01-13] MEDS: DEXMEDETOMIDINE HCL 400 MCG in SODIUM CHLORIDE 0.9% 100 ML 26.676 ML IV ×3 (11:09→19:58)
[2021-01-13] MEDS: DEXTROSE 50 % IN WATER 25 GM/50 ML SYRINGE IV ×2 (11:10→18:06)
--- NOTE | 2021-01-13 11:55 | P.PN_ITS ---
Subjective Subjective Interval history: The patient is an 80 y/o male admitted with respiratory failure secondary to Covid Pneumonia, He remains intubated. He has been intubated since December. His son was in last night and would like us to proceed with a trach and peg placement. The patient is deeply sedated currently. He has at times been agitated resultingin desaturation on the ventilator. He is calm and oxygenating well. He was hypoglycemic again today. His insulin was decreased last night and will be decreased again today. Exam Vital Signs (past 8 hours): - 01/13/21 04:00 01/13/21 04:21 01/13/21 04:40 Temperature 99.9 F H 99.9 F H 99.9 F H Pulse Rate 109 H 102 H 91 H Respiratory Rate 21 19 17 Blood Pressure 204/103 H 221/89 H Pulse Oximetry 91 91 93 01/13/21 05:00 01/13/21 05:21 01/13/21 05:40 Temperature 100.0 F H 100.0 F H 100.0 F H Pulse Rate 92 H 49 L 47 L Respiratory Rate 17 20 20 Blood Pressure 217/96 H 110/59 L 118/60 Pulse Oximetry 88 L 90 L 93 01/13/21 06:00 01/13/21 06:20 01/13/21 06:40 Temperature 100.0 F H 100.0 F H 99.9 F H Pulse Rate 46 L 46 L 45 L Respiratory Rate 20 20 20 Blood Pressure 117/58 L 117/61 115/60 Pulse Oximetry 95 96 98 01/13/21 07:00 01/13/21 08:00 01/13/21 09:00 Temperature 99.9 F H 99.7 F H 99.5 F Pulse Rate 46 L 44 L 42 L Respiratory Rate 20 20 20 Blood Pressure 118/63 115/60 113/59 L Pulse Oximetry 99 98 01/13/21 10:00 01/13/21 11:00 Temperature 99.3 F 99.1 F Pulse Rate 41 L 41 L Respiratory Rate 20 20 Blood Pressure 104/56 L 108/58 L Pulse Oximetry 98 99 Fraction of Inspired Oxygen 0.55 SaO2/FiO2 Ratio 227 Oxygen Delivery Method Mechanical Ventilation Oxygen Flow Rate 5 Narrative Exam Narrative: Sedated male lying in bed intubated who appears to be comfortable Eyes Other: Sclerae anicteric, pupils are pinpoint Resp Other: Lungs decreased breath sounds, no crackles rhonchi or wheezes Cardio Other: Cardiac exam: Regular rate and rhythm normal S1-S2 GI Other: Abdomen: Soft nontender Other: Mendez catheter in place Extrem Other: 1+ pitting edema in the hands and feet Objective Labs Result Diagrams: 01/12/21 06:16 01/12/21 04:40 Labs: Laboratory Results - last 24 hr 01/13/21 04:30 ABG pH 7.39 ABG pCO2 37.5 ABG pO2 51 L ABG HCO3 22 ABG Total CO2 24 ABG O2 Saturation 86 L ABG Base Excess -3.0 L FiO2 50 [facility] Medical History HLD (hyperlipidemia) HTN (hypertension) Type 2 diabetes mellitus Social History household members: children Assessment & Plan Assessment & Plan narrative: COVID-19 pneumonia with acute hypoxic respiratory failure -unvaccinated male, COVID positive with bilateral consolidation on outside CT. elevated ESR, CRP, D-dimer. patient presented moderately ill with hypoxia on presentation, cough, profound weakness, and diarrhea as well as noted in acute renal failure -provide supplemental O2, since admission oxygen requirements were worsening. was advanced slowly, attempted precedex to avoid intubation, however ultimately worsened to point of needing intubation late on 01/02. Continue mechanical ventilation, appreciate tele-treatment counselor assistance. -patient has been unable to extubate -will continue Precedex and try spontaneous breathing trial today -in the event the patient is unable to be weaned will proceed with trach as discussed yesterday -should the patient get a PEG and trach plans are underway for him to [facility] -patient has completed a 10 day course of remdesivir and Decadron -he is on baracitnib until January for a total of 14 days -Still not making much progress towards extubation, discussed with son. His son, LUCÍA would like to proceed with trach/peg if unable to wean 2. Fever -developed fever on 01/09 -concern for possible bacterial infection -sputum, blood, urine cultures sent and pending -ordered for vancomycin/zosyn -procalcitonin ordered -sputum produced is thick -chest xray appears largely unchanged -MRSA PCR is negative, will discontinue vancomycin, continue Zosyn -will repeat procalcitonin in the morning -suspect probable ventilator associated pneumonia -WBC increasing, consider adding antifungal -procalcitonin .35 today ( not suggestive of bacterial infection) -patient remains on zosyn for possible ventilatory associated pneumonia -chest xray confirms continued bilateral opacities -sputum growing yeast and spigomoas paucimobilis -will defer adding Diflucan to Drug Coordinator , still febrile 3. Acute metabolic encephalopathy, delirium from versed -patient presented with confusion in setting of hypoxia, NIXON, COVID pneumonia and UTI. Initially improved but worsened on 01/02. -worsening likely hospital induced delirium and worsening hypoxia. Attempted haldol, ativan without much help. Tried fentanyl, and precedex for sedation in hopes to avoid intubation however these were unsuccessful and patient continued to decline -01/08 patient noted to be unresponsive and sedation able to be weaned down, still not responding, CT head ordered for further evaluation and was negative -switched to propofol from versed due to prolonged sedation time -tapering propofol and fentanyl for spontaneous breathing trial -patient unable to tolerate SBT -now on precedex/seroquel, increased FI02 to 70%, PEEP 10 -oxygenation improved, now on Fio2 .55 and Peep 8 -attempt SBT on low dose precedex today 4. Urinary tract infection, resolved -completed 7 days of ceftriaxone 5. Chronic urinary retention with bilateral hydronephrosis on CT -Mendez placed at outside ED, manage Mendez -started tamsulosin 0.4 mg daily 5. 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 and metformin 850 mg t.i.d. -continue to increase lantus due to hyperglycemia, now at 85u bid -he remains hypoglycemic, insulin decreased to 60 units bid yesterday, decreasing to 40 units daily today plus prn -will continue to monitor closely 6. Acute kidney injury, resolved -likely prerenal due to diarrhea associated with COVID, possible obstructive component as well. -serum creatinine 3.2 at outside ED, baseline creatinine appears 1.48 from April 2019, improved to 0.68 now. 7. Disposition-patient appears to be long hauler or unable to wean- Discussed goals of care with son multiple times. AT this time they would like to proceed with PEG/Trach Abdominal ultrasound reveals no ascites. Dr. Locke to discuss with son today. Patient remains a full code. Time Spent With Patient Critical Care time: I spent a total of [] minutes of critical care time on this patient's care today; this time is exclusive of procedural time.
--- NOTE | 2021-01-13 13:36 | CM.DPNOTE ---
Faxed updated clinicals to [facility] and received fax conf. Lauren Fierro CM Asst.
--- NOTE | 2021-01-13 14:50 | PC.NURSE ---
Day Shift Note Pt tolerated full bed bath/linen change after 2 mg versed, allevyn dressings x2 placed to buttocks. Skin to buttocks is macerated and open, draining serosanguinous fluid, surrounding skin erythemic, not blanching. BLEs mottled. Turning every 2 hours as able. Precedex 0.7 mcg/kg/hr and fentanyl 2 mcg/kg/hr majority of shift, RASS -4. Fentanyl gtt turned off at [address] Campbell, precedex remained on. Pt became agitated at about 1420, pulling at restraints and shaking head. Attempted to reorient to place and situation, pt not following any commands, no eye opening noted. BP up to the 230s/90s and HR 90-100. SpO2 decreased from 97% to 90-93%. Pt with bigeminal PVCs for about 40 seconds, resolved with increase in sedation. Findings reviewed with Dr. Campbell and pt restarted on all sedation. Precedex at 0.9 mcg/kg/hr and fentanyl 2 mcg/kg/hr. CBG 36 at 1100, 1 amp D50 administered and CBG up to 136 - Dr. Campbell notified and new orders for insulin received.
--- NOTE | 2021-01-13 15:14 | CM.DPNOTE ---
DCP Note Following closely as medical POC unfolds. According to Dr Campbell, chart indicates patient asserted his wishes to Dr Linn for no trach placement, therefore Dr Gan will not place peg/trach. Son continues to ask that trach/peg be placed. Dr Linn returns to service tomorrow and will continue conversation w/family re: next steps in medical POC Meanwhile, Joanna anupam [facility] has spoken w/Jess/Onur and both have agreed to the following plan IF trach/peg were placed: DC to [facility] via BLS same day vs next day of procedures. Awaiting further clarification re: medical POC. Ethics committee may be appropriate pending patient's status and input from family over next 24 hrs JW
[2021-01-13] MEDS: CHLORHEXIDINE GLUCONATE 15 ML CUP PO ×2 (17:58→23:58)
--- NOTE | 2021-01-13 18:05 | P.PN_ITS ---
Exam Vital Signs (past 8 hours): - 01/13/21 10:20 01/13/21 10:56 01/13/21 11:00 Temperature 99.3 F 99.1 F Pulse Rate 41 L 41 L 41 L Respiratory Rate 20 20 20 Blood Pressure 102/57 L 105/58 L 108/58 L Pulse Oximetry 98 98 99 01/13/21 12:00 01/13/21 13:00 01/13/21 14:00 Temperature 98.8 F 98.4 F 98.4 F Pulse Rate 39 L 40 L 39 L Respiratory Rate 20 20 20 Blood Pressure 104/56 L 106/55 L 108/56 L Pulse Oximetry 98 97 97 01/13/21 15:00 01/13/21 15:01 01/13/21 16:00 Temperature 98.1 F 98.1 F 98.2 F Pulse Rate 41 L 41 L 49 L Respiratory Rate 20 20 20 Blood Pressure 120/58 L 165/77 H Pulse Oximetry 95 95 99 01/13/21 16:33 01/13/21 16:39 01/13/21 16:46 Temperature 98.4 F 98.4 F 98.4 F Pulse Rate 42 L 74 56 L Respiratory Rate 20 17 20 Blood Pressure 114/59 L 210/98 H 169/70 H Pulse Oximetry 96 95 95 01/13/21 17:00 Temperature 98.4 F Pulse Rate 40 L Respiratory Rate 20 Blood Pressure 111/55 L Pulse Oximetry 94 Fraction of Inspired Oxygen 0.5 SaO2/FiO2 Ratio 227 Oxygen Delivery Method Mechanical Ventilation Oxygen Flow Rate 5 Objective Labs Result Diagrams: 01/12/21 06:16 01/12/21 04:40 Labs: Laboratory Results - last 24 hr 01/13/21 04:30 ABG pH 7.39 ABG pCO2 37.5 ABG pO2 51 L ABG HCO3 22 ABG Total CO2 24 ABG O2 Saturation 86 L ABG Base Excess -3.0 L FiO2 50 PFSH Medical History HLD (hyperlipidemia) HTN (hypertension) Type 2 diabetes mellitus Social History household members: children Assessment & Plan Assessment and plan (1) Respiratory failure: Status: Acute Assessment & Plan narrative: In review today in anticipation of tracheostomy and a PEG placement tomorrow i.e. discovered several notes by Dr. Linn detail ink that when the patient was coherent he expressed that he did not desire to have a tracheostomy. He was willing to be intubated but not have tracheostomy performed. This puts a completely different light on the family's request to proceed with a feeding tube and a tracheostomy. I asked Dr. Campbell to clarify this with the son who has the [facility] medical power of attorney recruiter. If he wished that we proceed I would request an ethics committee gathering in order to evaluate this request. From the notes by Dr. Linn it is very clear that this was not the wishes of the patient. I called Dr. Campbell just few minutes ago and apparently the son understood and said okay to the proposition of not proceeding and attempting to further wean him from the ventilator while he has got an ET tube in place. Time Spent With Patient Critical Care time: I spent a total of [] minutes of critical care time on this patient's care today; this time is exclusive of procedural time.
--- NOTE | 2021-01-13 21:49 | PM.ICURNDS ---
- Date Patient Seen: 01/13/21 Time Patient Seen: 21:49 :: This patient was seen via real time interactive two-way audiovisual telecommunication. Note: Patient continues to have intermittent episodes of agitation marred by hypertension and patient-ventilator dyssynchrony; this necessitated IVP PRN midazolam. Insulin glargine has been stopped due to multiple hypoglycemic episodes that did not improve with yesterday's dose reduction. Feeds currently on hold due to gastric residuals of 400 mL; these will be resumed shortly. No changes in ventilator support. There are ongoing discussions between the bedside care team and surrogate decision-makers whether tracheostomy/PEG would be congruent with the patient's aforementioned wishes, Will start Reglan; otherwise, continue the current plan as per the bedside team. If there is no resolution in the goals of care soon, I will be happy to speak to the surrogate decisionmakers next week (if desired by the bedside team). If he does not receive a tracheostomy/PEG soon, he should either have a one-way extubation with no re-intubation or a compassionate extubation with a transition to palliation. As a first step, I would strongly recommend the establishment of a DNAR code status. Discussed with RN and RT.
--- NOTE | 2021-01-13 23:19 | PC.NURSE ---
End of Shift Note Pt sedated with Precedex and Fentanyl, and required intermittant Versed IV for periods of agitation when turned or other care given. Required D50W for BG of 55 at 1800, notified and Zuri Ramos. Tube feedings held for 2 hrs at 1800 and 2200 with residual 300.
[2021-01-13] MEDS: METOCLOPRAMIDE 10 MG/2 ML INJ 5 MG IV (23:58)
[2021-01-14] VITALS (34 sets, daily range): BP systolic 105–225; BP diastolic 42–143; PULSE 39–126; RESP 14–25; TEMP 35.3–37.3; O2SAT 88–99
[2021-01-14] MEDS: MIDAZOLAM 2 MG/2 ML VIAL IV ×5 (01:38→11:02)
[2021-01-14] MEDS: DEXMEDETOMIDINE HCL 400 MCG in SODIUM CHLORIDE 0.9% 100 ML 20.748 ML IV ×2 (01:39→06:23)
[2021-01-14] MEDS: fentaNYL 1,000 MCG in DEXTROSE 5% IN WATER 230 ML 57.75 ML IV ×3 (01:40→10:19)
[2021-01-14 03:33] LABS: Fractionated Inspired Oxygen 50; HCO3 ABG 23 mmol/L (22-26); Oxygen Saturation ABG 93 % (95-100); PCO2 ABG 32.6 mmHg (35-45); PO2 ABG 62 mmHg (80-100); TCO2 ABG 24 mmol/L (21-31); pH ABG 7.46 (7.35-7.45)
[2021-01-14 04:25] LABS: Add Manual Diff / Slide Review NO; Basophils Absolute Auto 100 /uL (0-100); Basophils Percent Auto 0.7 % (0-2); Eosinophils Absolute Auto 100 /uL (0-450); Eosinophils Percent Auto 0.6 % (2-4); Hematocrit 27.4 % (41-53); Lymphocytes Absolute Auto 1200 /uL (1100-4500); Lymphocytes Percent Auto 14.9 % (25-40); Mean Corpuscular HGB Conc 32.7 % (30-36); Mean Corpuscular Hemoglobin 27.5 PG (26-34); Monocytes Absolute Auto 800 /uL (0-900); Monocytes Percent Auto 9.5 % (3-14); Neutrophils Absolute Auto 6100 /uL (1500-7000); Neutrophils Percent Auto 74.3 % (50-75); Platelet Count 297 X10^3/uL (150-400); Red Blood Cell Count 3.26 X10^6/uL (4.5-5.9); Red Cell Distribution Width 15.8 % (11.6-14.8); White Blood Cell Count 8.2 X10^3/uL (4.5-11.0)
[2021-01-14 04:34] LABS: Alanine Aminotransferase 83 IU/L (<50); Albumin 2.6 g/dL (3.5-5.0); Albumin Globulin Ratio 0.8 (1.0-2.8); Alkaline Phosphatase 206 U/L (38-126); Aspartate Aminotransferase 58 IU/L (17-59); BUN Creatinine Ratio 48.1 (6-22); Bilirubin Total 0.2 mg/dL (0.2-1.3); Blood Urea Nitrogen 39 mg/dL (9-20); Calcium 7.5 mg/dL (8.4-10.2); Carbon Dioxide 26 mmol/L (22-32); Chloride 100 mmol/L (98-107); Estimated Glomerular Filt Rate > 60.0 mL/min (>60); Globulin 3.1 g/dL (1.7-4.1); Glucose 90 mg/dL (80-110); HEMOLYSIS < 15 (0-50); Sodium 129 mmol/L (137-145); Total Protein 5.7 g/dL (6.3-8.2)
[2021-01-14] MEDS: METOCLOPRAMIDE 10 MG/2 ML INJ 5 MG IV (05:46)
[2021-01-14] MEDS: CHLORHEXIDINE GLUCONATE 15 ML CUP PO ×2 (05:47→11:01)
[2021-01-14] MEDS: PIPERACILLIN/TAZO 3.375 GM in SODIUM CHLORIDE 0.9% 100 ML 25 ML IV (06:18)
[2021-01-14] MEDS: BARICITINIB 2 MG TABLET 4 MG PO (08:54)
[2021-01-14] MEDS: FAMOTIDINE 20 MG/2 ML VIAL IV (08:54)
[2021-01-14] MEDS: ENOXAPARIN 40 MG/0.4 ML SYRINGE SUBCUT (08:55)
[2021-01-14] MEDS: SODIUM CHLORIDE 0.9% FLUSH 10 ML IV (08:57)
--- NOTE | 2021-01-14 12:32 | PC.NURSE ---
Addendum entered by Oralia Merlos R.N. 01/14/21 14:42: DAUGHTER- FRANCOIS HERE AND SENT TELEPHONE AND GLASSES ( THE SUM OF HIS PERSONAL BELONGINGS) Addendum entered by Oralia Merlos R.N. 01/14/21 13:53: order received to extubate pt and this was done at 1315 and pt almost immediately became cyanotic and mottled- art line out and restraints removed- pt made no purposeful movement and was stridorous - at 1344- MD called son to report Original Note: LIMITED RESPONSE TO COMMANDS BY THIS RN AT TIMES, ON THE RIGHT- HE WILL SQUEEZE LEFT HAND UPON REQUEST OTHER TIMES LIGHTLY SQUEEZE RIGHT HAND-- DOES NOT OPEN EYES TO REQUEST. CPAP TRIAL INITIATED AT 1145 AND ALL SEDATION GTTS TURNED TO OFF AT THIS TIME WELL- PT REMAINS TACHYCARDIC DURING THIS EPISODE AFT. ER BEING IN A BRADYCARDIC RHYTHM EARLIER
--- NOTE | 2021-01-14 13:53 | P.DN_ITS ---
Discharge Summary History of Illness Narrative: Patient is 80-year-old male with history insulin dependent type 2 diabetes, hypertension, hyperlipidemia, TIA in April 2019 presented to [facility] Emergency Department on 12/27 with complaints of weakness, cough, diarrhea and confusion.? Patient is able to give limited history but son reports that he has been declining in the past week with severe diarrhea and weakness to the point where son had to help him with all activities.? Patient normally amb ulates on his own and has been unable to get out of chair without help.? Son also noticed there was some blood in his adult diaper.? On presentation to ER patient had respiratory rate of 27 and sat of 84% on room air and subsequently 97% on 2 L.? Noncontrast chest an abdomen pelvis CT showed bilateral diffuse consolidation as well as bilateral hydroureter and hydronephrosis.? Outside labs showed WBC 5.4, hemoglobin 12.1, platelets 134.? On chemistry sodium 137, potassium 4.3, chloride 104, CO2 16, anion gap 17, glucose 84, BUN 79, creatinine 3.28.? He had mildly elevated LFTs with ALT 80, AST 75, normal bilirubin 0.2, normal alk-phos 89.? He had abnormal UA with 4+ bacteria and greater than 100 WBC.? Patient does note chronic difficulty urinating and history of BPH though is not on medications for his prostate.? Patient is not vaccinated for COVID.? Patient denies history of IA or stent or CHF.? He is on furosemide for chronic edema in legs.? Family history noncontributory.? Lives with his son. Interventions in outside ER included aggressive IV hydration of 5 L, Rocephin 1 g IV, dexamethasone 6 mg IV. Patient is on Humulin N 68 units b.i.d., metformin 850 mg t.i.d., lisinopril 20 mg HS, glimepiride 4 mg b.i.d., furosemide 20 mg b.i.d., atorvastatin 80 mg HS, it atenolol 50 mg HS, clopidogrel 75 mg daily Hospital Course Date of Admission: 12/28/20 16:41 Primary care provider: Gregorio Rankin MD Consults: 12/31/20 23:42 Consult After Hours PICC Line RN Routine Comment: 01/02/21 21:07 Consult to Dietitian, Adult Routine Comment: Reason For Exam: Patient on Ventilator and NPO 01/12/21 11:59 Consult to General Surgery Routine Comment: Consulting Provider: Larry Gan Reason for consultation: needs a trach and peg for transfer to [facility] Has provider been notified: Yes Discharge provider: Dr. Heide Campbell Discharge Diagnosis: 1. Acute respiratory failure secondary to COVID pneumonia 2. COVID pneumonia 3. Type 2 diabetes 4. Hypertension 5. Hyperlipidemia 6. History of TIA 7. Acute metabolic encephalopathy 8. Acute kidney injury, present on admission, resolved 9. Urinary tract infection, completed treatment 10. Probable ventilator associated pneumonia Hospital Course: Patient was admitted to the hospital as a direct admit from [facility] for her acute respiratory failure secondary to COVID pneumonia. Patient was treated with remdesivir, Decadron, and baricitnib. Despite maximum treatment patient developed progressive respiratory failure and required intubation on January 02. The patient remain intubated. There were difficulty managing his agitation, ventilation, blood pressure. Tube feeds were initiated. The home patient had multiple attempts to manage sedation including Precedex fentanyl and propofol. The patient had indicated at the time of admission that he would not want tracheostomy. However his son who was a DPOA wanted to pursue tracheostomy. We consulted our general surgeon who felt that we had documented the patient's wishes and would not pursue tracheostomy. The patient remained ventilated for 10 days. Despite full treatment he continued to have difficulty with both ventilation, agitation, and overall management. He continued to be febrile despite antibiotics. Blood sugars were erratic and insulin was adjusted accordingly. Ultimately the family agreed to extubate with the plan for comfort measures. The patient was made DNR. He was extubated and the patient quickly thereafter. The son was notified. Objective Labs Result Diagrams: 01/14/21 04:20 01/14/21 04:20 Labs: Laboratory Results - last 24 hr 01/14/21 01/14/21 01/14/21 03:22 04:20 04:20 WBC 8.2 RBC 3.26 L Hgb 9.0 L Hct 27.4 L MCV 84.0 MCH 27.5 MCHC 32.7 RDW 15.8 H Plt Count 297 Neut % (Auto) 74.3 Lymph % (Auto) 14.9 L Colbert % (Auto) 9.5 Eos % (Auto) 0.6 L Baso % (Auto) 0.7 Neut # (Auto) 6100 Lymph # (Auto) 1200 Colbert # (Auto) 800 Eos # (Auto) 100 Baso # (Auto) 100 ABG pH 7.46 H ABG pCO2 32.6 L ABG pO2 62 L ABG HCO3 23 ABG Total CO2 24 ABG O2 Saturation 93 L ABG Base Excess 0.0 FiO2 50 Sodium 129 L Potassium 4.0 Chloride 100 Carbon Dioxide 26 BUN 39 H Creatinine 0.81 Estimated GFR > 60.0 BUN/Creatinine Ratio 48.1 H Glucose 90 Calcium 7.5 L Total Bilirubin 0.2 AST 58 ALT 83 H Alkaline Phosphatase 206 H D Total Protein 5.7 L Albumin 2.6 L Globulin 3.1 Albumin/Globulin Ratio 0.8 L
--- NOTE | 2021-01-14 16:07 | RT ---
Patient started his weaning trial at 1145 and lasted until 1315 at which we extubated. His settings were 5/5 and Fio2 of 80% and RSBI in low 20's and patient was not fully following commands and I was unable to get a NIF/VC . Patient was able to squeeze my hand otherwise not much other then that. Dr. Campbell was aware of the failed parameters and readiness of extubation and ordered for extubation after talking with son and made the decision for his dad to become DNR. [address] on 60L and 100% HHFNC and patients SPO2 tanked instantly in 70's and further.Patient at 1344 with Cat and I at bedside.
--- NOTE | 2021-01-19 10:09 | PC.NURSE ---
Late entry: Documentation corrections Restraint Assessment on 01/04/21 @ 2000 indicates an answer of yes to the questions of signs of injury related restraints. However, the patient did NOT have signs of injury related to restraints. The use of restraints was without adverse event. Skin Assessment on 01/05/21 @ 1930 indicates the patient had a pressure injury to the coccyx/sacrum. The physician was aware of the injury, and appropriate interventions (for example, frequent repositioning) were utilized as tolerated by patient's clinical status.
== END 2021-01-15 01:38 | disposition expired | DRG 207 ==
LOC: AC 12-30 09:34 → ICU 12-31 08:12
PROVIDERS: Internal Medicine; Internal Medicine Critical Care Medicine; Admitting Provider Internal Medicine; PCP Family Medicine; Referring Provider Internal Medicine; Visit Provider Internal Medicine
DX: U07.1 COVID-19 (principal); J12.82 Pneumonia due to coronavirus disease 2019; J96.01 Acute respiratory failure with hypoxia; G92.8 Other toxic encephalopathy; N17.9 Acute kidney failure, unspecified; N39.0 Urinary tract infection, site not specified; N13.30 Unspecified hydronephrosis; J95.851 Ventilator associated pneumonia; E86.0 Dehydration; R33.9 Retention of urine, unspecified; B96.89 Other specified bacterial agents as the cause of diseases classified elsewhere; R00.1 Bradycardia, unspecified; T42.4X5A Adverse effect of benzodiazepines, initial encounter; Y95 Nosocomial condition; E11.9 Type 2 diabetes mellitus without complications; I10 Essential (primary) hypertension; E66.9 Obesity, unspecified; E78.5 Hyperlipidemia, unspecified; Z79.4 Long term (current) use of insulin; Z86.73 Personal history of transient ischemic attack (TIA), and cerebral infarction without residual deficits; Z68.36 Body mass index [BMI] 36.0-36.9, adult; Z51.5 Encounter for palliative care
CPT/HCPCS: 36415; 36592; 36600; 70450; 71045; 74018; 76705; 80048; 80053; 80076; 80202; 81001; 82330; 82805; 82962; 83036; 83690; 83735; 83880; 84100; 84132; 84145; 84478; 85007; 85025; 85027; 85379; 85610; 85651; 86140; 87040; 87045; 87070; 87077; 87086; 87205; 87493; 87797; 87899; 93005; 93970; 94002; 94003; 94010; 94760; 94799; 99231; 99232; J0696; J1100; J1630; J1642; J1650; J1815; J1940; J2060; J2250; J2543; J2704; J2765; J3010; J3475; J3490